=== PATIENT | male | born 1945 | race Caucasian/White ===

== ENCOUNTER → 2016-05-26 | Outpatient (CLI) | payer BC ==
[~2016-05-26] MED LIST: ASPI81TA28 PO; ASTN; ATOR-26 PO; CETI10TA84 PO; CHOL100010 PO; EMERGEN-C PO; LISI-461 PO; MULT-506 PO; TRIA3AER NAE
[2016-05-26 12:21] LABS: BASO % 0.4 %; BASO ABS # 0.02 K/uL (0-0.2); COMPLETE YES; EOS % 0.6 %; HEMATOCRIT 44.5 % (42-52); IG% 0.4 %; LYMPH % 44.3 %; LYMPH ABS # 2.33 K/uL (1.2-3.4); MEAN CELL VOLUME 81.5 fL (80-100); MEAN CORPUSCULAR HEMOGLOBIN 27.5 pg (25-34); MEAN CORPUSCULAR HGB CONC 33.7 g/dl (32-36); MEAN PLATELET VOLUME 8.8 fL (7.4-10.4); MONO % 4.4 %; NEUT % 49.9 %; PLATELET COUNT 195 K/uL (130-400); RED BLOOD COUNT 5.46 M/uL (4.7-6.1); WHITE BLOOD COUNT 5.26 K/uL (4.8-10.8)
[2016-05-26 12:50] LABS: CHOLESTEROL/HDL RATIO 3.3
== END | disposition home or self-care (01) ==
LOC: C.LABBFT 07:44
PROVIDERS: ATTEND Internal Medicine
DX: E78.00 Pure hypercholesterolemia, unspecified (principal); D72.819 Decreased white blood cell count, unspecified

== ENCOUNTER → 2016-06-09 | Outpatient (CLI) | payer BC ==
--- NOTE | 2016-06-09 13:29 | DIAGNOSTIC IMAGING REPORT ---
Limited inguinal ultrasound ABDOMEN FOR HERNIA CLINICAL HISTORY: Hernia hernia repair TECHNIQUE: Ultrasound COMPARISON STUDY: 02/16/2016 FINDINGS: Reducible fat-containing left inguinal hernia. Interval placement of what appears to be post operative mesh. No evidence of bowel containment. IMPRESSION: 1. Reducible fat-containing left inguinal hernia. 2. Mesh within the soft tissues from a prior repair attempt 3. No evidence for bowel containment Electronically signed by: Sergio Martin M.D. 06/09/2016 1:28 PM Dictated Date/Time: 06/09/2016 1:25 PM
== END | disposition home or self-care (01) ==
LOC: C.ULTRBC 12:39
PROVIDERS: ATTEND Internal Medicine
DX: K40.90 Unilateral inguinal hernia, without obstruction or gangrene, not specified as recurrent (principal)

== ENCOUNTER → 2016-12-20 | Outpatient (CLI) | payer BC ==
[2016-12-20 12:13] LABS: URINE APPEARANCE CLEAR (CLEAR); URINE BILIRUBIN NEG (NEG); URINE COLOR YELLOW; URINE EPITHELIAL CELL AUTO 0-5 /lpf (0-5); URINE NITRITE NEG (NEG); URINE SPECIFIC GRAVITY 1.014 (1.000-1.030); UROBILINOGEN NEG (NEG); ZZUR CULT IF INDIC CLEAN CATCH NO
[2016-12-20 12:14] LABS: MANUAL MICROSCOPIC REQUIRED? NO; REVIEW REQ? NO
[2016-12-20 12:26] LABS: BLOOD UREA NITROGEN 14 mg/dl (7-18); BUN/CREATININE RATIO 14.7 (10-20); CALCIUM 8.9 mg/dl (8.5-10.1); CARBON DIOXIDE 27 mmol/L (21-32); CHLORIDE 106 mmol/L (98-107); CREATININE 0.95 mg/dl (0.60-1.40); GLUCOSE 91 mg/dl (70-99); POTASSIUM 3.8 mmol/L (3.5-5.1); SODIUM 139 mmol/L (136-145)
--- NOTE | 2017-01-04 09:10 | CODING QUERY MEDICAL NECESSITY ---
CQSUPPORTING DIAGNOSIS NEEDED A supporting diagnosis is required for the test/procedure performed on this patient in order for us to be reimbursed by the patient's insurance. Please provide a supporting diagnosis for the following test/procedure listed below next to the test name along with your signature. *If there is no additional diagnosis for this patient that would support the following test/procedure please document that below next to the test/procedure. Test(s)/Procedure(s) that require a supporting diagnosis: DOS 12/20/16 PROSTATE SPECIFIC TEST Provider Signature: Date: Thank you Ronda Myers [employer] Once completed, please kindly fax back to [phone] For questions please call [phone]
== END | disposition home or self-care (01) ==
LOC: C.LABBFT 09:06
PROVIDERS: ATTEND Internal Medicine
DX: Z00.00 Encounter for general adult medical examination without abnormal findings (principal); I10 Essential (primary) hypertension; E78.00 Pure hypercholesterolemia, unspecified; N52.9 Male erectile dysfunction, unspecified

== ENCOUNTER → 2017-03-17 | Outpatient (CLI) | payer BC ==
[~2017-03-17] VITALS: Ht 170.2 cm; Wt 87.7 kg
[2017-03-17 13:05] VITALS: BP 149/81; PULSE 69; Ht 170.2 cm; Wt 87.7 kg
== END | disposition home or self-care (01) ==
LOC: C.NEUR 12:30
PROVIDERS: ATTEND Internal Medicine Pulmonary Disease
DX: G47.30 Sleep apnea, unspecified (principal); I10 Essential (primary) hypertension

== ENCOUNTER → 2017-06-20 | Outpatient (CLI) | payer BC ==
[2017-06-20 12:49] LABS: ALT/SGPT 30 U/L (12-78); AST/SGOT 16 U/L (15-37); BLOOD UREA NITROGEN 12 mg/dl (7-18); CHOLESTEROL 145 mg/dl (0-200); CREATININE 0.92 mg/dl (0.60-1.40)
[2017-06-20 13:02] LABS: LDL CHOLESTEROL CALCULATED 77 mg/dl
== END | disposition home or self-care (01) ==
LOC: C.LABBFT 08:29
PROVIDERS: ATTEND Physician Assistant Medical
DX: E78.00 Pure hypercholesterolemia, unspecified (principal); I10 Essential (primary) hypertension; R97.20 Elevated prostate specific antigen [PSA]

== ENCOUNTER → 2017-07-18 | Outpatient (CLI) | payer BC ==
[2017-07-19 18:16] LABS: GUINEA PIG ALLERGEN IGE <0.10 KU/L
== END | disposition home or self-care (01) ==
LOC: C.LAB1850 11:23
PROVIDERS: ATTEND Specialist
DX: J01.90 Acute sinusitis, unspecified (principal); J30.89 Other allergic rhinitis; H10.45 Other chronic allergic conjunctivitis

== ENCOUNTER 2017-11-02 19:55 | Emergency (ER) | payer BC ==
[~2017-11-02] VITALS: Ht 170.2 cm; Wt 86.8 kg
[2017-11-02 19:56] VITALS: TEMP 36.7; Ht 170.2 cm; Wt 86.8 kg
[2017-11-02] MEDS ORDERED: DIPHTHERIA/TETANUS/PERTUSSIS 0.5 ML SYR/VIAL IM. ONE ×2 (20:15→23:00)
--- NOTE | 2017-11-02 20:34 | DIAGNOSTIC IMAGING REPORT ---
SINGLE VIEW CHEST CLINICAL HISTORY: Atypical chest pain. FINDINGS: An AP, portable, upright chest radiograph is obtained. No prior studies are available for comparison at the time of dictation. The examination is degraded by portable technique and patient rotation. The heart is enlarged and there is atherosclerotic calcification of the thoracic aorta. The pulmonary vasculature is noncongested. Bibasilar atelectasis is noted. No airspace consolidation, large pleural effusion, or pneumothorax is seen. The skeletal structures are osteopenic. There are age indeterminant right lateral rib fractures. IMPRESSION: 1. Cardiomegaly with no acute cardiopulmonary abnormality. 2. There are age indeterminant right lateral rib fractures. Correlate for point tenderness. Electronically signed by: Israel Simmons M.D. 11/02/2017 8:33 PM Dictated Date/Time: 11/02/2017 8:31 PM
[2017-11-02 20:38] LABS: BASO % 0.2 %; BASO ABS # 0.01 K/uL (0-0.2); EOS % 0.6 %; EOS ABS # 0.03 K/uL (0-0.5); HEMATOCRIT 43.5 % (42-52); HEMOGLOBIN 14.7 g/dL (14.0-18.0); IG# 0.02 K/uL (0.00-0.02); LYMPH % 27.2 %; LYMPH ABS # 1.47 K/uL (1.2-3.4); MEAN CELL VOLUME 82.1 fL (80-100); MEAN CORPUSCULAR HEMOGLOBIN 27.7 pg (25-34); MEAN CORPUSCULAR HGB CONC 33.8 g/dl (32-36); MEAN PLATELET VOLUME 8.9 fL (7.4-10.4); MONO % 7.6 %; MONO ABS # 0.41 K/uL (0.11-0.59); NEUT ABS # 3.47 K/uL (1.4-6.5); PLATELET COUNT 162 K/uL (130-400); RED CELL DISTRIBUTION WIDTH CV 14.9 % (11.5-14.5); RED CELL DISTRIBUTION WIDTH SD 44.6 fL (36.4-46.3); WHITE BLOOD COUNT 5.41 K/uL (4.8-10.8)
--- NOTE | 2017-11-02 20:53 | EMERGENCY ROOM VISIT NOTE ---
History Report prepared by Kiel: Pari Jenkins Under the Supervision of: Dr. Vern Petersen M.D. First contact with patient: 20:01 Chief Complaint: SYNCOPE Stated Complaint: BLACKED OUT, HIT HEAD ON TOP, FACIAL INJURIES History of Present Illness The patient is a 72 year old male who presents to the Emergency Room with complaints of an episode of syncope that occurred just prior to arrival. The patient states that he was drinking a beer at a friend's house when he suddenly felt like "it did not want to go down the right pipe." The patient notes he had drunk 2 beers prior. The patient notes that he then passed out for a few seconds and fell and hit his face. The patient reports that he has had similar difficulty swallowing and subsequent dizziness for years, but he states that has never fallen from such an episode. The patient notes that he felt fine before he passed out and that after he regained consciousness, his lip was bleeding. He notes that his teeth did not feel offset and he did not have a headache. The patient also denies feeling sick lately, chest pain, dizziness, shortness of breath, neck pain, abdominal pain, numbness, and weakness. He also denies any seizure activity during his syncope and any major injuries. Per spouse, the patient has not been acting confused since the episode. The patient notes that he is probably due for a Tetanus shot soon. The patient reports a history of hypertension and hyperlipidemia, and he notes that he takes Aspirin. Source of History: patient, spouse/significant other Onset: just prior to arrival Position: head Quality: other (syncope) Timing: other (episode) Associated Symptoms: No headache, No neck pain, No chest pain, No SOB, No abdominal pain, No weakness, No numbness Note: additional symptoms: bleeding lip, difficulty swallowing denies: dizziness Review of Systems See HPI for pertinent positives & negatives. A total of 10 systems reviewed and were otherwise negative. Past Medical & Surgical Medical Problems: (1) Hyperlipidemia (2) Hypertension Old medical records were reviewed. Nurse's notes were reviewed and I agree with. Family History No pertinent family history Social History Smoking Status: Never Smoker Marital Status: Current/Historical Medications Scheduled Amoxicillin & Pot Clavulanate (Augmentin 875-125 mg), 875 MG PO BID Aspirin (Aspirin Ec), 81 MG PO DAILY Atorvastatin (Lipitor), 80 MG PO QAM Cetirizine (Zyrtec), 10 MG PO DAILY Fluticasone Propionate (Nasal) (Flonase Allergy Relief), 2 SPRAYS MICHAELA QAM Lisinopril (Zestril), 10 MG PO DAILY Multivitamin (Multivitamin), 1 TAB PO DAILY Scheduled PRN Azelastine Hcl (Astelin Nasal [place]), 2 SPRAYS NA DAILY PRN for SEASONAL ALLERGIES Allergies Coded Allergies: No Known Allergies (Unverified , 11/02/17) Physical Exam Vital Signs Date Time Temp Pulse Resp B/P (MAP) Pulse Ox O2 Delivery O2 Flow Rate FiO2 11/02/17 23:39 59 18 193/79 97 11/02/17 23:05 59 18 193/79 97 Room Air 11/02/17 22:23 51 18 198/81 96 Room Air 11/02/17 21:08 59 11/02/17 20:59 54 16 173/86 97 Room Air 11/02/17 19:56 36.7 64 18 201/90 96 Room Air Physical Exam General: Well developed well nourished non ill-appearing middle aged male in no acute distress, breathing comfortably on room air. Normal speech HEENT: Normal cephalic. Pupils are equal round and reactive to light. Extraocular movements are intact. Abrasion to the right face. Oropharynx is pink with moist mucous membranes. Laceration above the right lip that appears to go through. Several centimeter lower lip laceration. No dental abnormalities. No swelling of the mouth lips or tongue. Neck: Supple with a midline trachea. No meningeal signs or stiffness, no JVD or bruits. No Stridor. Chest: Clear to auscultation bilaterally. No wheezes or rhonchi. No increased work of breathing. Heart: regular rate and rhythm. Abdomen: Soft nontender, nondistended without rebound guarding or rigidity. Extremities: No cyanosis clubbing or edema. No calf tenderness or assymetry Spine/Back. Non tender to palpation. No CVA tenderness Skin: Good turgor without rashes. Small abrasion on the right hand. Neurologic exam: Cranial nerves two through 12 are intact. Motor and sensation are intact and symmetrical throughout. Medical Decision & Procedures ER Provider Diagnostic Interpretation: Radiology results as stated below per my review and radiologist interpretation: SINGLE VIEW CHEST CLINICAL HISTORY: Atypical chest pain. FINDINGS: An AP, portable, upright chest radiograph is obtained. No prior studies are available for comparison at the time of dictation. The examination is degraded by portable technique and patient rotation. The heart is enlarged and there is atherosclerotic calcification of the thoracic aorta. The pulmonary vasculature is noncongested. Bibasilar atelectasis is noted. No airspace consolidation, large pleural effusion, or pneumothorax is seen. The skeletal structures are osteopenic. There are age indeterminant right lateral rib fractures. IMPRESSION: 1. Cardiomegaly with no acute cardiopulmonary abnormality. 2. There are age indeterminant right lateral rib fractures. Correlate for point tenderness. Electronically signed by: Israel Simmons M.D. 11/02/2017 8:33 PM Dictated Date/Time: 11/02/2017 8:[address] SCAN OF THE FACIAL BONES WITHOUT IV CONTRAST CLINICAL HISTORY: Trauma. COMPARISON STUDY: CT of the brain performed concurrently on 11/02/2017. TECHNIQUE: High-resolution CT scan of the facial bones is performed. Images are reviewed in the axial, sagittal, and coronal planes. IV contrast was not administered for this examination. A dose lowering technique was utilized adhering to the principles of ALARA. FINDINGS: The skeletal structures are osteopenic. There is no evidence of facial bone fracture. The bony orbits are intact and the orbital contents are within normal limits. The zygomatic arches, nasal bones, and pterygoid plates are preserved. The maxilla and mandible are intact. There are no layering blood products within the paranasal sinuses. There is trace mucosal thickening within the right maxillary antrum. The sinuses and mastoids are otherwise clear. The visualized calvarium and upper cervical spine are maintained. Partially imaged brain parenchyma is within normal limits. IMPRESSION: There is no evidence of facial bone fracture. Electronically signed by: Israel Simmons M.D. 11/02/2017 8:55 PM Dictated Date/Time: 11/02/2017 8:[address] SCAN OF THE BRAIN WITHOUT IV CONTRAST CLINICAL HISTORY: Trauma. COMPARISON STUDY: No priors. TECHNIQUE: Unenhanced axial CT scan of the brain is performed from the vertex to the skull base. A dose lowering technique was utilized adhering to the principles of ALARA. CT DOSE: 1010.96 mGy.cm FINDINGS: Brain parenchyma: There are age-related involutional changes noting minimal subcortical and periventricular microangiopathic change. There is no hemorrhage, mass effect, or evidence of acute territorial ischemia by CT criteria. Wen-white matter is preserved. No extra-axial fluid collection is seen. Ventricles, sulci, cisterns: Prominent secondary to involutional change. Intracranial vasculature: There is atherosclerotic calcification of the cavernous carotid arteries. Calvarium: The skeletal structures are osteopenic. There is no depressed calvarial fracture. Sinuses and mastoids: The visualized paranasal sinuses are clear. The mastoid air cells are well pneumatized. Orbits: The bony orbits are grossly intact. IMPRESSION: There is no hemorrhage, mass effect, or evidence of acute territorial ischemia by CT criteria. Electronically signed by: Israel Simmons M.D. 11/02/2017 8:51 PM Dictated Date/Time: 11/02/2017 8:[address] SCAN OF THE CERVICAL SPINE CLINICAL HISTORY: Trauma. COMPARISON STUDY: No priors. TECHNIQUE: CT scan of the cervical spine is performed from the skull base to the upper thoracic spine. Images are reviewed in the axial, sagittal, and coronal planes. IV contrast was not administered for this examination. A dose lowering technique was utilized adhering to the principles of ALARA. FINDINGS: Skeletal structures: The skeletal structures are osteopenia. There is no evidence of fracture or subluxation involving the cervical spine. Vertebral body height and alignment are maintained. There is straightening of the cervical lordosis with reversal centered at C4-C5. Small anterior osteophytes are seen throughout. The odontoid process and lateral masses are intact. The atlantoaxial articulation is preserved noting mild productive degenerative change. The spinous processes appear intact. There is mild multilevel cervical spondylosis. Uncovertebral and facet arthropathy are seen at several levels. Intervertebral discs: Moderate disc space narrowing is seen at C3-C4, C5-C6, and C6-C7. Central canal: Posterior disc osteophyte complexes at C3-C4, C4-C5, C5-C6, and C6-C7 may contribute to mild multilevel acquired compromise of the central canal. Soft tissues: The prevertebral and paraspinous soft tissues are within normal limits. There is atherosclerotic calcification of the carotid bulbs. Calvarium: The visualized calvarium at the skull base appears intact. Brain parenchyma: Partially visualized brain parenchyma the skull base is within normal limits. Sinuses and mastoids: The visualized paranasal sinuses are clear. The mastoid air cells are well pneumatized. Lung apices: Clear as visualized. IMPRESSION: 1. There is no evidence of fracture or subluxation involving the cervical spine. 2. Osteopenia and mild spondylotic change as above. Electronically signed by: Israel Simmons M.D. 11/02/2017 8:58 PM Dictated Date/Time: 11/02/2017 8:55 PM Laboratory Results 11/02/17 20:25 Red Blood Count 5.30, Mean Corpuscular Volume 82.1, Mean Corpuscular Hemoglobin 27.7, Mean Corpuscular Hemoglobin Concent 33.8, Mean Platelet Volume 8.9, Neutrophils (%) (Auto) 64.0, Lymphocytes (%) (Auto) 27.2, Monocytes (%) (Auto) 7.6, Eosinophils (%) (Auto) 0.6, Basophils (%) (Auto) 0.2, Neutrophils # (Auto) 3.47, Lymphocytes # (Auto) 1.47, Monocytes # (Auto) 0.41, Eosinophils # (Auto) 0.03, Basophils # (Auto) 0.01 11/02/17 20:25 Test 11/02/17 20:25 11/02/17 20:37 White Blood Count 5.41 K/uL (4.8-10.8) Red Blood Count 5.30 M/uL (4.7-6.1) Hemoglobin 14.7 g/dL (14.0-18.0) Hematocrit 43.5 % (42-52) Mean Corpuscular Volume 82.1 fL (80-100) Mean Corpuscular Hemoglobin 27.7 pg (25-34) Mean Corpuscular Hemoglobin Concent 33.8 g/dl (32-36) Platelet Count 162 K/uL (130-400) Mean Platelet Volume 8.9 fL (7.4-10.4) Neutrophils (%) (Auto) 64.0 % Lymphocytes (%) (Auto) 27.2 % Monocytes (%) (Auto) 7.6 % Eosinophils (%) (Auto) 0.6 % Basophils (%) (Auto) 0.2 % Neutrophils # (Auto) 3.47 K/uL (1.4-6.5) Lymphocytes # (Auto) 1.47 K/uL (1.2-3.4) Monocytes # (Auto) 0.41 K/uL (0.11-0.59) Eosinophils # (Auto) 0.03 K/uL (0-0.5) Basophils # (Auto) 0.01 K/uL (0-0.2) RDW Standard Deviation 44.6 fL (36.4-46.3) RDW Coefficient of Variation 14.9 % (11.5-14.5) Immature Granulocyte % (Auto) 0.4 % Immature Granulocyte # (Auto) 0.02 K/uL (0.00-0.02) Anion Gap 8.0 mmol/L (3-11) Est Creatinine Clear Calc Drug Dose 75.0 ml/min Estimated GFR () 93.0 Estimated GFR (Non- 80.2 BUN/Creatinine Ratio 17.6 (10-20) Calcium Level 9.0 mg/dl (8.5-10.1) Total Bilirubin 0.5 mg/dl (0.2-1) Direct Bilirubin 0.1 mg/dl (0-0.2) Aspartate Amino Transf (AST/SGOT) 23 U/L (15-37) Alanine Aminotransferase (ALT/SGPT) 33 U/L (12-78) Alkaline Phosphatase 72 U/L (45-117) Total Protein 7.2 gm/dl (6.4-8.2) Albumin 4.1 gm/dl (3.4-5.0) Lipase 159 U/L (73-393) Ethyl Alcohol mg/dL 15.9 mg/dl (0-3) Bedside Troponin I 0.030 ng/ml (0-0.045) Laboratory studies as stated above per my review. Medications Administered Medications (Trade) Dose Ordered Sig/Emilio Route Start Time Stop Time Status Last Admin Dose Admin Diphtheria/ Pertussis/Tetanus Vacc (Adacel Inj) 0.5 ml ONCE ONCE IM. 11/02/17 23:00 11/02/17 23:01 DC 11/02/17 23:03 0.5 ML Amoxicillin/ Clavulanate Potassium (Augmentin 875MG Home Pack) 1 homepack UD ONCE PO 11/02/17 23:00 11/02/17 23:02 DC 11/02/17 23:30 1 HOMEPACK ECG Per My Interpretation Indication: syncope Rate (beats per minute): 57 Rhythm: sinus bradycardia Findings: nonspecific-ST abn, PVC (occasional), no acute ischemic change Comparison ECG Date: no prior available ED Course 2001: Past medical records reviewed. The patient was evaluated in room C1B, and a complete history and physical examination were performed. 2024: I checked on the patient and the patient is stable. The patient is getting his blood work done. I talked to the patient's daughter, who is a nurse , and she is in agreement with the treatment plan. 2108: I reevaluated the patient and talked to the patient's family. I updated his family on the patient's condition and treatment plan. 2133: DEBBIE Paz will be repairing the patient's facial laceration. 2299: Ordered Amoxicillin/Clavulanate Potassium 1 homepack PO, Adacel Inj 0.5 ml IM. Medical Decision Differentials include, but are not limited to; syncope, arrhythmia, facial injury, head injury, orthopedic injuries. This patient comes in as described above. He was placed in room C1. He had a syncopal episode and hit his face. He was drinking and he said that it felt like he had a hard time swallowing and he passed out he has had this multiple times before but never passed out. No chest pain or shortness of breath. He is alert or 3 with a Fredi Coma Score 15. I did a CAT scan of his head face and neck. They were unremarkable. EKG shows no definite acute ischemic changes or significant ectopy with exception of PVCs. He has no acute electrolyte or metabolic abnormalities. his troponin is within normal limits. He was updated with a test this booster with Adacel. His lacerations were repaired by Cade Pritchard. he was started on a Augmentin given that through and through of the upper lip laceration. His syncope I think most likely was vasovagal from not being able swallow. He feels good and would like to go home and does not want to be admitted. I think this is reasonable to send him home with close follow-up with his doctor tomorrow he should return if: worsening of symptoms, recurrence of some chest pain, shortness of breath, any new problems or concerns or any problems with the wounds. He was happy with the plan and discharged home. He should have his stitches out in 5 days. Medication Reconcilliation Current Medication List: was personally reviewed by me Blood Pressure Screening Patient's blood pressure: Elevated blood pressure Blood pressure disposition: Elevated BP felt to be situational Impression Primary Impression: Syncope Additional Impressions: Facial laceration Skin tear Abrasion of left hand Scribe Attestation The scribe's documentation has been prepared under my direction and personally reviewed by me in its entirety. I confirm that the note above accurately reflects all work, treatment, procedures, and medical decision making performed by me. Departure Information Dispostion Home / Self-Care Prescriptions Amoxicillin & Pot Clavulanate (Augmentin 875-125 mg) 1 Tab Tab 875 MG PO BID for 5 Days, #10 TAB Prov: Vern Petersen M.D. 11/02/17 Referrals Philippe Smith M.D. (PCP) Forms HOME CARE DOCUMENTATION FORM, IMPORTANT VISIT INFORMATION Patient Instructions My [facility] Additional Instructions Rest Drink plenty of fluids Augmentin 875 mg twice a day for 5 days REturn if: worsening of symptoms, chest pain, dizziness, any problems with wounds such as fever, pus, drainage, redness or warmth. Have your doctor recheck you tomorrow REturn in 5 days for suture removal You have recieved a tetanus booster today Problem Qualifiers
--- NOTE | 2017-11-02 20:56 | DIAGNOSTIC IMAGING REPORT ---
CT SCAN OF THE FACIAL BONES WITHOUT IV CONTRAST CLINICAL HISTORY: Trauma. COMPARISON STUDY: CT of the brain performed concurrently on 11/02/2017. TECHNIQUE: High-resolution CT scan of the facial bones is performed. Images are reviewed in the axial, sagittal, and coronal planes. IV contrast was not administered for this examination. A dose lowering technique was utilized adhering to the principles of ALARA. FINDINGS: The skeletal structures are osteopenic. There is no evidence of facial bone fracture. The bony orbits are intact and the orbital contents are within normal limits. The zygomatic arches, nasal bones, and pterygoid plates are preserved. The maxilla and mandible are intact. There are no layering blood products within the paranasal sinuses. There is trace mucosal thickening within the right maxillary antrum. The sinuses and mastoids are otherwise clear. The visualized calvarium and upper cervical spine are maintained. Partially imaged brain parenchyma is within normal limits. IMPRESSION: There is no evidence of facial bone fracture. Electronically signed by: Israel Simmons M.D. 11/02/2017 8:55 PM Dictated Date/Time: 11/02/2017 8:52 PM
[2017-11-02 20:58] LABS: ALBUMIN 4.1 gm/dl (3.4-5.0); CREATININE 0.95 mg/dl (0.60-1.40); POTASSIUM 3.5 mmol/L (3.5-5.1); TOTAL PROTEIN 7.2 gm/dl (6.4-8.2)
--- NOTE | 2017-11-02 20:59 | DIAGNOSTIC IMAGING REPORT ---
CT SCAN OF THE CERVICAL SPINE CLINICAL HISTORY: Trauma. COMPARISON STUDY: No priors. TECHNIQUE: CT scan of the cervical spine is performed from the skull base to the upper thoracic spine. Images are reviewed in the axial, sagittal, and coronal planes. IV contrast was not administered for this examination. A dose lowering technique was utilized adhering to the principles of ALARA. FINDINGS: Skeletal structures: The skeletal structures are osteopenia. There is no evidence of fracture or subluxation involving the cervical spine. Vertebral body height and alignment are maintained. There is straightening of the cervical lordosis with reversal centered at C4-C5. Small anterior osteophytes are seen throughout. The odontoid process and lateral masses are intact. The atlantoaxial articulation is preserved noting mild productive degenerative change. The spinous processes appear intact. There is mild multilevel cervical spondylosis. Uncovertebral and facet arthropathy are seen at several levels. Intervertebral discs: Moderate disc space narrowing is seen at C3-C4, C5-C6, and C6-C7. Central canal: Posterior disc osteophyte complexes at C3-C4, C4-C5, C5-C6, and C6-C7 may contribute to mild multilevel acquired compromise of the central canal. Soft tissues: The prevertebral and paraspinous soft tissues are within normal limits. There is atherosclerotic calcification of the carotid bulbs. Calvarium: The visualized calvarium at the skull base appears intact. Brain parenchyma: Partially visualized brain parenchyma the skull base is within normal limits. Sinuses and mastoids: The visualized paranasal sinuses are clear. The mastoid air cells are well pneumatized. Lung apices: Clear as visualized. IMPRESSION: 1. There is no evidence of fracture or subluxation involving the cervical spine. 2. Osteopenia and mild spondylotic change as above. Electronically signed by: Israel Simmons M.D. 11/02/2017 8:58 PM Dictated Date/Time: 11/02/2017 8:55 PM
[2017-11-02] MEDS ORDERED: LIDOCAINE 1% BUFFERED INJ 20 ML VIAL INFIL ONE (21:15)
--- NOTE | 2017-11-02 22:19 | EMERGENCY ROOM VISIT NOTE ---
ED Visit Note Patient was seen and evaluated at the request of my attending physician, Dr. Petersen, for multiple facial lacerations. Please see Dr. Petersen's dictation for full history of present illness emergency department course outside of these repairs. On examination the patient has a V-shaped 1.5 cm laceration above the right upper lip. There is an additional 1.5 cm V-shaped laceration angle of the mandible. The lower lip has a fairly linear 2.8 cm laceration that does cross the vermilion border. There is some communication of the laceration of the right upper lip into the inside of the oropharynx, causing an 8 mm laceration inside the mouth. Complex Laceration repair. Patient elects to have their lacerations repaired. Verbal consent was obtained to perform the procedures. There is an abundance of materials available for the procedure. Patient is not allergic to latex. Using sterile technique the wounds were cleaned with Betadine. The area was sterilely draped. 6 ml of 1% buffered lidocaine was used to anesthetize the multiple lacerations. Once the patient was anesthetized, the wounds were copiously irrigated under pressure with sterile saline. The wounds were explored and there were no deep structures injured such as tendons, bone, or significant blood vessels. The upper lip V shaped laceration was repaired using 2 simple interrupted 5-0 nylon sutures with the wound edges being well approximated. The right lower jawline laceration was repaired using 2 simple interrupted 5-0 nylon sutures with the wound edges being well approximated. The linear lower lip laceration was repaired using 7 simple interrupted 6-0 vicryl sutures with the wound edges being well approximated. The upper lip inner mouth laceration was repaired using 1 simple interrupted 6- 0 vicryl sutures with the wound edges being well approximated. Hemostasis was achieved. The areas were cleaned with sterile saline and dressed with bacitracin ointment and bandage. Patient tolerated the procedure well without complications. Blood loss was negligible. Problem List Medical Problems: (1) Hyperlipidemia Status: Chronic (2) Hypertension Status: Chronic Current/Historical Medications Scheduled Aspirin (Aspirin Ec), 81 MG PO DAILY Atorvastatin (Lipitor), 80 MG PO QAM Cetirizine (Zyrtec), 10 MG PO DAILY Lisinopril (Zestril), 10 MG PO DAILY Multivitamin (Multivitamin), 1 TAB PO DAILY Scheduled PRN Azelastine Hcl (Astelin Nasal [place]), 1-2 SPRAYS NA BID PRN for SEASONAL ALLERGIES Cholecalciferol (Vitamin D), 2,000 INTER.UNIT PO DAILY PRN Triamcinolone Acet (Nasacort-Aq Nasal Inh), 2 SPRAYS MICHAELA DAILY PRN for SEASONAL ALLERGIES [Emergen-C], 1 PACK PO DAILY PRN for PRN Allergies Coded Allergies: No Known Allergies (Unverified , 06/05/13) Vital Signs Date Time Temp Pulse Resp B/P (MAP) Pulse Ox O2 Delivery O2 Flow Rate FiO2 11/02/17 21:08 59 11/02/17 20:59 54 16 173/86 97 Room Air 11/02/17 19:56 36.7 64 18 201/90 96 Room Air Laboratory Results 11/02/17 20:25 Red Blood Count 5.30, Mean Corpuscular Volume 82.1, Mean Corpuscular Hemoglobin 27.7, Mean Corpuscular Hemoglobin Concent 33.8, Mean Platelet Volume 8.9, Neutrophils (%) (Auto) 64.0, Lymphocytes (%) (Auto) 27.2, Monocytes (%) (Auto) 7.6, Eosinophils (%) (Auto) 0.6, Basophils (%) (Auto) 0.2, Neutrophils # (Auto) 3.47, Lymphocytes # (Auto) 1.47, Monocytes # (Auto) 0.41, Eosinophils # (Auto) 0.03, Basophils # (Auto) 0.01 11/02/17 20:25 Test 11/02/17 20:25 11/02/17 20:37 White Blood Count 5.41 K/uL (4.8-10.8) Red Blood Count 5.30 M/uL (4.7-6.1) Hemoglobin 14.7 g/dL (14.0-18.0) Hematocrit 43.5 % (42-52) Mean Corpuscular Volume 82.1 fL (80-100) Mean Corpuscular Hemoglobin 27.7 pg (25-34) Mean Corpuscular Hemoglobin Concent 33.8 g/dl (32-36) Platelet Count 162 K/uL (130-400) Mean Platelet Volume 8.9 fL (7.4-10.4) Neutrophils (%) (Auto) 64.0 % Lymphocytes (%) (Auto) 27.2 % Monocytes (%) (Auto) 7.6 % Eosinophils (%) (Auto) 0.6 % Basophils (%) (Auto) 0.2 % Neutrophils # (Auto) 3.47 K/uL (1.4-6.5) Lymphocytes # (Auto) 1.47 K/uL (1.2-3.4) Monocytes # (Auto) 0.41 K/uL (0.11-0.59) Eosinophils # (Auto) 0.03 K/uL (0-0.5) Basophils # (Auto) 0.01 K/uL (0-0.2) RDW Standard Deviation 44.6 fL (36.4-46.3) RDW Coefficient of Variation 14.9 % (11.5-14.5) Immature Granulocyte % (Auto) 0.4 % Immature Granulocyte # (Auto) 0.02 K/uL (0.00-0.02) Anion Gap 8.0 mmol/L (3-11) Est Creatinine Clear Calc Drug Dose 75.0 ml/min Estimated GFR () 93.0 Estimated GFR (Non- 80.2 BUN/Creatinine Ratio 17.6 (10-20) Calcium Level 9.0 mg/dl (8.5-10.1) Total Bilirubin 0.5 mg/dl (0.2-1) Direct Bilirubin 0.1 mg/dl (0-0.2) Aspartate Amino Transf (AST/SGOT) 23 U/L (15-37) Alanine Aminotransferase (ALT/SGPT) 33 U/L (12-78) Alkaline Phosphatase 72 U/L (45-117) Total Protein 7.2 gm/dl (6.4-8.2) Albumin 4.1 gm/dl (3.4-5.0) Lipase 159 U/L (73-393) Ethyl Alcohol mg/dL 15.9 mg/dl (0-3) Bedside Troponin I 0.030 ng/ml (0-0.045) Departure Information Referrals Philippe Smith M.D. (PCP) Patient Instructions My [facility]
[2017-11-02] MEDS ORDERED: FLUT0.15 NAE (22:42)
[2017-11-02] MEDS ORDERED: AMOX875T PO (23:00)
[2017-11-02] MEDS ORDERED: AMOXICIL/CLAVU 875MG HOME PACK PO ONE (23:00)
[2017-11-02 23:39] VITALS: BP 193/79; PULSE 59; O2SAT 97
== END 2017-11-02 23:32 | disposition home or self-care (01) ==
LOC: C.EDB 19:55 → C.EDC 23:32
DX: R55 Syncope and collapse (principal); S01.511A Laceration without foreign body of lip, initial encounter; S00.81XA Abrasion of other part of head, initial encounter; S60.512A Abrasion of left hand, initial encounter; R00.1 Bradycardia, unspecified; Z23 Encounter for immunization; I10 Essential (primary) hypertension; E78.5 Hyperlipidemia, unspecified; Z79.82 Long term (current) use of aspirin; Z79.899 Other long term (current) drug therapy; W19.XXXA Unspecified fall, initial encounter

== ENCOUNTER 2017-11-07 09:57 | Emergency (ER) | payer BC ==
[~2017-11-07] VITALS: Ht 167.6 cm; Wt 86.1 kg
[~2017-11-07 09:57] MED LIST changes: +AMOX875T PO; -CHOL100010 PO; -EMERGEN-C PO; +FLUT0.15 NAE; -TRIA3AER NAE
[2017-11-07 09:58] VITALS: BP 164/82; PULSE 55; TEMP 36.4; O2SAT 97; Ht 167.6 cm; Wt 86.1 kg
--- NOTE | 2017-11-07 10:18 | EMERGENCY ROOM VISIT NOTE ---
ED Visit Note First contact with patient: 10:05 CHIEF COMPLAINT: Suture removal facial laceration HPI: This 32-year-old male patient returns to the ED today for removal of sutures that were placed 5 days ago into the face.. There has been no swelling , redness, or drainage from the wound. The patient feels like the laceration is healing well. REVIEW OF SYSTEMS: 3 system review was performed and was negative unless stated otherwise in history of present illness. PMH: The patient is healthy; hypertension, hyperlipidemia SOCIAL HISTORY: Patient lives at home. PHYSICAL EXAM: Vital Signs: Were reviewed reviewed Nurse's notes. GENERAL: 72- year-old white male appears in no acute distress. MENTAL Status: Alert and oriented 3. FACE: There are 2 sutured wounds on the right side of the face with no signs of infection. There is no erythema, swelling, or tenderness. EMERGENCY DEPARTMENT COURSE: The sutures were removed without any difficulty and there was no separation of the wound edges. DIAGNOSIS: 2 healing facial laceration and suture removal DISCHARGE INSTRUCTIONS AND TREATMENT: Wash any remaining crusts off of the wound today and resume your normal activities. Problem List Medical Problems: (1) Hyperlipidemia Status: Chronic (2) Hypertension Status: Chronic Current/Historical Medications Scheduled Amoxicillin & Pot Clavulanate (Augmentin 875-125 mg), 875 MG PO BID Aspirin (Aspirin Ec), 81 MG PO DAILY Atorvastatin (Lipitor), 80 MG PO QAM Cetirizine (Zyrtec), 10 MG PO DAILY Fluticasone Propionate (Nasal) (Flonase Allergy Relief), 2 SPRAYS MICHAELA QAM Lisinopril (Zestril), 10 MG PO DAILY Multivitamin (Multivitamin), 1 TAB PO DAILY Scheduled PRN Azelastine Hcl (Astelin Nasal [place]), 2 SPRAYS NA DAILY PRN for SEASONAL ALLERGIES Allergies Coded Allergies: No Known Allergies (Unverified , 11/02/17) Vital Signs Date Time Temp Pulse Resp B/P (MAP) Pulse Ox O2 Delivery O2 Flow Rate FiO2 11/07/17 09:58 36.4 55 18 164/82 97 Room Air Departure Information Referrals Philippe Smith M.D. (PCP) Patient Instructions [facility]
== END 2017-11-07 10:35 | disposition home or self-care (01) ==
LOC: C.EDB 09:57 → C.EDC 10:35
DX: S01.81XD Laceration without foreign body of other part of head, subsequent encounter (principal); X58.XXXD Exposure to other specified factors, subsequent encounter

== ENCOUNTER 2018-05-28 08:24 | Observation (INO) ==
--- NOTE | 2018-05-21 16:05 | Anesthesiology Consultation ---
Date of Service May 21, 2018 Assessment & Plan (1) Encounter for pre-operative examination: Chart Review Chart Review: Acceptable Risk for Surgery and Patient NOT seen in Pre Admission Testing History Surgery Operation Date: 05/28/18 11:00 Proposed Procedures p Laparoscopic Ventral Hernia Repair - Daniel Blum MD, FACS Height/Weight Height: 5 ft 6 in Weight: 83.915 kg Allergies Allergy/AdvReac Type Severity Reaction Status Date / Time No Known Allergies Allergy Unverified 05/18/18 12:45 Medications Home Medications Medication Instructions Recorded Confirmed Last Taken Azelastine Hc Nasal Solution 2 spray DAILY 05/18/18 05/18/18 Unknown aspirin [Aspir-81] 81 mg PO DAILY 05/18/18 05/18/18 Unknown atorvastatin 80 mg PO QAM 05/18/18 05/18/18 05/18/18 cetirizine [Zyrtec] 1 tab PO HS 05/18/18 05/18/18 Unknown fluticasone [Flonase Allergy 2 spray INTRANASAL BID 05/18/18 05/18/18 Unknown Relief] lisinopril 20 mg PO QAM 05/18/18 05/18/18 05/18/18 Past Medical History Medical History Cardiac murmur Mild MR seen on echo done for murmur 07/17/17 History of fainting NOV 2017 "BLACK OUT FOR SPLIT SECOND" - had OP eval by neurology, ruled vasovagal, no additional w/u needed. History of skin cancer Hyperlipidemia Hypertension Seasonal allergies Sleep apnea CPAP Past Family History Family History Father Family history of leukemia Past Surgical History Surgical History History of arthroscopy of right knee History of colonoscopy History of hernia repair X2 Social History Smoking Status: Current some day smoker tobacco type: cigars Do You Dip or Chew Tobacco: No (HX OF) Hx Alcohol Use: Yes Alcohol type: beer alcohol intake frequency: 0-2 drinks per day Hx Substance Use: No substance use type: does not use Testing Electrocardiogram Date: 11/02/17 Findings: + SB @ (57) Occasional PVCs. Left axis deviation. Minimal voltage criteria for LVH, maybe normal variant. Nonspecific T wave abnormality. Chest X-Ray Date: 11/02/17 Cardiomegaly with no acute cardiopulmonary abnormality. There are age indeterminant right lateral rib fractures. Correlate for point tenderness. Echocardiogram Date: 07/17/17 EF: 55-60% Left ventricular size, wall motion and systolic function are normal. There is moderate concentric LVH. Grade 2 diastolic dysfunction. Mild AR and MR. Laboratory Results Laboratory Tests 05/17/18 05/17/18 12:18 12:18 WBC 5.27 Hgb 14.3 Hct 43.1 Plt Count 186 Sodium 137 Potassium 3.6 Chloride 109 H Carbon Dioxide 21 BUN 16 Creatinine 1.07 Glucose 102 H
[~2018-05-28 08:24] MED LIST changes: -AMOX875T PO; -ASPI81TA28 PO; -ASTN; -ATOR-26 PO; +CEFAZOLIN 2000MG 2,000 MG/15 ML SYR IV SCH; -CETI10TA84 PO; -FLUT0.15 NAE; -LISI-461 PO; +LR 15ML/HR IV SCH; -MULT-506 PO
[2018-05-28] MEDS ORDERED: ROCURONIUM BROMIDE 10 MG/ML 5 ML VIAL ONE (09:11)
[2018-05-28] MEDS ORDERED: fentaNYL citrate 100 MCG/2 ML VIAL ONE ×2 (09:11→10:31)
[2018-05-28] MEDS ORDERED: LIDOCAINE HCL 2% 2 ML VIAL/AMP(20MG/ML) INFIL ONE (09:11)
[2018-05-28] MEDS ORDERED: MIDAZOLAM HCL 1 MG/ML 2ML VIAL ONE (09:11)
[2018-05-28] MEDS ORDERED: PROPOFOL IV EMULSION 10 MG/ML 20 ML VIAL IV ONE (09:11)
[2018-05-28] MEDS ORDERED: LABETALOL HCL IV 5 MG/ML 20ML IV PRN (09:25)
[2018-05-28] MEDS ORDERED: KETOROLAC TROMETHAMINE 15 MG/ML VIAL IV PRN (09:25)
[2018-05-28] MEDS ORDERED: ONDANSETRON INJ 2 MG/ML 2 ML VIAL IV PRN ×2 (09:25→11:06)
[2018-05-28] MEDS ORDERED: ATROPINE SULFATE 0.1 MG/ML 10ML SYR IV PRN (09:25)
[2018-05-28] MEDS ORDERED: HYDROmorphone INJ 1 MG/ML SYRINGE IV PRN (09:25)
--- NOTE | 2018-05-28 09:50 | History & Physical Bridge Note ---
Date of Service May 28, 2018 History & Physical Bridge Note I have examined the patient, reviewed the History & Physical and in the interval since the performance of the History & Physical I have noted the following changes of clinical significance: no changes noted
[2018-05-28] MEDS ORDERED: BUPIVACAINE 0.5 % 5 MG/1 ML MPF 30ML VIAL ONE (09:52)
[2018-05-28] MEDS ORDERED: CEFAZOLIN 250 MG/ML 1 GM VIAL ONE (09:52)
[2018-05-28] MEDS ORDERED: ONDANSETRON INJ 2 MG/ML 2 ML VIAL ONE (10:31)
[2018-05-28] MEDS ORDERED: GLYCOPYRROLATE 0.2 MG/ML VIAL ONE ×2 (10:31→11:03)
[2018-05-28] MEDS ORDERED: DEXAMETHASONE SOD INJ 4 MG/ML VIAL ONE (10:31)
[2018-05-28] MEDS ORDERED: NEOSTIGMINE METHYLSULFATE 5 MG/5 ML SYR ONE (10:31)
[2018-05-28] MEDS ORDERED: ACETAMINOPHEN 1,000 MG/100 ML VIAL IV ONE (11:02)
--- NOTE | 2018-05-28 11:02 | Operative Report ---
Post Operative Report Pre & Post Diagnosis Operation Date: 05/28/18 10:00 Pre-Op Diagnosis: Ventral Hernia Post-Op Diagnosis: Ventral Hernia same Procedure Operation Date: 05/28/18 10:00 Actual Procedures p Laparoscopic Ventral Hernia Repair with Mesh(Not Applicable) - Daniel Blum MD, FACS same Surgeon Daniel Blum MD, FACS Senior Data Warehouse Developer Laya edouard Estimated Blood Loss 5 Findings Consistent with Post-Op Diagnosis Specimens none Description of Procedure see dictated note I attest to the content of the Intraoperative Record and any orders documented therein. Any exceptions are noted below.
[2018-05-28] MEDS ORDERED: ATROPINE SO4 1 MG/ML 1ML VIAL ONE (11:03)
[2018-05-28] MEDS ORDERED: PROMETHAZINE HCL 12.5 MG in SODIUM CHLORIDE 0.9% 50 ML IV PRN (11:06)
[2018-05-28] MEDS ORDERED: HYDROmorphone INJ 0.5 MG/0.5 ML SYR IV PRN (11:06)
[2018-05-28] MEDS ORDERED: HYDROCODONE/ACETAMOPHEN 5/325MG TAB PO PRN ×2 (11:06)
[2018-05-28] MEDS ORDERED: ACETAMINOPHEN 1000 MG/100 ML IV IV ONE (11:24)
[2018-05-28] MEDS ORDERED: MEPERIDINE HCL 25 MG/ML CARP ONE (11:40)
[2018-05-28] MEDS ORDERED: MEPERIDINE HCL 25 MG/ML CARP IV PRN (11:44)
--- NOTE | 2018-05-28 12:48 | Operative Report ---
DATE OF OPERATION: 05/28/2018 NAME OF OPERATION: Laparoscopic ventral hernia repair with mesh. PREOPERATIVE DIAGNOSIS: Ventral hernia. POSTOPERATIVE DIAGNOSIS: Ventral hernia. STAFF SURGEON: Daniel Blum MD FIELD ARTILLERY TARGETING TECHNICIAN: Zahira Jackson PA-C ANESTHESIA: General. DESCRIPTION OF PROCEDURE: The patient was brought in the operating room and placed on the operating table in supine position. His abdomen was prepped and draped in usual fashion. Pneumatic stockings, orogastric tube were placed. Using 0.5% plain Marcaine, all incisions were anesthetized. An incision was made just in the left upper quadrant carrying dissection down to the fascia, placing a Veress needle producing pneumoperitoneum. An 11 mm port was placed at this level. Then under visualization, four 5 mm ports were placed, 2 in the left, 2 in the right. The patient did have a ventral hernia near the umbilicus with a very small defect above totalling approximately 4 cm. It did appear that it was containing small bowel which had spontaneously reduced. He has some fatty tissue around the area which was mobilized using both blunt and sharp dissection to expose the fascia. A 12.5 cm round Surgimesh was obtained, placed into the abdomen. The Surgimesh was brought up to the abdominal wall through a stab incision with the suture with the polypropylene mesh toward the fascia and the silicone toward the bowel. It was then tacked in 2 rows, outer and inner using the absorbable tacker. All ports were then removed. The pneumoperitoneum reduced. The left upper quadrant fascia closed using interrupted 0 Vicryl suture and all incisions closed using interrupted 5-0 Prolene. The one left 5 mm port site closed using 4-0 nylon. Dressings applied and the patient transferred to recovery in stable condition. My accounting manager assistant controller helped with prepping, draping, repair of the hernias and closure of the wound. I attest to the content of the Intraoperative Record and any orders documented therein. Any exception s are noted below.
[2018-05-28] MEDS ORDERED: SODIUM CHLORIDE 0.9% 1000ML 1,000 ML IV SCH (13:00)
--- NOTE | 2018-05-28 13:11 | Anesthesiology Progress Note ---
Date of Service May 28, 2018 Anesthesia Post Procedure Vital Signs Vital Signs: Temp Pulse Pulse Resp BP BP Pulse Ox 05/28/18 12:53 64 16 158/79 H 93 05/28/18 12:00 36.5 C 54 L 16 152/49 H 96 05/28/18 11:50 59 L 17 159/60 H 97 05/28/18 11:40 61 18 172/65 H 98 05/28/18 11:30 59 L 18 162/75 H 98 05/28/18 11:20 76 18 205/93 H 98 05/28/18 11:14 36.7 C 87 18 194/100 H 100 05/28/18 08:55 36.8 C 53 L 20 182/77 H 97 Pain Intensity Abdomen: Pain Intensity: 2 Notes Mental Status: alert / awake / arousable Patient Amnestic to Procedure: Yes Nausea / Vomiting: adequately controlled Pain: adequately controlled Airway Patency, RR, SpO2: stable & adequate BP & HR: stable & adequate Hydration State: stable & adequate Anesthetic Complications: no major complications apparent
--- NOTE | 2018-05-28 13:32 | Consultation ---
Date of Consultation May 28, 2018 Assessment & Plan (1) S/P hernia repair: Procedure well tolerated. Patient is doing well -Pain/nausea control, bowel regimen and activity instruction per primary team (2) Hypertension: Blood pressure mildly elevated at present, 152/83. Has ranged 152-205/49- 100 this hospital stay. -Pain control per primary team -Continue Lisinopril 20mg po daily -Hydralazine 5mg IV q 4 hours PRN SBP > 180mmHg -Continue to monitor (3) Hyperlipidemia: Chronic. -Continue Lipitor 80mg po daily -Home ASA to be continued at discretion of primary surgical team (4) Sleep apnea: CPAP qHS. Patient has his own which he may use (5) Seasonal allergies: -Continue Flonase, Zyrtec and Azelastine spray Thank you for this consult. Please do not hesitate to call if you have additional questions or concerns. History of Present Illness Reason for Consultation: Medical management Attending Physician: Daniel Blum MD, [facility] History of Present Illness Mr. Sierra is a pleasant 72yo C male with history of HTN, HLP, KASEY on CPAP qHS. He had laparoscopic ventral hernia repair with mesh performed by Dr. Blum today. Procedure was well tolerated. No complications identified. Patient states that pain is well controlled at present. He denies nausea. He tolerated lunch without difficulty. No gas or BM yet. Patient is eager to get out of bed an walk. Allergies Allergy/AdvReac Type Severity Reaction Status Date / Time No Known Allergies Allergy Verified 05/28/18 09:09 Home Medications Home Medications Medication Instructions Recorded Confirmed Type Azelastine Hc Nasal Solution 2 spray DAILY 05/18/18 05/28/18 History aspirin [Aspir-81] 81 mg PO DAILY 05/18/18 05/28/18 History atorvastatin 80 mg PO QAM 05/18/18 05/28/18 History cetirizine [Zyrtec] 1 tab PO HS 05/18/18 05/28/18 History fluticasone [Flonase Allergy 2 spray INTRANASAL BID 05/18/18 05/28/18 History Relief] lisinopril 20 mg PO QAM 05/18/18 05/28/18 History Patient History Medical History Hyperlipidemia Hypertension Cardiac murmur Mild MR seen on echo done for murmur 07/17/17 Sleep apnea CPAP Seasonal allergies History of skin cancer History of fainting NOV 2017 "BLACK OUT FOR SPLIT SECOND" - had OP eval by neurology, ruled vasovagal, no additional w/u needed. Surgical History History of hernia repair X2 History of arthroscopy of right knee History of colonoscopy Family History Father Family history of leukemia Social History Current Living Situation: Spouse Other Information That Helps Us Care for You: No Feels Safe at Home: Yes Smoking Status: Current some day smoker Tobacco Type: cigars Do You Dip or Chew Tobacco: No (HX OF) Hx Alcohol Use: Yes Alcohol type: beer Alcohol Intake Frequency: 0-2 drinks per day Hx Substance Use: No Beliefs That Will Affect Care: None Preferred Language: Trinidadian Communication Ability: Effective Grade School Teacher Required: No Review of Systems General: patient denies fevers/chills/sweats/malaise/weight loss or weight gain Skin: patient denies rashes/lesions HEENT: patient denies headache/visual changes/hearing changes/sore throat/ dysphagia/odynophagia/neck pain Heart: patient denies chest pain/palpitations/syncope/orthopnea Lungs: patient denies cough/wheezing/shortness of breath Abd: patient denies abdominal pain/nausea/vomiting/diarrhea/constipation/melena /hematochezia : patient denies hematuria/dysuria/frequency/urgency Heme: patient denies easy bleeding/bruising Endo: patient denies polyuria/polydipsia Physical Exam 2 Vital Signs (Past 24 Hours): Last Vital Signs Temp 36.5 C 05/28/18 12:00 Pulse 64 05/28/18 13:19 Resp 18 05/28/18 13:19 BP 152/83 H 05/28/18 13:19 Pulse Ox 93 05/28/18 13:19 Physical Exam: General: patient resting comfortably, NAD, non-toxic in appearance, AA&O x 4, eating lunch Skin: warm, dry, no rashes or lesions, abdominal dressings c/d/i HEENT: NC/AT, PERRL, EOMI, anicteric sclera, conjunctiva without injection, external ear normal to inspection and nontender, nares patent, moist mucus membranes, dentition intact, no oropharyngeal lesions, neck supple, trachea midline, no LAD, no thyromegaly, no JVD Heart: +S1/S2, regular, no m/r/g Lungs: equal air entry bilaterally, no rales/rhonchi/wheezes Abd: +BS, soft, NT/ND, no masses/organomegaly/ascites Ext: warm, 2+ pulses in UE/LE bilaterally, no clubbing/cyanosis or edema, SCDs in place Neuro: nonfocal, patient AA&O x 4, speech intact, no facial droop, moving all extremities on command with equal strength 08/05 _ (1) Hypertension Hypertension type: essential hypertension Qualified Code(s): I10 - Essential (primary) hypertension (2) Hyperlipidemia Hyperlipidemia type: unspecified Qualified Code(s): E78.5 - Hyperlipidemia, unspecified (3) Sleep apnea Sleep apnea type: obstructive Qualified Code(s): G47.33 - Obstructive sleep apnea (adult) (pediatric)
[2018-05-28] MEDS ORDERED: HydrALAZINE HCL 20 MG/ML VIAL IV PRN (13:41)
[2018-05-28] MEDS: CEFAZOLIN 1000MG 1,000 MG/7.5 ML SYR IV SCH (18:05)
[2018-05-28] MEDS: DOCUSATE SODIUM/SENNA 50/8.6MG TAB PO SCH (20:54)
[2018-05-28] MEDS: MAGNESIUM HYDROXIDE SUSP 30 ML UDC PO SCH (20:55)
[2018-05-28] MEDS: FLUTICASONE PROPIONATE NA SPR 16 GM BTL SCH (20:59)
[2018-05-29] MEDS: CEFAZOLIN 1000MG 1,000 MG/7.5 ML SYR IV SCH ×2 (01:25→10:36)
[2018-05-29] MEDS ORDERED: ACETAMINOPHEN 325 MG TAB PO PRN (06:09)
[2018-05-29 06:21] LABS: Albumin Level 3.3 gm/dl (3.4-5.0); BUN Creatinine Ratio 17.3 (10-20); Calcium 8.3 mg/dl (8.5-10.1); Creatinine Clr Calc Pharmacy 73.5 ml/min; Est GFR (African American) 91.8; Est GFR (Non-African American) 79.2; Magnesium 2.5 mg/dl (1.8-2.4)
[2018-05-29 06:24] LABS: Bilirubin,Total 0.9 mg/dl (0.2-1); Globulin 3.2 gm/dl (2.5-4.0); Phosphorus 3.8 mg/dl (2.5-4.9); Total Protein 6.5 gm/dl (6.4-8.2)
--- NOTE | 2018-05-29 07:57 | Anesthesiology Progress Note ---
Date of Service May 29, 2018 Anesthesia Post Procedure Vital Signs Vital Signs: Temp Pulse Pulse Pulse Resp BP BP 05/29/18 07:40 36.4 C L 68 16 184/93 H 05/29/18 03:27 36.7 C 77 16 131/72 05/28/18 23:39 36.7 C 78 16 156/89 H 05/28/18 15:57 36.6 C 72 18 168/91 H 05/28/18 14:17 36.6 C 18 163/90 H 05/28/18 13:19 64 18 152/83 H 05/28/18 12:53 64 16 158/79 H 05/28/18 12:00 36.5 C 54 L 16 152/49 H 05/28/18 11:50 59 L 17 159/60 H 05/28/18 11:40 61 18 172/65 H 05/28/18 11:30 59 L 18 162/75 H 05/28/18 11:20 76 18 205/93 H 05/28/18 11:14 36.7 C 87 18 194/100 H 05/28/18 08:55 36.8 C 53 L 20 182/77 H Pulse Ox 05/29/18 07:40 95 05/29/18 03:27 92 05/28/18 23:39 93 05/28/18 15:57 93 05/28/18 14:17 91 05/28/18 13:19 93 05/28/18 12:53 93 05/28/18 12:00 96 05/28/18 11:50 97 05/28/18 11:40 98 05/28/18 11:30 98 05/28/18 11:20 98 05/28/18 11:14 100 05/28/18 08:55 97 Pain Intensity Abdomen: Pain Intensity: 4 (with movement otherwise 0) Notes Mental Status: alert / awake / arousable Patient Amnestic to Procedure: Yes Nausea / Vomiting: adequately controlled Pain: adequately controlled Airway Patency, RR, SpO2: stable & adequate BP & HR: stable & adequate Hydration State: stable & adequate Anesthetic Complications: no major complications apparent
[2018-05-29] MEDS ORDERED: LISINOPRIL 20 MG TAB PO SCH (09:00)
[2018-05-29] MEDS ORDERED: CETIRIZINE HCL 10 MG TABLET PO SCH ×2 (09:00→21:00)
[2018-05-29] MEDS ORDERED: ATORVASTATIN 40 MG TAB PO SCH (09:00)
[2018-05-29] MEDS: FLUTICASONE PROPIONATE NA SPR 16 GM BTL SCH (09:09)
[2018-05-29] MEDS: DOCUSATE SODIUM/SENNA 50/8.6MG TAB PO SCH (09:11)
[2018-05-29] MEDS ORDERED: Nursing to Pharmacy Communication ONE (09:19)
[2018-05-29] MEDS: MAGNESIUM HYDROXIDE SUSP 30 ML UDC PO SCH (09:43)
--- NOTE | 2018-05-29 10:12 | Hospitalist Progress Note ---
Date of Service May 29, 2018 Assessment & Plan (1) S/P hernia repair: Procedure well tolerated. Patient is doing well -Pain/nausea control, bowel regimen and activity instruction per primary team -Feels bloated and has mild distension as above, encouraged ambulation and bowel regimen for BM. (2) Hypertension: Blood pressure mildly elevated at present, 152/83. Has ranged 152-205/49-100 this hospital stay. -- pt reports feeling anxious due to being in the hospital. No med changes at this time. -Pain control per primary team -Continue Lisinopril 20mg po daily -Hydralazine 5mg IV q 4 hours PRN SBP > 180mmHg -Continue to monitor (3) Hyperlipidemia: - Chronic. - Continue Lipitor 80mg po daily - Home ASA to be continued at discretion of primary surgical team (4) Sleep apnea: - CPAP qHS. Patient has his own which he may use (5) Seasonal allergies: - Continue Flonase, Zyrtec and Azelastine spray It was a pleasure to see Mr. Sierra. Please do not hesitate to call if you have additional questions or concerns. Supervising Physician Co-Signing Physician Notes During my face to face encounter with the patient, I examined him, interrogated him. All of his questions were answered. I reviewed the content of the above note and agree with it. Subjective The patient was seen and examined this morning. Pt states he is doing well. He is still having some abdominal bloating and distension. + flatus but no BM yet. He has been tolerating a diet without difficulty. Pt has mild pain with abdominal palpation. He has been up and ambulating without difficulty. ROS Constitutional: No fever, sweats or chills Eyes: No diplopia, no worsening or blurred vision ENT: normal hearing, no trouble swallowing Respiratory: No cough, sputum, dyspnea at rest or on exertion Cardiovascular: No chest pain, tightness or palpitations Abdomen: No pain, nausea, vomiting, diarrhea or constipation Musculoskeletal: No joint pain, calf pain, swelling Neurologic: No weakness, numbness/tingling, or balance problems Psychiatric: No anxiety or depression Skin: No rash or itch Physical Exam Vital Signs (Past 24 Hours): Last Vital Signs Temp 36.4 C L 05/29/18 07:40 Pulse 68 05/29/18 07:40 Resp 16 05/29/18 07:40 BP 184/93 H 05/29/18 07:40 Pulse Ox 95 05/29/18 07:40 Physical Exam: General: awake, alert, no apparent distress Head: Normocephalic, atraumatic ENT: PERRL, EOMI, no pharyngeal exudate, mucous membranes moist Chest: Clear to auscultation, on room air, no adventitious breath sounds Cardiac: Regular rate and rhythm, no murmur, no JVD, normal peripheral pulses, good capillary refill Abdominal: NABS x 4 quadrants, +mild distension, +bloating, +mild tenderness to palpation. no rebound, guarding or tenderness Extremities: Normal inspection, no peripheral edema or erythema, calfs nontender to palpation Psych: Normal mood and affect Neuro: AAO x 3, strength intact bilaterally and related 5/5, no motor deficits, speech is clear, no peripheral sensory deficits (1) Sleep apnea Sleep apnea type: obstructive Qualified Code(s): G47.33 - Obstructive sleep apnea (adult) (pediatric) (2) Hyperlipidemia Hyperlipidemia type: unspecified Qualified Code(s): E78.5 - Hyperlipidemia, unspecified (3) Hypertension Hypertension type: essential hypertension Qualified Code(s): I10 - Essential (primary) hypertension
--- NOTE | 2018-05-29 11:09 | Urology Consultation ---
Date of Consultation May 29, 2018 Assessment & Plan (1) Incomplete bladder emptying: Very pleasant 72yo M POD #1 s/p Laparoscopic ventral hernia repair with mesh with associated post operative retention Appears to be progressing well from surgical standpoint. Encouraged to continue to ambulate and stay well hydrated. Most recent PVR ~220cc, patient states it much better. Pt does not require indwelling catheter or CIC teaching at this time. Will add tamsulosin to post operative course, side effects reviewed. Plan for close post operative follow-up with PVR, to be arranged by our outpatient office. Okay to d/c home from perspective. Thank you for the consultation and allowing us to participate in the care of Mr. Sierra. Please see additional comments per my attending physician as indicated. History of Present Illness Reason for Consultation: post op UR Requesting Physician: Dr. Blum Attending Physician: Daniel Blum MD, [facility] History of Present Illness 72yo M with PMHx HTN, HLD, KASEY; POD #1 s/p laparoscopic ventral hernia repair with mesh performed by Dr. Blum. We were asked to see patient for post operative urinary retention. Overnight, he required straight cath at least two times for large volume UR ( > 500cc). Pt reports he experienced post op UR with same symptoms ~[address] [facility], with his first hernia repair surgery. He required straight cath x few days then spontaneously resolved. Has never required formal Urology evaluation. Denies use of BPH medications in the past. PCP checks ABIDA/PSA annually, stable per patient report. Reports a slow urinary stream at baseline, some post void dribbling. Nocturia 1-2 Daytime frequency 3-4h Minimal baseline urgency. Pt is alert and comfortable upon exam, also at bedside. Allergies Allergy/AdvReac Type Severity Reaction Status Date / Time No Known Allergies Allergy Verified 05/28/18 09:09 Home Medications Home Medications Medication Instructions Recorded Confirmed Type Azelastine Hc Nasal Solution 2 spray DAILY 05/18/18 05/28/18 History aspirin [Aspir-81] 81 mg PO DAILY 05/18/18 05/28/18 History atorvastatin 80 mg PO QAM 05/18/18 05/28/18 History cetirizine [Zyrtec] 1 tab PO HS 05/18/18 05/28/18 History fluticasone [Flonase Allergy 2 spray INTRANASAL BID 05/18/18 05/28/18 History Relief] lisinopril 20 mg PO QAM 05/18/18 05/28/18 History cephalexin [Keflex] 500 mg PO TID #15 cap 05/28/18 Rx hydrocodone-acetaminophen [Clyo] 1 - 2 tab PO Q6H #30 tab 05/28/18 Rx tamsulosin 0.4 mg PO HS #30 cap 05/29/18 Rx Patient History Medical History Hyperlipidemia Hypertension Cardiac murmur Mild MR seen on echo done for murmur 07/17/17 Sleep apnea CPAP Seasonal allergies History of skin cancer History of fainting NOV 2017 "BLACK OUT FOR SPLIT SECOND" - had OP eval by neurology, ruled vasovagal, no additional w/u needed. 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 Review of Systems Constitutional: no fever and no chills Eyes: no problem reported Ear, Nose, Mouth, Throat: no ear pain Respiratory: no cough Cardiovascular: no chest pain Gastrointestinal: no nausea and no vomiting incisional pain, mild bloating Genitourinary (Male): + urinary hesitancy and + post-void dribbling; no dysuria , no decreased urination, no hematuria and no flank pain Musculoskeletal: no back pain Integumentary: no acne and no rash abdominal incision dressing dry, intact Neurologic: no problem reported Psychiatric: no behavioral changes Endocrine: no fatigue and no polydipsia Hematologic / Lymphatic: no easy bleeding Allergy / Immunological: no problem reported Physical Exam 2 Vital Signs (Past 24 Hours): Last Vital Signs Temp 36.4 C L 05/29/18 07:40 Pulse 68 05/29/18 07:40 Resp 16 05/29/18 07:40 BP 184/93 H 05/29/18 07:40 Pulse Ox 95 05/29/18 07:40 Constitutional: no acute distress Eyes: no nystagmus ENMT: Ears: no hearing impairment Neck: trachea midline Respiratory: no respiratory distress, does not use accessory muscles and no cough Cardiovascular: Vessels: no JVD Extremities: no calf tenderness and no edema Gastrointestinal (Abdomen): Inspection/Auscultation: abdomen not distended and no abdominal edema Percussion/Palpation: + abdomen tender (mildly around incisions as expected) and abdomen soft; no guarding Musculoskeletal: Head/Neck/Chest: normocephalic Skin: no rashes, warm and dry Neurologic: awake; not confused and not obtunded Psychiatric: Orientation: alert and oriented x 3 Apperance: appropriately dressed and appropriately groomed Eye Contact: good eye contact Genitourinary: bladder nondistended, nontender on palpation Results & Data Laboratory Results Laboratory Results - last 48 hr 05/29/18 05:27 Sodium 138 Potassium 4.0 Chloride 105 Carbon Dioxide 26 Anion Gap 7.0 BUN 17 Creatinine 0.96 Est Cr Clr Drug Dosing 73.5 Est GFR ( Amer) 91.8 Est GFR (Non-Af Amer) 79.2 BUN/Creatinine Ratio 17.3 Glucose 120 H Calcium 8.3 L Phosphorus 3.8 Magnesium 2.5 H Total Bilirubin 0.9 AST 15 ALT 26 Alkaline Phosphatase 56 Total Protein 6.5 Albumin 3.3 L Globulin 3.2 Albumin/Globulin Ratio 1.0
--- NOTE | 2018-05-30 10:55 | Discharge Summary ---
Date of Service June 02, 2018 Discharge Data Consultations 05/22/18 14:42 Consult Hospitalist Routine 05/29/18 06:07 Consult Urology Routine Procedures Performed Operation Date: 05/28/18 10:00 Actual Procedures p Laparoscopic Ventral Hernia Repair with Mesh(Not Applicable) - Daniel Blum MD, [facility] Hospital Course (1) S/P hernia repair: see dictation
--- NOTE | 2018-05-31 12:27 | Discharge Summary ---
PRINCIPAL DIAGNOSES: Ventral hernia, urinary retention. PROCEDURES: The patient underwent laparoscopic ventral hernia repair. HISTORY OF PRESENT ILLNESS: The patient is a 72-year-old male with enlarging ventral hernia for definitive repair. HOSPITAL COURSE: The patient was brought into the hospital on 05/28/2018 where he was taken to the operating room and underwent laparoscopic ventral hernia repair which he tolerated well. He did have problems postoperatively with urinary retention, requiring straight catheterization, but this did somewhat improve over 24 hours and he was also seen by the urology team who decided to follow him as an outpatient. He was discharged home on 05/29/2018 to be followed in the surgical office and urology office within 1-2 weeks.
== END 2018-05-29 16:28 | disposition home or self-care (01) ==
LOC: 3N 08:24 → ASU 08:24

== ENCOUNTER 2020-11-10 07:54 | Observation (INO) ==
--- NOTE | 2020-10-06 16:02 | PAT Medication Instructions ---
Medication Instructions Date of Service October 06, 2020 Home Medications Medication Instructions Recorded atorvastatin 80 mg tablet 80 mg PO QAM #90 tab 10/22/19 lisinopril 40 mg tablet 40 mg PO QAM #90 tab 12/12/19 sildenafil 100 mg tablet 100 mg PO DAILY PRN #36 tab 04/21/20 Zyrtec 1 tab PO HS PRN atorvastatin 80 mg tablet 80 mg PO QAM lisinopril 40 mg tablet 40 mg PO QAM hydrochlorothiazide 25 mg PO QAM aspirin 81 mg PO QAM montelukast 10 mg PO QAM sildenafil 100 mg tablet 100 mg PO DAILY PRN famotidine 20 mg tablet 20 mg PO Q2D azelastine 2 spray INTNAS BID PRN fluticasone propionate [Flonase Allergy Relief] 2 spray INTRANASAL BID PRN ibuprofen 800 mg PO BID PRN Continue as directed famotidine 20 mg tablet 20 mg PO Q2D ASK your surgeon for instructions ibuprofen 800 mg PO BID PRN STOP taking 24 hours before surgery sildenafil 100 mg tablet 100 mg PO DAILY PRN DO NOT take the morning of surgery lisinopril 40 mg tablet 40 mg PO QAM hydrochlorothiazide 25 mg PO QAM montelukast 10 mg PO QAM Take morning of surgery With a small sip of water, OTHERWISE NOTHING TO EAT OR DRINK AFTER MIDNIGHT: atorvastatin 80 mg tablet 80 mg PO QAM aspirin 81 mg PO QAM (unless surgeon directs otherwise) azelastine 2 spray INTNAS BID PRN (if needed) fluticasone propionate [Flonase Allergy Relief] 2 spray INTRANASAL BID PRN (if needed) Take evening before surgery Zyrtec 1 tab PO HS PRN (if needed) azelastine 2 spray INTNAS BID PRN (if needed) fluticasone propionate [Flonase Allergy Relief] 2 spray INTRANASAL BID PRN (if needed) Other Notes If you have any questions please call us at [phone] or [phone] or [phone] or [phone]
--- NOTE | 2020-10-07 08:41 | Anesthesiology Consultation ---
Date of Service October 07, 2020 Assessment & Plan (1) Encounter for pre-operative examination: Chart Review Chart Review: Acceptable Risk for Surgery (pending PCP clearance and preop Covid testing results ) and Patient seen in Pre Admission Testing Awaiting surgeon ordered PCP clearance; surgeon's office determining if cardio clearance wanted by Dr. Yee Per PAT appt on 10/07/20, patient denies any recent travel. No longer wears PPE. Pt vaccinated for Covid. No known Covid positive contacts or Covid related symptoms. No known Covid infection in the past 90 days. Preop Covid testing scheduled 11/06/20= will await results. Educated on importance of self quarantining, social distancing and wearing mask in public both for the patient after Covid testing done Teaching & Discussion Pre-Anesthesia Teaching/Discussion Notes: Instructed NPO after midnight before surgery,except medications with 15 cc of water. Medication instructions provided according to the PAT guidelines. History Surgery Operation Date: 11/10/20 10:15 Proposed Procedures p Right Total Knee Arthroplasty - Sarabjit Yee DO Height/Weight Height: 5 ft 6 in Weight: 89.2 kg Allergies Allergy/AdvReac Type Severity Reaction Status Date / Time No Known Drug Allergies Allergy Verified 10/06/20 12:23 Medications Home Medications Medication Instructions Recorded Confirmed Last Taken Zyrtec 1 tab PO HS PRN 05/18/18 10/06/20 04/19/20 atorvastatin 80 mg tablet 80 mg PO QAM #90 tab 10/22/19 10/06/20 04/20/20 lisinopril 40 mg tablet 40 mg PO QAM #90 tab 12/12/19 10/06/20 04/20/20 hydrochlorothiazide 25 mg PO QAM 01/17/20 10/06/20 04/20/20 aspirin 81 mg PO QAM 04/09/20 10/06/20 04/19/20 montelukast 10 mg PO QAM 04/09/20 10/06/20 04/19/20 sildenafil 100 mg tablet 100 mg PO DAILY PRN #36 tab 04/21/20 10/06/20 Unknown famotidine 20 mg tablet 20 mg PO Q2D tab 05/13/20 10/06/20 Unknown azelastine 2 spray INTNAS BID PRN 10/06/20 10/06/20 Unknown fluticasone propionate [Flonase 2 spray INTRANASAL BID PRN 10/06/20 10/06/20 Unknown Allergy Relief] ibuprofen 800 mg PO BID PRN 10/06/20 10/06/20 Unknown Past Medical History Medical History Cardiac murmur Mild to moderate AR on 05/20/20 ECHO Follows only with cardio PRN GERD (gastroesophageal reflux disease) Well controlled and stable Hearing loss No hearing aids History of anesthesia reaction Lap hernia repair 05/2018 had urinary retention- olson catheter placed- no issues with other surgeries History of fainting NOV 2017- near syncope - had OP eval by neurology and cardiology, ruled vasovagal, no additional w/u needed-NO RECENT ISSUES History of skin cancer S/p removal Hyperlipidemia Hypertension Restless leg syndrome Mild/occasionally Sleep apnea cpap Exercise / Class Metabolic Activity II 4-5 Yardwork/Stairs/Walk up hill (one flight of stairs - no chest pain or SOB ) Past Family History Family History Father Leukemia Grandfather (Maternal) Myocardial infarction Mother Hearing loss Other No family history of adverse response to anesthesia No family history of bleeding disorder Denies family history of Ovarian cancer Prostate cancer Breast cancer Colorectal cancer Past Surgical History Surgical History History of arthroscopy of right knee History of cataract surgery bilateral History of colonoscopy with polypectomy History of hernia repair X2 S/P laparoscopic hernia repair ventral hernia repair with mesh Past Anesthesia History No Hx of Anesthesia Complications (with exception to one episode of urinary retention with hernia surgery in 2018- no issues with other surgeries ) and No Family Hx of Anesthesia Complications History of PONV No Hx of PONV and No Hx of Motion Sickness Social History Smoking Status: Light tobacco smoker tobacco type: cigars Smoking cigarettes per day: 1 CIGAR A WEEK Do You Dip or Chew Tobacco: No Hx Alcohol Use: Yes Alcohol type: beer, wine and hard liquor alcohol intake frequency: a few times a week Hx Substance Use: No substance use type: does not use Review of Systems Patient denies chest pain, shortness of breath, dyspnea on exertion, cough, wheezing, palpitations. No hx of seizures, stroke, IN. No hx of blood clots or blood transfusions Physical Exam Vital Signs VITALS BP 165/71 (usually better controlled per patient) P 53 TEMP 98.1 SP02 98% RESP 16 Constitutional no acute distress ENMT Mouth: no TMJ clicking Thyromental Distance: > or= 3.5 Finger Breadths (3.5) Mallampati Class: III Capped teeth- including front bottom and top Missing molar Neck + thick neck (mild); neck extension not limited Respiratory normal respiratory effort; no respiratory distress Auscultation: lungs clear to auscultation bilaterally; no wheezes Cardiovascular Rate/Rhythm: regular rate and regular rhythm Heart Sounds: + murmur (I/ murmur ) Vessels: no carotid bruit Musculoskeletal Spine: no pain with cervical ROM Extremities: extremities normal to inspection Skin Right eye bruising (had injury to face from sunglasses) Psychiatric Orientation: alert Lab Results Anesthesia Preop Results Results Anesthesia Widget: WBC 5.46 K/uL (4.8-10.8) 10/07/20 Hgb 14.1 g/dL (14.0-18.0) 10/07/20 Hct 42.4 % (42-52) 10/07/20 Plt 186 K/uL (130-400) 10/07/20 Na 138 mmol/L (136-145) 10/07/20 K 4.0 mmol/L (3.5-5.1) 10/07/20 Cl 104 mmol/L (98-107) 10/07/20 CO2 28 mmol/L (21-32) 10/07/20 BUN 18 mg/dl (7-18) 10/07/20 Creat 0.92 mg/dl (0.6-1.4) 10/07/20 Glucose Level 84 mg/dl (70-99) 10/07/20 PT 10.4 Seconds (9.0-12.0) 10/07/20 PTT 28.2 Seconds (21.0-31.0) 10/07/20 INR 1.0 (0.9-1.1) 10/07/20 HA1c 5.7 % (4.5-5.6) H 10/07/20 Urine Color Yellow 10/07/20 Urine Appearance Clear (Clear) 10/07/20 Urine pH 6.5 (4.5-7.5) 10/07/20 Urine Specific [place] 1.009 (1.000-1.030) 10/07/20 Urine Protein Negative (Negative) 10/07/20 Urine Glucose (UA) Negative (Negative) 10/07/20 Urine Ketones Negative (Negative) 10/07/20 Urine Blood Negative (Negative) 10/07/20 Urine Nitrite Negative (Negative) 10/07/20 Urine Bilirubin Negative (Negative) 10/07/20 Urine Urobilinogen Negative (Negative) 10/07/20 Urine Leukocyte Esterase Negative (Negative) 10/07/20 Blood Type O Positive 10/07/20 Antibody Screen NEGATIVE 10/07/20 Testing Electrocardiogram Date: 10/07/20 Findings: + SB @ (46bpm) Left axis deviation. Chest X-Ray Date: 10/07/20 Findings: + NAD Minimal atelectasis at the left base. No large infiltrates or consolidative lesions. Echocardiogram Date: 05/20/20 EF: 55-60% LV Function: normal RWMA: + none Other Findings: + LVH (mild/concentric) and + diastolic dysfunction (Grade II) Valvular Disease: + AI (mild to moderate ) Other Testing Carotid doppler 05/20/20= No hemodynamically significant stenosis seen within the carotid arteries. Antegrade flow is seen in the bilateral vertebral arteries.
--- NOTE | 2020-10-28 18:30 | History & Physical Report ---
Date of Service October 28, 2020 date of surgery: 11/10/20 Procedure: Right Total Knee Arthroplasty Assessment & Plan (1) Arthritis of right knee: Plan: he has failed conservative measures including prior knee scope, visco injection and cortisone injection. he would like to proceed with right total knee arthroplasty at [facility]. will place in ASA 81mg po bid x 1 month, will discuss w/ his daughter poss OPJ, will plan on HHPT. The risks and benefits have been discussed including, but not limited to, risk of infection, nerve injury, stiffness, loss of motion, failure to improve, etc. Reasonable outcomes and options of treatment were discussed. An explanation of appropriate alternatives to the procedure that may be advantageous were discussed and their risks and benefits, as well as the risks and benefits of not proceeding with treatment. I offered to answer any additional inquiries concerning the treatment involved. All the patient's questions were answered. The patient is agreeable, understanding of the treatment plan and alternatives, and wishes to proceed with the treatment plan. History of Present Illness Chief Complaint: Right knee pain Primary Care Provider: Philippe Smith MD Gene is a 75 year old male who complains of right knee pain, presents for pre-op evaluation prior to a right total knee replacement by Dr Yee at [facility]. he complains of pain, decreased range of motion, instability and stiffness in his right knee. Currently the patient states that the symptoms are moderate- severe and rated as 8/10. The pain is described as aching, sharp and throbbing. The symptoms are aggravated by ascending stairs, daily activities, first steps while awake walking. Prior NSAIDs include IBU, Aleve and mobic. He has been treated with previous cortisone and visco injections in the past without much relief. he previously underwent Right knee arthroscopy with partial medial meniscectomy Arthroscopic chondroplasty medial femoral condyle patellofemoral joint on 01/15/2020 Allergies Allergy/AdvReac Type Severity Reaction Status Date / Time No Known Drug Allergies Allergy Verified 10/27/20 09:01 Home Medications Medication Instructions Recorded Confirmed Type cetirizine 10 mg capsule (Zyrtec) 1 tab PO HS PRN 05/18/18 10/27/20 History lisinopril 40 mg tablet 40 mg PO QAM #90 tab 12/12/19 10/27/20 Rx aspirin 81 mg tablet,delayed 81 mg PO QAM 04/09/20 10/27/20 History release montelukast 10 mg tablet 10 mg PO QAM 04/09/20 10/27/20 History sildenafil 100 mg tablet 100 mg PO DAILY PRN #36 tab 04/21/20 10/27/20 Rx famotidine 20 mg tablet 20 mg PO Q2D tab 05/13/20 10/27/20 History azelastine 205.5 mcg (0.15 %) 2 spray INTNAS BID PRN 10/06/20 10/27/20 History nasal spray fluticasone propionate 50 2 spray INTRANASAL BID PRN 10/06/20 10/27/20 History mcg/actuation nasal spray,suspension (Flonase Allergy Relief) ibuprofen 800 mg tablet 800 mg PO BID PRN 10/06/20 10/27/20 History atorvastatin 80 mg tablet 80 mg PO QAM #90 tab 10/12/20 10/27/20 Rx hydrochlorothiazide 25 mg tablet 25 mg PO QAM #90 tab 10/22/20 10/27/20 Rx Past Med/Surg History Medical History Cardiac murmur Mild to moderate AR on 05/20/20 ECHO Follows only with cardio PRN GERD (gastroesophageal reflux disease) Well controlled and stable Hearing loss No hearing aids History of anesthesia reaction Lap hernia repair 05/2018 had urinary retention- olson catheter placed- no issues with other surgeries History of fainting NOV 2017- near syncope - had OP eval by neurology and cardiology, ruled vasovagal, no additional w/u needed-NO RECENT ISSUES History of skin cancer S/p removal Hyperlipidemia Hypertension Restless leg syndrome Mild/occasionally Sleep apnea cpap Surgical History History of arthroscopy of right knee History of cataract surgery bilateral History of colonoscopy with polypectomy History of hernia repair X2 S/P laparoscopic hernia repair ventral hernia repair with mesh Family History Father Leukemia Grandfather (Maternal) Myocardial infarction Mother Hearing loss Other No family history of adverse response to anesthesia No family history of bleeding disorder Denies family history of Ovarian cancer Prostate cancer Breast cancer Colorectal cancer Social History Smoking Status: Light tobacco smoker Cigarettes Per Day: 1 CIGAR A WEEK; Second Hand Exposure: Yes (Parents SMOKED); Hx Alcohol Use: Yes Alcohol type: beer, wine and hard liquor Hx Substance Use: No Preferred Language: Angolan Communication Ability: Effective Visual Impairment: No Limitations Hearing Ability: Normal 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 Beliefs That Will Affect Care: None marital status: Current Living Situation: Spouse current occupational status: retired Feels Safe at Home: Yes Physical Activity Frequency: 1-2 Times per Week Seatbelt Use: always Assistive Devices: Glasses Review of Systems Review of Systems: All systems reviewed & are unremarkable except as noted in HPI & below Constitutional: no fever, no chills and no sweats Respiratory: no cough and no dyspnea Cardiovascular: no chest pain, no dyspnea and no orthopnea Gastrointestinal: no abdominal pain, no nausea and no vomiting Musculoskeletal: as per Subjective / HPI Physical Exam Physical Exam: HT: 5ft 6in wt: 89.2kg Constitutional: WD/WN, vitals as above no acute distress Respiratory: normal respiratory effort, lungs clear to auscultation no respiratory distress, no labored breathing and does not use accessory muscles Cardiovascular: RRR, no murmur, no edema Gastrointestinal (Abdomen): normal bowel sounds, soft, nontender, no hepatosplenomegaly Musculoskeletal: Knee: + knee abnormal to inspection (Right Knee- ), + effusion (+1 effusion), + surgical incision (well healed portals), + limited ROM of knee (ROM 0/3/110), + knee ROM with crepitation, + joint line tenderness (medial joint line) and + David's sign positive; no deformity, no skin erythema, no ecchymosis, no valgus laxity, no varus laxity, anterior drawer test negative, Madelaine's sign negative and pivot shift test negative Results & Data Results & Data ([facility]) Diagnostic Findings Right Knee X-ray: Right knee series showing advanced degenerative changes to the right knee, narrowing of the medial compartment and patello-femoral joint with patellar spurring noted, findings showing joint space narrowing of the medial compartment and patello-femoral joint, osteophyte formation and subchondral sclerosis noted. overall varus alignment. no acute bony pathology noted.
[~2020-11-10 07:54] MED LIST changes: +ACETAMINOPHEN 500 MG TAB PO SCH; +BUPIVACAINE 0.5 % 5 MG/1 ML PF 10ML VIAL ONE; -CEFAZOLIN 2000MG 2,000 MG/15 ML SYR IV SCH; +CeleBREX 200 MG CAP PO SCH; +EPINEPHrine INJ 1 MG/ML AMP ONE; +FAMOTIDINE 20 MG TAB PO SCH; +GABAPENTIN 300 MG CAP PO SCH; -LR 15ML/HR IV SCH; +LR 500ML BOLUS, THEN 15ML/HR IV SCH; +METOCLOPRAMIDE HCL 10 MG TABLET PO SCH; +ROPIVACAINE 0.5% 5 MG/ML 30 ML VIAL ONE; +ROPIVACAINE 0.5% HCL/PF 150 MG, BUPIVACAINE 0.75% MPF 20 ML, EPINEPHrine 30MG/30ML (OR ... INSTIL SCH; +Scopolamine 1 MG TDSY TD SCH; +TRANEXAMIC ACID 1,000 MG **IV Intra-op IV SCH; +TRANEXAMIC ACID 1,000 MG **IV Pre-op IV SCH; +ceFAZolin 2000MG 2,000 MG/15 ML SYR IV SCH; +dexAMETHasone 4 MG TAB PO SCH
[2020-11-10] MEDS ORDERED: PROPOFOL IV EMULSION 10 MG/ML 20 ML VIAL IV ONE (08:11)
[2020-11-10] MEDS ORDERED: MIDAZOLAM HCL 1 MG/ML 2ML VIAL ONE (08:11)
[2020-11-10] MEDS ORDERED: fentaNYL citrate 100 MCG/2 ML VIAL ONE (08:11)
--- NOTE | 2020-11-10 09:15 | History & Physical Bridge Note ---
Date of Service November 10, 2020 History & Physical Bridge Note I have examined the patient, reviewed the History & Physical and in the interval since the performance of the History & Physical I have noted the following changes of clinical significance: no changes noted
[2020-11-10] MEDS ORDERED: ORTHO JOINT ANESTHETIC ONE (09:23)
[2020-11-10] MEDS ORDERED: ONDANSETRON INJ 2 MG/ML 2 ML VIAL IV PRN ×2 (10:04→13:45)
[2020-11-10] MEDS ORDERED: HYDROmorphone INJ 1 MG/ML SYRINGE IV PRN (10:04)
[2020-11-10] MEDS ORDERED: ePHEDrine sulfate 50 MG/ML AMP IV PRN (10:04)
[2020-11-10] MEDS ORDERED: fentaNYL citrate 100 MCG/2 ML VIAL IV PRN (10:04)
[2020-11-10] MEDS ORDERED: ATROPINE SULFATE 0.1 MG/ML 10ML SYR IV PRN (10:04)
--- NOTE | 2020-11-10 11:29 | Operative Report ---
Post Operative Report Pre & Post Diagnosis Operation Date: 11/10/20 10:10 Pre-Op Diagnosis: Right Knee Osteoarthritis Post-Op Diagnosis: Right Knee Osteoarthritis I identified the patient and participated in the time-out.: Yes Procedure Operation Date: 11/10/20 10:10 Actual Procedures p Right Total Knee Arthroplasty utilizing [employer] persona patient matched femur size 8 standard tibia E poly 13 medial constrained patella 31 keith- Sarabjit Yee DO Surgeon Sarabjit Yee DO Bead Filler Otoniel LEWIS Estimated Blood Loss 5 Findings Consistent with Post-Op Diagnosis Patient presents with varus alignment subchondral sclerosis marginal osteophytes varus alignment moderate to large effusion eburnated [id number] medial compartment Specimens Bone and cartilage Drains Medium bore Hemovac Anesthesia Type MAC Spinal Regional Complications none Disposition Accompanied Patient To Recovery: No Disposition: Recovery Room Indications Patient presents with severe end-stage DJD no response to conservative management occluding previous arthroscopy corticosteroid injection Visco supplementation relative rest activity modification the above intraoperative findings were noted Description of Procedure After proper prepping and draping of the Right lower extremity anterior midline incision was made over the region of the extensor extensor mechanism after meticulous hemostasis was obtained and maintained in subcutaneous tissues a medial parapatellar incision was made The patella was subluxed lateralward the medial lateral gutter were cleaned from any hypertrophic synovitis and scar tissue of the distal femoral block was placed and the distal femoral osteotomy cut was made subsequently the chamfers anterior and posterior osteotomy cuts were made utilizing the 4-in-1 block the tibia was subsequently subluxed anteriorward medial and ateral meniscal remnants were excised in their entirety remnants of the anterior and posterior cruciate ligaments were excised in their entirety excellent exposure of the proximal tibia was obtained the tibial osteotomy guide was placed on the proximal tibial osteotomy cut was made once again the knee was irrigated with copious amounts of sterile saline solution the patella was subsequently everted lateralward thickened scar tissue around the patella was removed the patella was subsequently cut utilizing a freehand technique and was drilled prepared for final preparation and placement of patella socially flexion-extension gaps were checked and the equal and symmetric trials were placed to the appropriate femoral and tibial trials with poly-spacer being placed for equal flexion and extension gaps and full range of motion inc luding extension to 0 and flexion to 140 the trial components after having been taken to recovery range of motion was subsequently removed meticulous hemostasis was obtained and maintained subsequently a knee block injection of joint cocktail including ropivacaine 0.5% 150 mg. Bupivacaine 0.5% epinephrine 1- 200,030 mL's toradol 30 mg dexamethasone 4 mg ketamine 10 mg clonidine 100 micrograms normal saline solution 30 mg was infiltrated into the soft tissues of the posterior knee medial lateral gutters and periosteal synovium special attention was paid to protect neurovascular structures at all times subsequently trial components having been removed the knee was irrigated with sterile saline solution. debris was removed the proximal tibia was subsequently prepared and was made ready for the placement of the tibial component tibial component was also cemented and tamped into position the femoral component was subsequently placed and cemented in the position the patellar component was subsequently cemented in position because hemostasis once again obtained and maintained wound having been thoroughly irrigated with debridement and debridement lavage was performed as well as a medial parapatellar incision closed with #1 Vicryl in interrupted fashion subcutaneous was closed with #2 Vicryl skin was closed with skin clips. PA-C was necessary for prepping and drapping as well as wound closure of deep fascia Sub cutaneous tissue and skin and was necessary for the case. A sterile compressive dressing was placed patient was taken to recovery in stable condition of report dictated by Joselito I attest to the content of the Intraoperative Record and any orders documented therein. Any exceptions are noted below. I attest to the content of the Intraoperative Record and any orders documented therein. Any exceptions are noted below.
--- NOTE | 2020-11-10 12:25 | XRay Report ---
RIGHT KNEE 2 VIEWS History: Right total knee arthroplasty. Degenerative arthritis. Postop. FINDINGS: The patient is status post a right total knee arthroplasty. The hardware is intact. No frac ture or dislocation. Surgical drains are in place. IMPRESSION: Right total knee arthroplasty. No evidence for hardware complication. ACT 112: Negative or not required by law.. Electronically signed by: Adama Abad M.D. 11/10/2020 12:24 PM
--- NOTE | 2020-11-10 13:21 | Anesthesiology Progress Note ---
Date of Service November 10, 2020 Anesthesia Post Procedure Vital Signs Vital Signs: Temp Pulse Pulse Resp BP BP Pulse Ox 11/10/20 13:15 46 L 18 114/58 L 96 11/10/20 13:05 44 L 18 107/55 L 96 11/10/20 12:55 36.2 C L 47 L 18 108/54 L 97 11/10/20 12:45 47 L 18 110/50 L 97 11/10/20 12:35 47 L 22 111/52 L 96 11/10/20 12:25 45 L 14 105/50 L 95 11/10/20 12:15 55 L 15 103/52 L 94 11/10/20 12:09 36.4 C L 71 15 111/62 96 11/10/20 09:32 36.4 C L 51 L 18 155/65 H 98 11/10/20 08:27 36.6 C 57 L 18 177/72 H 98 Transfer of Care Handoff Completed per policy Notes Mental Status: alert / awake / arousable and participated in evaluation Patient Amnestic to Procedure: Yes Nausea / Vomiting: adequately controlled Pain: adequately controlled Airway Patency, RR, SpO2: stable & adequate BP & HR: stable & adequate Hydration State: stable & adequate Neuraxial Anesthesia: was administered and sensory block is resolving Anesthetic Complications: no major complications apparent and Pt Satisfied with anesthetic care
[2020-11-10] MEDS ORDERED: MAGNESIUM HYDROXIDE SUSP 30 ML UDC PO PRN (13:45)
[2020-11-10] MEDS ORDERED: FLUTICASONE PROPIONATE NA SPR 16 GM BTL PRN (13:45)
[2020-11-10] MEDS ORDERED: NALOXONE HCL 0.4 MG/1 ML VIAL/CARP IV PRN (13:45)
[2020-11-10] MEDS ORDERED: bisacodyL 10 MG SUPP PR PRN (13:45)
[2020-11-10] MEDS ORDERED: HYDROmorphone INJ 0.5 MG/0.5 ML SYR IV PRN (13:45)
[2020-11-10] MEDS ORDERED: CETIRIZINE HCL 10 MG TABLET PO PRN (13:48)
[2020-11-10] MEDS: ACETAMINOPHEN 500 MG TAB PO SCH ×2 (14:15→21:21)
[2020-11-10] MEDS: SODIUM CHLORIDE 0.9% 1000ML 1,000 ML IV SCH (14:15)
[2020-11-10] MEDS ORDERED: Scopolamine CHECK PATCH PLACEMENT SCH (16:00)
[2020-11-10] MEDS: FERROUS GLUCONATE 324 MG TAB PO SCH (17:14)
[2020-11-10] MEDS: ceFAZolin 2000MG 2,000 MG/15 ML SYR IV SCH (17:17)
[2020-11-10] MEDS ORDERED: SENNA 8.6 MG TAB PO SCH (21:00)
[2020-11-10] MEDS: ASPIRIN 81 MG ECTAB PO SCH (21:21)
[2020-11-10] MEDS: DOCUSATE SODIUM 100 MG CAP PO SCH (21:22)
[2020-11-10] MEDS: oxyCODONE HCL IR 5 MG TAB (IMMEDIATE RELEASE) PO PRN (23:30)
[2020-11-11] MEDS: SODIUM CHLORIDE 0.9% 1000ML 1,000 ML IV SCH (01:13)
[2020-11-11] MEDS: ceFAZolin 2000MG 2,000 MG/15 ML SYR IV SCH (02:22)
[2020-11-11 05:55] LABS: Hematocrit (blood only) 36.1 % (42-52); Hemoglobin 12.1 g/dL (14.0-18.0); Mean Corpuscular Hemoglobin 27.6 pg (25-34); Mean Corpuscular Hgb Conc 33.5 g/dL (32-36); Mean Corpuscular Volume 82.4 fL (80-100); Platelet Count 157 K/uL (130-400); RDW Coefficient of Variation 13.9 % (11.5-14.5); RDW Standard Deviation 42.2 fL (36.4-46.3); Red Blood Count 4.38 M/uL (4.7-6.1); White Blood Count 12.82 K/uL (4.8-10.8)
[2020-11-11] MEDS: ACETAMINOPHEN 500 MG TAB PO SCH ×2 (05:58→12:55)
[2020-11-11 06:26] LABS: BUN Creatinine Ratio 17.3 (10-20); Calcium 8.2 mg/dl (8.5-10.1); Creatinine Clr Calc Pharmacy 69.2 ml/min; Est GFR (African American) 87.7 ml/min; Est GFR (Non-African American) 75.6 ml/min; Potassium 3.8 mmol/L (3.5-5.1)
--- NOTE | 2020-11-11 07:30 | Orthopedic Progress Note ---
Date of Service November 11, 2020 Assessment & Plan (1) History of total right knee replacement: Plan: POD #1 s/p Right TKA pt/ot dvt proph with HELEN/SCD/ASA plan for d/c home with home health PT Admission and Anticipated Discharge Date Admission Date: November 10, 2020 Subjective POD #1 s/p Right TKA Review of Systems Constitutional: no fever, no chills and no sweats Respiratory: no cough and no dyspnea Cardiovascular: no chest pain and no dyspnea Gastrointestinal: no abdominal pain, no nausea and no vomiting Physical Exam Physical Exam: Vital Signs Temp Pulse Pulse Pulse Resp BP BP 11/11/20 07:24 36.6 C 43 L 17 113/62 11/11/20 02:52 36.5 C 45 L 16 136/79 11/10/20 22:58 36.7 C 67 16 125/67 11/10/20 20:35 36.6 C 50 L 18 132/71 11/10/20 16:30 36.4 C L 49 L 17 122/60 11/10/20 15:55 36.8 C 48 L 17 116/66 11/10/20 15:06 36.8 C 50 L 17 127/73 11/10/20 14:09 36.4 C L 46 L 17 132/62 11/10/20 13:30 36.4 C L 42 L 16 120/59 L 11/10/20 13:15 46 L 18 114/58 L 11/10/20 13:05 44 L 18 107/55 L 11/10/20 12:55 36.2 C L 47 L 18 108/54 L 11/10/20 12:45 47 L 18 110/50 L 11/10/20 12:35 47 L 22 111/52 L 11/10/20 12:25 45 L 14 105/50 L 11/10/20 12:15 55 L 15 103/52 L 11/10/20 12:09 36.4 C L 71 15 111/62 11/10/20 09:32 36.4 C L 51 L 18 155/65 H 11/10/20 08:27 36.6 C 57 L 18 177/72 H Pulse Ox 11/11/20 07:24 97 11/11/20 02:52 96 11/10/20 22:58 92 11/10/20 20:35 97 11/10/20 16:30 95 11/10/20 15:55 96 11/10/20 15:06 95 11/10/20 14:09 100 11/10/20 13:30 98 11/10/20 13:15 96 11/10/20 13:05 96 11/10/20 12:55 97 11/10/20 12:45 97 11/10/20 12:35 96 11/10/20 12:25 95 11/10/20 12:15 94 11/10/20 12:09 96 11/10/20 09:32 98 11/10/20 08:27 98 Intake and Output 11/10/20 11/11/20 11/11/20 22:59 06:59 14:59 Intake Total 650 / 2550 1000 / 2550 Output Total 700 / 1570 800 / 1570 Balance -50 / 980 200 / 980 Intake: IV 100 / 1200 1000 / 1200 Sodium Chlorid e 0.9% 1000ML 1, 1000 / 1000 000 ml @ 100 m ls/hr IV .Q10H RUTH Rx#:[id number] Tranexamic Aci d / 0.7% NaCl 1, 100 / 100 000 mg In 100 ml @ 600 mls/hr IV TODAY@0600 RUTH Rx#:[id number] Oral 550 / 850 Output: Urine 475 / 1125 650 / 1125 Drain Output 225 / 395 150 / 395 Right Knee Hem ovac 225 / 395 150 / 395 Other: # Unmeasured Voi ds 1 1 1 Constitutional: WD/WN, vitals as above Musculoskeletal: Right Leg: NVDI, calf SNT, negative jacqueline sign. DP palpable, able to wiggle toes/ankle movement without difficulty. dressing clean dry and intact. Results & Data ([facility]) Vital Signs (Past 12 Hours) Vital Signs Temp Pulse Resp BP Pulse Ox 11/11/20 07:24 36.6 C 43 L 17 113/62 97 11/11/20 02:52 36.5 C 45 L 16 136/79 96 11/10/20 22:58 36.7 C 67 16 125/67 92 11/10/20 20:35 36.6 C 50 L 18 132/71 97 Laboratory Results Laboratory Results WBC 12.82 K/uL (4.8-10.8) H 11/11/20 05:41 RBC 4.38 M/uL (4.7-6.1) L 11/11/20 05:41 Hgb 12.1 g/dL (14.0-18.0) L 11/11/20 05:41 Hct 36.1 % (42-52) L 11/11/20 05:41 MCV 82.4 fL (80-100) 11/11/20 05:41 MCH 27.6 pg (25-34) 11/11/20 05:41 MCHC 33.5 g/dL (32-36) 11/11/20 05:41 RDW Std Deviation 42.2 fL (36.4-46.3) 11/11/20 05:41 RDW Coeff of Severo 13.9 % (11.5-14.5) 11/11/20 05:41 Plt Count 157 K/uL (130-400) 11/11/20 05:41 MPV 9.0 fL (7.4-10.4) 11/11/20 05:41 Sodium 137 mmol/L (136-145) 11/11/20 05:41 Potassium 3.8 mmol/L (3.5-5.1) 11/11/20 05:41 Chloride 110 mmol/L (98-107) H 11/11/20 05:41 Carbon Dioxide 22 mmol/L (21-32) 11/11/20 05:41 Anion Gap 5.0 (3-11) 11/11/20 05:41 BUN 17 mg/dl (7-18) 11/11/20 05:41 Creatinine 0.98 mg/dl (0.6-1.4) 11/11/20 05:41 Est Cr Clr Drug Dosing 69.2 ml/min 11/11/20 05:41 Est GFR ( Amer) 87.7 ml/min 11/11/20 05:41 Est GFR (Non-Af Amer) 75.6 ml/min 11/11/20 05:41 BUN/Creatinine Ratio 17.3 (10-20) 11/11/20 05:41 Glucose 121 mg/dl (70-99) H 11/11/20 05:41 Calcium 8.2 mg/dl (8.5-10.1) L 11/11/20 05:41 COVID-19 [facility] 11/10/20 08:15 SARS-CoV-2, RNA, NAAT NEGATIVE (NEGATIVE) 11/10/20 08:15 Impressions Knee X-Ray 11/10/20 12:17 RIGHT KNEE 2 VIEWS History: Right total knee arthroplasty. Degenerative arthritis. Postop. FINDINGS: The patient is status post a right total knee arthroplasty. The hardware is intact. No fracture or dislocation. Surgical drains are in place. IMPRESSION: Right total knee arthroplasty. No evidence for hardware complication. ACT 112: Negative or not required by law.. Electronically signed by: Adama Abad M.D. 11/10/2020 12:24 PM
[2020-11-11] MEDS: DOCUSATE SODIUM 100 MG CAP PO SCH (08:27)
[2020-11-11] MEDS: FERROUS GLUCONATE 324 MG TAB PO SCH (08:27)
[2020-11-11] MEDS: ASPIRIN 81 MG ECTAB PO SCH (08:28)
[2020-11-11] MEDS: oxyCODONE HCL IR 5 MG TAB (IMMEDIATE RELEASE) PO PRN ×2 (08:33→12:55)
[2020-11-11] MEDS ORDERED: PANTOprazole 40 MG TAB PO SCH (09:00)
[2020-11-11] MEDS ORDERED: MULTIVITAMIN TAB PO SCH (09:00)
[2020-11-11] MEDS ORDERED: lisinopril 40 MG TAB PO SCH (09:00)
[2020-11-11] MEDS ORDERED: MONTELUKAST SODIUM 10 MG TABLET PO SCH (09:00)
[2020-11-11] MEDS ORDERED: ATORVASTATIN 40 MG TAB PO SCH (09:00)
--- NOTE | 2020-11-13 08:11 | Discharge Summary ---
Date of Service November 13, 2020 Admission HPI Per Admitting Provider Gene is a 75 year old male who complains of right knee pain, presents for pre-op evaluation prior to a right total knee replacement by Dr Yee at [facility]. he complains of pain, decreased range of motion, instability and stiffness in his right knee. Currently the patient states that the symptoms are moderate- severe and rated as 8/10. The pain is described as aching, sharp and throbbing. The symptoms are aggravated by ascending stairs, daily activities, first steps while awake walking. Prior NSAIDs include IBU, Aleve and mobic. He has been treated with previous cortisone and visco injections in the past without much relief. he previously underwent Right knee arthroscopy with partial medial meniscectomy Arthroscopic chondroplasty medial femoral condyle patellofemoral joint on 01/15/2020 Admission Exam Per Admitting Provider Physical Exam: HT: 5ft 6in wt: 89.2kg Constitutional: WD/WN, vitals as above no acute distress Respiratory: normal respiratory effort, lungs clear to auscultation no respiratory distress, no labored breathing and does not use accessory muscles Cardiovascular: RRR, no murmur, no edema Gastrointestinal (Abdomen): normal bowel sounds, soft, nontender, no hepatosplenomegaly Musculoskeletal: Knee: + knee abnormal to inspection (Right Knee- ), + effusion (+1 effusion), + surgical incision (well healed portals), + limited ROM of knee (ROM 0/3/110), + knee ROM with crepitation, + joint line tenderness (medial joint line) and + David's sign positive; no deformity, no skin erythema, no ecchymosis, no valgus laxity, no varus laxity, anterior drawer test negative, Madelaine's sign negative and pivot shift test negative Principal Diagnosis Right Knee Osteoarthritis Discharge Data Allergies Allergy/AdvReac Type Severity Reaction Status Date / Time No Known Drug Allergies Allergy Verified 10/27/20 09:01 Procedures Performed Operation Date: 11/10/20 10:10 Actual Procedures p Right Total Knee Arthroplasty(Right) - Sarabjit Yee DO Ordered Studies 11/10/20 05:00 US - OR guided needle placemen Routine Hospital Course (1) Arthritis of right knee: Addendum (Blank) Addendum November 11, 2020 11:44 Rechecked patient this morning. Doing well, pain controlled. Did well with PT. Has been bradycardic, 46bmp per my evaluation. States he normally is bradycardic, preop EKG with pulse rate of 46 as well. Plan on discharge home with home health today. Addendum Signed By:<Electronically signed by William Walsh >11/11/20 1147Addendum Cosigned By:<Electronically signed by Sergio Arce PA-C>11/11/20 1323<Electronically signed by Bk Roman MD>11/12/20 0710Created: 11/11/2002/21/1146 Date of Service November 11, 2020 Assessment & Plan (1) History of total right knee replacement: Plan: POD #1 s/p Right TKA pt/ot dvt proph with HELEN/SCD/ASA plan for d/c home with home health PT Admission and Anticipated Discharge Date Admission Date: November 10, 2020 Subjective POD #1 s/p Right TKA Review of Systems Constitutional: no fever, no chills and no sweats Respiratory: no cough and no dyspnea Cardiovascular: no chest pain and no dyspnea Gastrointestinal: no abdominal pain, no nausea and no vomiting Physical Exam Physical Exam: Vital Signs Temp Pulse Pulse Pulse Resp BP BP 11/11/20 07:24 36.6 C 43 L 17 113/62 11/11/20 02:52 36.5 C 45 L 16 136/79 11/10/20 22:58 36.7 C 67 16 125/67 11/10/20 20:35 36.6 C 50 L 18 132/71 11/10/20 16:30 36.4 C L 49 L 17 122/60 11/10/20 15:55 36.8 C 48 L 17 116/66 11/10/20 15:06 36.8 C 50 L 17 127/73 11/10/20 14:09 36.4 C L 46 L 17 132/62 11/10/20 13:30 36.4 C L 42 L 16 120/59 L 11/10/20 13:15 46 L 18 114/58 L 11/10/20 13:05 44 L 18 107/55 L 11/10/20 12:55 36.2 C L 47 L 18 108/54 L 11/10/20 12:45 47 L 18 110/50 L 11/10/20 12:35 47 L 22 111/52 L 11/10/20 12:25 45 L 14 105/50 L 11/10/20 12:15 55 L 15 103/52 L 11/10/20 12:09 36.4 C L 71 15 111/62 11/10/20 09:32 36.4 C L 51 L 18 155/65 H 11/10/20 08:27 36.6 C 57 L 18 177/72 H Pulse Ox 11/11/20 07:24 97 11/11/20 02:52 96 11/10/20 22:58 92 11/10/20 20:35 97 11/10/20 16:30 95 11/10/20 15:55 96 11/10/20 15:06 95 11/10/20 14:09 100 11/10/20 13:30 98 11/10/20 13:15 96 11/10/20 13:05 96 11/10/20 12:55 97 11/10/20 12:45 97 11/10/20 12:35 96 11/10/20 12:25 95 11/10/20 12:15 94 11/10/20 12:09 96 11/10/20 09:32 98 11/10/20 08:27 98 Intake and Output 11/10/20 11/11/20 11/11/20 22:59 06:59 14:59 Intake Total 650 / 2550 1000 / 2550 Output Total 700 / 1570 800 / 1570 Balance -50 / 980 200 / 980 Intake: IV 100 / 1200 1000 / 1200 Sodium Chlorid e 0.9% 1000ML 1, 1000 / 1000 000 ml @ 100 m ls/hr IV .Q10H [facility] Rx#:[id number] Tranexamic Aci d / 0.7% NaCl 1, 100 / 100 000 mg In 100 ml @ 600 mls/hr IV TODAY@0600 RUTH Rx#:[id number] Oral 550 / 850 Output: Urine 475 / 1125 650 / 1125 Drain Output 225 / 395 150 / 395 Right Knee Hem ovac 225 / 395 150 / 395 Other: # Unmeasured Voi ds 1 1 1 Constitutional: WD/WN, vitals as above Musculoskeletal: Right Leg: NVDI, calf SNT, negative jacqueline sign. DP palpable, able to wiggle toes/ankle movement without difficulty. dressing clean dry and intact. Results & Data ([facility]) Vital Signs (Past 12 Hours) Vital Signs Temp Pulse Resp BP Pulse Ox 11/11/20 07:24 36.6 C 43 L 17 113/62 97 11/11/20 02:52 36.5 C 45 L 16 136/79 96 11/10/20 22:58 36.7 C 67 16 125/67 92 11/10/20 20:35 36.6 C 50 L 18 132/71 97 Laboratory Results Laboratory Results WBC 12.82 K/uL (4.8-10.8) H 11/11/20 05:41 RBC 4.38 M/uL (4.7-6.1) L 11/11/20 05:41 Hgb 12.1 g/dL (14.0-18.0) L 11/11/20 05:41 Hct 36.1 % (42-52) L 11/11/20 05:41 MCV 82.4 fL (80-100) 11/11/20 05:41 MCH 27.6 pg (25-34) 11/11/20 05:41 MCHC 33.5 g/dL (32-36) 11/11/20 05:41 RDW Std Deviation 42.2 fL (36.4-46.3) 11/11/20 05:41 RDW Coeff of Severo 13.9 % (11.5-14.5) 11/11/20 05:41 Plt Count 157 K/uL (130-400) 11/11/20 05:41 MPV 9.0 fL (7.4-10.4) 11/11/20 05:41 Sodium 137 mmol/L (136-145) 11/11/20 05:41 Potassium 3.8 mmol/L (3.5-5.1) 11/11/20 05:41 Chloride 110 mmol/L (98-107) H 11/11/20 05:41 Carbon Dioxide 22 mmol/L (21-32) 11/11/20 05:41 Anion Gap 5.0 (3-11) 11/11/20 05:41 BUN 17 mg/dl (7-18) 11/11/20 05:41 Creatinine 0.98 mg/dl (0.6-1.4) 11/11/20 05:41 Est Cr Clr Drug Dosing 69.2 ml/min 11/11/20 05:41 Est GFR ( Amer) 87.7 ml/min 11/11/20 05:41 Est GFR (Non-Af Amer) 75.6 ml/min 11/11/20 05:41 BUN/Creatinine Ratio 17.3 (10-20) 11/11/20 05:41 Glucose 121 mg/dl (70-99) H 11/11/20 05:41 Calcium 8.2 mg/dl (8.5-10.1) L 11/11/20 05:41 COVID-19 Eval Order Covid19 IDNow [facility] 11/10/20 08:15 SARS-CoV-2, RNA, NAAT NEGATIVE (NEGATIVE) 11/10/20 08:15 Impressions Knee X-Ray 11/10/20 12:17 RIGHT KNEE 2 VIEWS History: Right total knee arthroplasty. Degenerative arthritis. Postop. FINDINGS: The patient is status post a right total knee arthroplasty. The hardware is intact. No fracture or dislocation. Surgical drains are in place. IMPRESSION: Right total knee arthroplasty. No evidence for hardware complication. ACT 112: Negative or not required by law.. Electronically signed by: Adama Abad M.D. 11/10/2020 12:24 PM Total Time Total Time Spent Total Time Spent (In Minutes): 5 Discharge Plan Discharge Items Patient Disposition: Home - Home Health Services Reason For Visit: Right Knee Osteoarthritis Discharge Diagnosis: Right Knee Osteoarthritis Condition on Discharge: Good Activity: Per Instructions section Lifting: Wait until after follow-up appointment Weightbearing Comment: as tolerated with walker Non-emergency contact: Surgeon Call non-emergency contact if: your pain is not controlled, your temperature is above 101.5, your wound has increased redness and your wound has increased drainage Follow-up/Referrals: Juan Smith MD [Primary Care Provider] - Diet: Regular Addtl Attending Provider Instructions: ACTIVITY RECOMMENDATIONS: SELF CARE INSTRUCTIONS AFTER TOTAL KNEE REPLACEMENT A. You may need to continue a physical therapy program after discharge from the hospital. There are several options available to you. Your doctor will assist you in selecting the best one for you. 1. An out-patient facility 2 to 3 times a week for therapy or home therapy. 2. Continue working on all exercises taught to you in the hospital. Your goals should be to increase bending of your knee to 90 degrees and beyond and to fully straighten your knee. B. You may progress at your own pace from walking with a walker or crutches to a cane; then to no assistive devices. C. Make walking a part of your daily routine. Be up as much as comfortable with rest periods throughout the day. Rest with leg elevation is very important. Use the ice wrap frequently for the first 3-4 weeks. D. There are no restrictions on activities. You may ride in a car, shop, participate in grades 1 thru 6 visiting teacher and all social activities. E. Wear the long elastic stockings (HELEN hose) 20 hours a day for 2 weeks after surgery. They can be removed several times a day for laundering and for a bath. F. You may shower, no tub baths until cleared by your doctor. SPECIAL CARE INSTRUCTIONS: VERY IMPORTANT TO READ AND REVIEW A. There are a few signs you need to watch for after you are home. Call [facility] if you notice any of the followin. Increased severe knee pain. Some pain is expected especially when you exercise. 2. Increased swelling in your leg or knee; pain or swelling of the calf muscle in either lower leg. 3. Any fluid drainage from the incision. 4. Shortness of breath or chest pain. B. Please call [facility] at if you have any concerns or questions about your operation or recovery. The doctor or his nurse will return your call promptly. C. You must take antibiotics before dental work, bladder, bowel or other surgery. Your doctor will provide you with a permanent care to carry describing this precaution. IMPORTANT: * REMEMBER TO TAKE ASPIRIN, 81 MG, TWICE DAILY FOR 4 WEEKS UNLESS OTHERWISE DIRECTED. THIS IS YOUR BLOOD THINNER. * HIGH RISK PATIENTS MAY BE PRESCRIBED A STRONGER BLOOD THINNER. THIS WILL BE PROVIDED AT DISCHARGE. * CALL IF INCREASED PAIN, REDNESS, DRAINAGE OR FEVER GREATER THAT 101. * WEAR HELEN HOSE 20 HOURS PER DAY FOR 2 WEEKS. * DERMABOND Prineo- This is a mesh tape dressing that is covered with glue. It should remain in place until the incision is properly healed, usually 10-14 days. This dressing is designed to naturally slough off. You may trim the excess mesh tape as it peels off. Incision may be briefly wet in a shower. Dry immediately by blotting with a clean, dry towel. Do not bath or swim until instructed by your doctor. Do not scratch, rub, or pick at the dressing. Do not apply any topical ointments or lotions until dressing is completely removed and/or instructed by your doctor. There may be a small piece of suture material at one end of your incision. Do not pull or trim this. If it is bothersome or catching on clothing, you may cover it with a band-aid. Call the office with questions. . FOLLOW UP VISIT: If appointment is not already scheduled: Please call [facility] to make a follow-up appointment for 2 weeks after your surgery at . Pending Studies at Discharge: No Stand-Alone Forms: [facility], Opioid Pain Management, Smoking Cessation Medications and DC Order Prescriptions: New aspirin 81 mg Tablet,Delayed Release (Dr/Ec) 81 mg PO BID 30 Days Qty: 60 RF: 0 acetaminophen [Tylenol Extra Strength] 500 mg Tablet 1,000 mg PO Q8 21 Days Qty: 126 RF: 0 oxycodone 5 mg Tablet 5 - 10 mg PO Q6H PRN (Reason: pain) Qty: 30 RF: 0 docusate sodium 100 mg Capsule 100 mg PO BID 10 Days Qty: 20 RF: 0 celecoxib [Celebrex] 200 mg capsule 200 mg PO BID 30 Days Qty: 60 RF: 0 cefadroxil 500 mg capsule 500 mg PO BID 14 Days Qty: 28 RF: 0 Continued lisinopril 40 mg tablet 40 mg PO QAM Qty: 90 RF: 3 sildenafil 100 mg tablet 100 mg PO DAILY PRN (Reason: sexual activity) Qty: 36 RF: 0 atorvastatin 80 mg tablet 80 mg PO QAM Qty: 90 RF: 3 hydrochlorothiazide 25 mg tablet 25 mg PO QAM Qty: 90 RF: 3 famotidine 20 mg tablet 20 mg PO Q2D RF: 0 Zyrtec 10 mg Capsule 1 tab PO HS PRN (Reason: Allergy Symptoms) RF: 0 fluticasone propionate [Flonase Allergy Relief] 50 mcg/actuation spray,suspension 2 spray INTRANASAL BID PRN (Reason: sinus congestion ) RF: 0 azelastine 0.15 % (205.5 mcg) spray,non-aerosol 2 spray INTNAS BID PRN (Reason: sinus congestion) RF: 0 Discontinued aspirin 81 mg Tablet,Delayed Release (Dr/Ec) 81 mg PO QAM RF: 0 ibuprofen 800 mg Tablet 800 mg PO BID PRN (Reason: Pain) RF: 0 No Action montelukast 10 mg tablet 10 mg PO QAM Qty: 90 RF: 3 Discharge Orders: Discharge Order (Routine); Ordered 11/11/20 Ordered By: William Lacey/Other Patient Handouts: DVT Post Op Prevention Admission Data Admit Date/Time: 11/10/20 12:17 Attending Provider: Sarabjit Yee Admit Provider: Sarabjit Yee Primary Care Provider: Juan Smith Other Providers: [facility],Home Healthcare Other Interventions: Discharge Summary Assessment (RN) Last Done: 11/11/20 12:13
== END 2020-11-11 14:22 | disposition home health service (06) ==
LOC: ASU 07:54 → 3E 07:54

== ENCOUNTER 2022-05-20 20:15 | Inpatient (IN) ==
[2022-05-20] MEDS ORDERED: OPTIRAY 320 500ml IV ONE (20:29)
--- NOTE | 2022-05-20 20:39 | CT Scan Report ---
UNENHANCED CT OF THE BRAIN; CT ANGIOGRAM OF THE BRAIN; CT ANGIOGRAM OF THE NECK CLINICAL HISTORY: Neurological deficit. Stroke like symptoms. COMPARISON STUDY: CT of the brain dated 11/02/2017. TECHNIQUE: Unenhanced axial CT scan of the brain is performed. Subsequently, following the IV adminis tration of 120 of [address] 320, CT angiogram of the head and neck was performed from the aortic arch t o the vertex. Images are reviewed in the axial, sagittal, and coronal planes. 3-D MIPS images are cre ated and assessed. IV contrast was administered without complication. All measurements were calculate d based on NASCET criteria. A dose lowering technique was utilized adhering to the principles of ALA RA. CT DOSE: 1404.04 mGy.cm FINDINGS: Brain parenchyma: There is age related involutional change noting mild microangiopathic disease. Ther e is no hemorrhage, mass effect, or evidence of acute territorial ischemia by CT criteria. There is n o evidence of enhancing mass lesion on the angiogram phase images. The ventricles, sulci, and cistern s are prominent secondary to involutional change. Wen-white matter differentiation is preserved. No extra-axial fluid collection is seen. Thoracic aorta: Visualized portions of the thoracic aorta are normal in caliber. The aortic arch demo nstrates standard 3-vessel anatomy. Right carotid arterial system: The right common carotid artery is widely patent, as are the right int ernal and external carotid arteries. Left carotid arterial system: The left common carotid artery is widely patent, as are the left staff internist office based only al and external carotid arteries. Calcified plaque is noted in the carotid bulb. Vertebral arteries: The vertebral arteries are widely patent bilaterally and codominant in the neck. Subclavian arteries: Widely patent bilaterally. Intracranial vasculature: There is atherosclerotic calcification of the cavernous carotid and vertebr al arteries. The internal carotid arteries are patent at the skull base, as are the anterior and midd le cerebral arteries bilaterally. The vertebrobasilar system and posterior cerebral arteries are wide ly patent. There is origin of left posterior cerebral artery. The left vertebral artery is slig htly dominant. There is no aneurysm, high-grade stenosis, or focal vessel cut off seen throughout the intracranial circulation. Jugular veins: Patent bilaterally. Dural sinuses: Patent. Lung apices: Partially visualized upper lobe lung parenchyma appears clear. Soft tissues: The visualized pharyngeal soft tissues are normal in appearance noting angiographic pha se technique. The oropharyngeal airway appears widely patent. The salivary and thyroid glands are nor mal in appearance. No cervical lymphadenopathy is seen. Skeletal structures: The skeletal structures are osteopenic. The calvarium appears intact. The cervic al spine is maintained noted multilevel spondylosis. No lytic or blastic lesion is seen. Orbits: The bony orbits are intact. Orbital contents are normal as visualized noting bilateral ocular lens implants. Sinuses and mastoids: The paranasal sinuses are clear. The mastoid air cells are well pneumatized. IMPRESSION: 1. There is no hemorrhage, mass effect, or evidence of acute territorial ischemia by CT criteria. 2. Unremarkable CT angiogram of the brain. 3. Unremarkable CT angiogram of the neck. ACT 112: Negative or not required by law. Electronically signed by: Israel Simmons M.D. 05/20/2022 8:37 PM
[2022-05-20 20:47] LABS: Basophils # (auto) 0.01 K/uL (0-0.2); Basophils % (auto) 0.2 %; Eosinophils # (auto) 0.11 K/uL (0-0.50); Eosinophils % (auto) 2.1 %; Hematocrit (blood only) 38.1 % (42.0-52.0); Hemoglobin 12.6 g/dl (14.0-18.0); Immature Granulocytes # (auto) 0.02 K/uL (0.01-0.20); Immature Granulocytes % (auto) 0.4 %; Lymphocytes % (auto) 43.2 %; Mean Corpuscular Hemoglobin 27.2 pg (25.0-34.0); Mean Corpuscular Hgb Conc 33.1 g/dL (32.0-36.0); Mean Corpuscular Volume 82.1 fL (80.0-100.0); Mean Platelet Volume 8.9 fL (9.4-12.4); Monocytes # (auto) 0.41 K/uL (0.11-0.59); Monocytes % (auto) 7.7 %; Neutrophils # (auto) 2.48 K/uL (1.40-6.50); Neutrophils % (auto) 46.4 %; Platelet Count 188 K/uL (130-400); RDW Coefficient of Variation 14.1 % (11.5-14.5); RDW Standard Deviation 41.3 fL (36.4-46.3); Red Blood Count 4.64 M/uL (4.70-6.10); White Blood Count 5.33 K/ul (4.8-10.8)
[2022-05-20] MEDS ORDERED: LABETALOL HCL IV 5 MG/ML 20ML IV STA ×3 (20:47→21:12)
[2022-05-20] MEDS ORDERED: STAT IV STA (21:10)
[2022-05-20] MEDS ORDERED: SODIUM CHLORIDE 0.9% 10ML FLUSH IV STA (21:10)
[2022-05-20 21:13] LABS: Albumin Globulin Ratio 1.7 (0.9-2); BUN Creatinine Ratio 12.9 (10-20); Bilirubin,Total 0.7 mg/dl (0.2-1.0); Calcium 9.1 mg/dl (8.5-10.1); Creatinine Clr Calc Pharmacy 78.6 ml/min; Est GFR (African American) 98.8 ml/min; Est GFR (Non-African American) 85.2 ml/min; Globulin 2.3 gm/dl (2.5-4.0); Potassium 3.1 mmol/L (3.5-5.1); Total Protein 6.3 gm/dl (6.0-8.3)
[2022-05-20] MEDS ORDERED: No Aspirin within 24hrs of THROMBOLYTIC-Stroke PO SCH (21:15)
[2022-05-20 21:18] LABS: Troponin I High Sensitivity 8.6 pg/ml (0-20)
[2022-05-20] MEDS ORDERED: TENECTEPLASE 22 MG in SYRINGE 0 ML IV ONE (21:21)
--- NOTE | 2022-05-20 21:29 | Emergency Department Note ---
Impression & Plan Cerebrovascular accident, HTN (hypertension), Acute right-sided muscle weakness, Aphasia ED Provider Note Provider: Phuc Malloy MD DATE OF SERVICE: 05/20/2022 CHIEF COMPLAINT: Weakness HISTORY OF PRESENT ILLNESS: Patient is a 76-year-old gentleman history of hernia repair, prediabetes, and allergies presenting here today with sudden onset around 7:15 PM this evening of right-sided weakness and speech issues. Was walking across the room according to and family and had the sudden onset of speech issues right facial droop and discoordination. He was helped down but had significant and was total paralysis of the right arm and leg. EMS activated. Immediately brought here for evaluation. Made a stroke alert prior to arrival. Patient taken immediately to CT scanner. No history of similar reported. No history of stroke reported. No recent trauma. Did have abdominal hernia surgery about a month ago at [facility]. Is on aspirin but not on other blood thinners. PAST MEDICAL HISTORY: As noted above MEDICATIONS: Reviewed home medication list things SOCIAL HISTORY: and lives at home PHYSICAL EXAM: GENERAL: alert in no acute distress on stretcher Head: normocephalic and atraumatic EYES: No injection, discharge or icterus. NECK: Trachea midline ENT: Mucous membranes pink and moist. LUNGS: Airway patent. No retractions. Breath sounds clear with good air entry bilaterally. HEART: Regular rate and rhythm. No chest wall tenderness ABDOMEN: Soft and non-tender, without guarding or rebound. Healing mid abdominal wound with abdominal binder in place. SKIN: Acyanotic, warm, dry, without rashes EXTREMITIES: Without swelling, tenderness or deformity NEUROLOGICAL: Right facial droop. Slight flicker of response to painful stimuli in the right leg with no movement of the right arm. Aphasic occasionally grunts. Gaze does not cross midline to the right but mainly focus midline into the left. No seizure activity appreciated. Follows some commands and freely moving left arm and leg. EK bpm normal sinus rhythm with sinus arrhythmia. No PVC or PAC. No acute ST segment elevation or depression with QTc of 453. CONTINUOUS CARDIAC MONITORING: was ordered and showed a heart rate of 60s-80s bpm in normal sinus rhythm Patient's laboratory studies and imaging reviewed. Differential includes Infection, dehydration, metabolic abnormality, hypo/ hyperglycemia, electrolyte disturbance, anemia, hypoxia, cardiac sources, intracerebral event, toxicologic, neurologic, as well as other pathologies. IMPRESSION/MEDICAL DECISION MAKING: Patient made a stroke alert prior to arrival. Immediately taken to CT. Within the window for thrombolytics. Discussed with teleneurologist at [facility]. CT scans per radiology without evidence of acute LVO, aneurysm, or bleed. Significantly hypertensive greater than 185 systolic. Some delay in administration of thrombolytics after discussion with family due to his hypertension. Received several doses of labetalol for control of blood pressure which improved. In discussion of the risks and benefits both myself and the neurologist with family decided to proceed with thrombolytics given his severe neurological deficits that seem consistent with stroke at this time. Not on blood thinners. Platelets with normal limits. Not hypoglycemic. No significant cardiac arrhythmia noted. Thrombolytics administered. Hospitalist and ICU team made aware and discussed the case. Some improvement of right-sided weakness post administration. Family updated. DIAGNOSIS: Right-sided weakness, aphasia, CVA, hypertension DISPOSITION: Hospitalist will evaluate Critical Care I have personally spent 65 minutes of critical care time in the direct management of this patient. This includes bedside care, interpretation of diagnostic studies, and testing, discussion with consultants, patient, and family members, and other required patient management activities. These 65 minutes is in excess of all separately billable procedures. Past Med/Surg History Medical History Cardiac murmur Mild to moderate AR on 05/20/20 ECHO Follows only with cardio PRN GERD (gastroesophageal reflux disease) Well controlled and stable Hearing loss No hearing aids History of anesthesia reaction Lap hernia repair 05/2018 had urinary retention- olson catheter placed- no issues with other surgeries History of fainting NOV 2017- near syncope - had OP eval by neurology and cardiology, ruled vasovagal, no additional w/u needed-NO RECENT ISSUES History of skin cancer S/p removal Hyperlipidemia Hypertension Restless leg syndrome Mild/occasionally Sleep apnea cpap Surgical History History of arthroscopy of right knee History of cataract surgery bilateral History of colonoscopy with polypectomy History of hernia repair X2 S/P laparoscopic hernia repair ventral hernia repair with mesh Family History Father Leukemia Grandfather (Maternal) Myocardial infarction Mother Hearing loss Other No family history of adverse response to anesthesia No family history of bleeding disorder Denies family history of Ovarian cancer Prostate cancer Breast cancer Colorectal cancer Social History Smoking Status: Unknown if ever smoked Tobacco Type: Cigars Cigarettes Per Day: 1 CIGAR A WEEK; Second Hand Exposure: Yes (Parents SMOKED); Hx Alcohol Use: Yes Alcohol type: beer Alcohol Intake Frequency: 4 or More x per/Week Alcohol Intake Frequency Comment: 1 or 2 drinks a day Hx Substance Use: No Preferred Language: Slovak Communication Ability: Impaired Communication Ability Comment: aphasia Visual Impairment: No Limitations Hearing Ability: Normal Fertilizer Applicator Required: No Beliefs That Will Affect Care: None marital status: Current Living Situation: Spouse current occupational status: retired Other Information That Helps Us Care for You: No Feels Safe at Home: Yes Safety Concerns: Feels Safe At This Time Childhood Exposure to Second-Hand Smoke: Yes Dental Care, Regularly: Yes Physical Activity Frequency: 1-2 Times per Week Physical Activity Frequency Comment: therapy; 60 mins Seatbelt Use: always Sunscreen Use: Yes Assistive Devices: CPAP Allergies Allergies Allergy/AdvReac Type Severity Reaction Status Date / Time No Known Drug Allergies Allergy Verified 03/22/22 11:34 Home Meds Home Medications Medication Instructions Recorded Confirmed famotidine 20 mg tablet 20 mg PO Q2D 05/13/20 03/22/22 ropinirole 0.5 mg tablet 1 mg PO DAILY 03/22/22 tamsulosin 0.4 mg capsule cap PO 03/22/22 03/22/22 Previous Rx's Medication Instructions Recorded azelastine 205.5 mcg (0.15 %) 2 spray intranasal BID PRN sinus 01/01/21 nasal spray congestion #30 mL fluticasone propionate 50 2 spray intranasal BID PRN sinus 01/01/21 mcg/actuation nasal congestion #16 grams spray,suspension (Flonase Allergy Relief) sildenafil 100 mg tablet 100 mg PO DAILY PRN sexual 01/01/21 activity #36 tabs atorvastatin 80 mg tablet 80 mg PO QAM #90 tabs 10/15/21 hydrochlorothiazide 25 mg tablet 25 mg PO QAM #90 tabs 10/15/21 montelukast 10 mg tablet 10 mg PO QAM #90 tabs 11/04/21 amoxicillin 875 mg-potassium 1 tab PO BID 10 days #20 tabs 03/22/22 clavulanate 125 mg tablet olmesartan 40 mg tablet 40 mg PO DAILY #90 tabs 05/16/22 Results & Data (ED) Vital Signs Vital Signs - 24 hr 05/20/22 20:36 05/20/22 21:14 05/20/22 21:29 Temperature 37.0 C Temperature Source Oral Pulse Rate 82 Pulse Rate [Apical] 64 66 Pulse Rate from SpO2 Sensor Respiratory Rate 18 18 18 Respiratory Effort / Characteristics Non-Labored Spontaneous Non-Labored Spontaneous Non-Labored Respiratory Depth Normal Normal Normal Blood Pressure 186/91 H Blood Pressure [Right Arm] 174/83 H 182/98 H Blood Pressure Mean 122 Blood Pressure Mean [Right Arm] 113 126 Pulse Oximetry 99 99 99 Oxygen Delivery Method Room Air Room Air Room Air Sepsis New/Unexplained Change in Mental Status No Sepsis Action Taken by Nursing No Action Required 05/20/22 21:44 05/20/22 20:34 05/20/22 20:37 Temperature Temperature Source Pulse Rate 82 83 Pulse Rate [Apical] 64 Pulse Rate from SpO2 Sensor 76 Respiratory Rate 18 24 21 Respiratory Effort / Characteristics Non-Labored Spontaneous Respiratory Depth Normal Blood Pressure 186/91 H Blood Pressure [Right Arm] 190/73 H Blood Pressure Mean 122 Blood Pressure Mean [Right Arm] 112 Pulse Oximetry 95 79 L Oxygen Delivery Method Room Air Sepsis New/Unexplained Change in Mental Status Sepsis Action Taken by Nursing 05/20/22 20:46 05/20/22 20:50 05/20/22 20:56 Temperature Temperature Source Pulse Rate 81 81 75 Pulse Rate [Apical] Pulse Rate from SpO2 Sensor 81 82 75 Respiratory Rate 21 27 H 26 H Respiratory Effort / Characteristics Respiratory Depth Blood Pressure 210/83 H 224/90 H 187/74 H Blood Pressure [Right Arm] Blood Pressure Mean 125 134 111 Blood Pressure Mean [Right Arm] Pulse Oximetry 97 97 73 L Oxygen Delivery Method Sepsis New/Unexplained Change in Mental Status Sepsis Action Taken by Nursing 05/20/22 21:00 05/20/22 21:04 05/20/22 21:11 Temperature Temperature Source Pulse Rate 66 68 64 Pulse Rate [Apical] Pulse Rate from SpO2 Sensor 66 63 61 Respiratory Rate 23 19 19 Respiratory Effort / Characteristics Respiratory Depth Blood Pressure 187/79 H 182/85 H 175/108 H Blood Pressure [Right Arm] Blood Pressure Mean 115 117 130 Blood Pressure Mean [Right Arm] Pulse Oximetry 97 94 94 Oxygen Delivery Method Sepsis New/Unexplained Change in Mental Status Sepsis Action Taken by Nursing 05/20/22 21:18 05/20/22 21:20 05/20/22 21:25 Temperature Temperature Source Pulse Rate 63 65 64 Pulse Rate [Apical] Pulse Rate from SpO2 Sensor 62 64 64 Respiratory Rate 14 28 H 24 Respiratory Effort / Characteristics Respiratory Depth Blood Pressure 180/73 H 174/83 H 170/76 H Blood Pressure [Right Arm] Blood Pressure Mean 108 113 107 Blood Pressure Mean [Right Arm] Pulse Oximetry 97 99 99 Oxygen Delivery Method Sepsis New/Unexplained Change in Mental Status Sepsis Action Taken by Nursing 05/20/22 21:30 05/20/22 20:34 05/20/22 21:59 Temperature Temperature Source Pulse Rate 66 81 Pulse Rate [Apical] 63 Pulse Rate from SpO2 Sensor 66 Respiratory Rate 24 18 Respiratory Effort / Characteristics Non-Labored Spontaneous Respiratory Depth Normal Blood Pressure 182/98 H Blood Pressure [Right Arm] Blood Pressure Mean 126 Blood Pressure Mean [Right Arm] Pulse Oximetry 98 93 Oxygen Delivery Method Room Air Sepsis New/Unexplained Change in Mental Status Sepsis Action Taken by Nursing 05/20/22 21:42 05/20/22 21:46 05/20/22 21:54 Temperature Temperature Source Pulse Rate 62 63 62 Pulse Rate [Apical] Pulse Rate from SpO2 Sensor 63 62 62 Respiratory Rate 17 22 23 Respiratory Effort / Characteristics Respiratory Depth Blood Pressure 155/81 H 190/73 H 194/77 H Blood Pressure [Right Arm] Blood Pressure Mean 105 112 116 Blood Pressure Mean [Right Arm] Pulse Oximetry 98 96 98 Oxygen Delivery Method Sepsis New/Unexplained Change in Mental Status Sepsis Action Taken by Nursing 05/20/22 22:00 Temperature Temperature Source Pulse Rate 62 Pulse Rate [Apical] Pulse Rate from SpO2 Sensor 61 Respiratory Rate 21 Respiratory Effort / Characteristics Respiratory Depth Blood Pressure 181/70 H Blood Pressure [Right Arm] Blood Pressure Mean 107 Blood Pressure Mean [Right Arm] Pulse Oximetry 97 Oxygen Delivery Method Sepsis New/Unexplained Change in Mental Status Sepsis Action Taken by Nursing Laboratory Data 05/20/22 20:38 05/20/22 20:38 Lab Results 05/20/22 05/20/22 05/20/22 Range/Units 20:38 20:38 20:38 WBC 5.33 (4.8-10.8) K/ul RBC 4.64 L (4.70-6.10) M/uL Hgb 12.6 L (14.0-18.0) g/dl Hct 38.1 L (42.0-52.0) % MCV 82.1 (80.0-100.0) fL MCH 27.2 (25.0-34.0) pg MCHC 33.1 (32.0-36.0) g/dL RDW Std Deviation 41.3 (36.4-46.3) fL RDW Coeff of Severo 14.1 (11.5-14.5) % Plt Count 188 (130-400) K/uL MPV 8.9 L (9.4-12.4) fL Immature Gran % (Auto) 0.4 % Neut % (Auto) 46.4 % Lymph % (Auto) 43.2 % [place] % (Auto) 7.7 % Eos % (Auto) 2.1 % Baso % (Auto) 0.2 % Neut # (Auto) 2.48 (1.40-6.50) K/uL Lymph # (Auto) 2.30 (1.2-3.4) K/uL [place] # (Auto) 0.41 (0.11-0.59) K/uL Eos # (Auto) 0.11 (0-0.50) K/uL Baso # (Auto) 0.01 (0-0.2) K/uL Immature Gran # (Auto) 0.02 (0.01-0.20) K/uL PT 11.4 (9.0-12.0) Seconds INR 1.1 (0.9-1.1) APTT 25.8 (21.0-31.0) Seconds PTT Ratio 0.9 Sodium (136-145) mmol/L Potassium (3.5-5.1) mmol/L Chloride (98-107) mmol/L Carbon Dioxide (21-32) mmol/L Anion Gap (3-11) BUN (6-23) mg/dl Creatinine (0.6-1.4) mg/dl Est Cr Clr Drug Dosing ml/min Est GFR ( Amer) ml/min Est GFR (Non-Af Amer) ml/min BUN/Creatinine Ratio (10-20) Glucose (70-99(Fasting)) mg/dl Calcium (8.5-10.1) mg/dl Magnesium (1.7-2.4) mg/dl Total Bilirubin (0.2-1.0) mg/dl AST (13-39) U/L ALT (7-52) U/L Alkaline Phosphatase (34-104) U/L Troponin I High Sens (0-20) pg/ml Total Protein (6.0-8.3) gm/dl Albumin (3.4-5.0) gm/dl Globulin (2.5-4.0) gm/dl Albumin/Globulin Ratio (0.9-2) Urine Color Urine Appearance (Clear) Urine pH (4.5-7.5) Ur Specific [place] (1.000-1.030) Urine Protein (Negative) Urine Glucose (UA) (Negative) Urine Ketones (Negative) Urine Blood (Negative) Urine Nitrite (Negative) Urine Bilirubin (Negative) Urine Urobilinogen (Negative) Ur Leukocyte Esterase (Negative) Urine WBC (Auto) (0-5) /hpf Urine RBC (Auto) (0-4) /hpf U Hyaline Cast (Auto) (0-5) /lpf U Epithel Cells (Auto) (0-5) /lpf Urine Bacteria (Auto) (Negative) Calcium Oxalate Crystal (None Prsent) SARS-CoV-2, RNA, NAAT (NEGATIVE) Blood Type O Positive Antibody Screen NEGATIVE 05/20/22 05/20/22 05/20/22 Range/Units 20:38 21:17 21:35 WBC (4.8-10.8) K/ul RBC (4.70-6.10) M/uL Hgb (14.0-18.0) g/dl Hct (42.0-52.0) % MCV (80.0-100.0) fL MCH (25.0-34.0) pg MCHC (32.0-36.0) g/dL RDW Std Deviation (36.4-46.3) fL RDW Coeff of Severo (11.5-14.5) % Plt Count (130-400) K/uL MPV (9.4-12.4) fL Immature Gran % (Auto) % Neut % (Auto) % Lymph % (Auto) % [place] % (Auto) % Eos % (Auto) % Baso % (Auto) % Neut # (Auto) (1.40-6.50) K/uL Lymph # (Auto) (1.2-3.4) K/uL [place] # (Auto) (0.11-0.59) K/uL Eos # (Auto) (0-0.50) K/uL Baso # (Auto) (0-0.2) K/uL Immature Gran # (Auto) (0.01-0.20) K/uL PT (9.0-12.0) Seconds INR (0.9-1.1) APTT (21.0-31.0) Seconds PTT Ratio Sodium 137 (136-145) mmol/L Potassium 3.1 L (3.5-5.1) mmol/L Chloride 104 (98-107) mmol/L Carbon Dioxide 23 (21-32) mmol/L Anion Gap 10 (3-11) BUN 11 (6-23) mg/dl Creatinine 0.85 (0.6-1.4) mg/dl Est Cr Clr Drug Dosing 78.6 ml/min Est GFR ( Amer) 98.8 ml/min Est GFR (Non-Af Amer) 85.2 ml/min BUN/Creatinine Ratio 12.9 (10-20) Glucose 95 (70-99(Fasting)) mg/dl Calcium 9.1 (8.5-10.1) mg/dl Magnesium 2.0 (1.7-2.4) mg/dl Total Bilirubin 0.7 (0.2-1.0) mg/dl AST 24 (13-39) U/L ALT 26 (7-52) U/L Alkaline Phosphatase 71 (34-104) U/L Troponin I High Sens 8.6 (0-20) pg/ml Total Protein 6.3 (6.0-8.3) gm/dl Albumin 4.0 (3.4-5.0) gm/dl Globulin 2.3 L (2.5-4.0) gm/dl Albumin/Globulin Ratio 1.7 (0.9-2) Urine Color Yellow Urine Appearance Clear (Clear) Urine pH 7.5 (4.5-7.5) Ur Specific [place] 1.024 (1.000-1.030) Urine Protein Negative (Negative) Urine Glucose (UA) Negative (Negative) Urine Ketones Negative (Negative) Urine Blood 2+ H (Negative) Urine Nitrite Negative (Negative) Urine Bilirubin Negative (Negative) Urine Urobilinogen Negative (Negative) Ur Leukocyte Esterase Negative (Negative) Urine WBC (Auto) 5-10 H (0-5) /hpf Urine RBC (Auto) 5-10 H (0-4) /hpf U Hyaline Cast (Auto) 0 (0-5) /lpf U Epithel Cells (Auto) 0-5 (0-5) /lpf Urine Bacteria (Auto) Negative (Negative) Calcium Oxalate Crystal Present A (None Prsent) SARS-CoV-2, RNA, NAAT NEGATIVE (NEGATIVE) Blood Type Antibody Screen Administered Medications Potassium Chloride/Sodium Chloride (Normal Saline W/20 Meq Kcl) 20 meq in 1,000 mls @ 100 mls/hr IV .Q10H RUTH Stop: 06/19/22 23:30 Last Admin: 05/21/22 00:30 Dose: 100 mls/hr Documented By: SHEILA Discontinued Medications Hydralazine HCl (Hydralazine Hcl 20 Mg/Ml Vial) 10 mg IV Q4H STA Stop: 05/20/22 23:32 Last Admin: 05/21/22 00:30 Dose: Not Given Documented By: SHEILA Tenecteplase 22 mg/ Syringe 4.4 mls @ 52.8 mls/min IV NOW ONE; Protocol Stop: 05/20/22 21:22 Last Admin: 05/20/22 21:14 Dose: 52.8 mls/min Documented By: ISAIAH Co-signed By: TYRONE Ioversol (Optiray 320 500ml) 120 ml IV ONCE ONE Stop: 05/20/22 20:30 Last Admin: 05/20/22 20:29 Dose: 120 ml Documented By: SERA Labetalol HCl (Labetalol Hcl Iv 5 Mg/Ml 20ml) 10 mg IV NOW STA Stop: 05/20/22 20:48 Last Admin: 05/20/22 20:51 Dose: 10 mg Documented By: ISAIAH Co-signed By: TYRONE Labetalol HCl (Labetalol Hcl Iv 5 Mg/Ml 20ml) 10 mg IV NOW STA Stop: 05/20/22 21:04 Last Admin: 05/20/22 21:52 Dose: Not Given Documented By: ISAIAH Labetalol HCl (Labetalol Hcl Iv 5 Mg/Ml 20ml) 10 mg IV NOW STA Stop: 05/20/22 21:13 Last Admin: 05/20/22 21:52 Dose: Not Given Documented By: ISAIAH Miscellaneous (Stat Iv) 1 each N/A NOW STA Stop: 05/20/22 21:11 Last Admin: 05/21/22 00:50 Dose: Not Given Documented By: VK Sodium Chloride (Sodium Chloride 0.9% 10ml Flush) 20 ml IV NOW STA Stop: 05/20/22 21:11 Last Admin: 05/20/22 21:14 Dose: 20 ml Documented By: ISAIAH Imaging Data Radiologist's Impression: Head CT 05/20/22 20:[address] OF THE BRAIN; CT ANGIOGRAM OF THE BRAIN; CT ANGIOGRAM OF THE NECK CLINICAL HISTORY: Neurological deficit. Stroke like symptoms. COMPARISON STUDY: CT of the brain dated 11/02/2017. TECHNIQUE: Unenhanced axial CT scan of the brain is performed. Subsequently, fo llowing the IV administration of 120 of Optiray 320, CT angiogram of the head and neck was performed from the aortic arch to the vertex. Images are reviewed in the axial, sagittal, and coronal planes. 3-D MIPS images are created and assessed. IV contrast was administered without complication. All measurements were calculated based on NASCET criteria. A dose lowering technique was utilized adhering to the principles of ALARA. CT DOSE: 1404.04 mGy.cm FINDINGS: Brain parenchyma: There is age related involutional change noting mild microangiopathic disease. There is no hemorrhage, mass effect, or evidence of acute territorial ischemia by CT criteria. There is no evidence of enhancing mass lesion on the angiogram phase images. The ventricles, sulci, and cisterns are prominent secondary to involutional change. Wen-white matter differentiation is preserved. No extra-axial fluid collection is seen. Thoracic aorta: Visualized portions of the thoracic aorta are normal in caliber. The aortic arch demonstrates standard 3-vessel anatomy. Right carotid arterial system: The right common carotid artery is widely patent, as are the right internal and external carotid arteries. Left carotid arterial system: The left common carotid artery is widely patent, as are the left internal and external carotid arteries. Calcified plaque is noted in the carotid bulb. Vertebral arteries: The vertebral arteries are widely patent bilaterally and codominant in the neck. Subclavian arteries: Widely patent bilaterally. Intracranial vasculature: There is atherosclerotic calcification of the cavernous carotid and vertebral arteries. The internal carotid arteries are patent at the skull base, as are the anterior and middle cerebral arteries bilaterally. The vertebrobasilar system and posterior cerebral arteries are widely patent. There is origin of left posterior cerebral artery. The left vertebral artery is slightly dominant. There is no aneurysm, high-grade st enosis, or focal vessel cut off seen throughout the intracranial circulation. Jugular veins: Patent bilaterally. Dural sinuses: Patent. Lung apices: Partially visualized upper lobe lung parenchyma appears clear. Soft tissues: The visualized pharyngeal soft tissues are normal in appearance noting angiographic phase technique. The oropharyngeal airway appears widely patent. The salivary and thyroid glands are normal in appearance. No cervical lymphadenopathy is seen. Skeletal structures: The skeletal structures are osteopenic. The calvarium appears intact. The cervical spine is maintained noted multilevel spondylosis. No lytic or blastic lesion is seen. Orbits: The bony orbits are intact. Orbital contents are normal as visualized noting bilateral ocular lens implants. Sinuses and mastoids: The paranasal sinuses are clear. The mastoid air cells are well pneumatized. IMPRESSION: 1. There is no hemorrhage, mass effect, or evidence of acute territorial ischemia by CT criteria. 2. Unremarkable CT angiogram of the brain. 3. Unremarkable CT angiogram of the neck. ACT 112: Negative or not required by law. Electronically signed by: Israel Simmons M.D. 05/20/2022 8:37 PM Head CTA 05/20/22 20:[address] OF THE BRAIN; CT ANGIOGRAM OF THE BRAIN; CT ANGIOGRAM OF THE NECK CLINICAL HISTORY: Neurological deficit. Stroke like symptoms. COMPARISON STUDY: CT of the brain dated 11/02/2017. TECHNIQUE: Unenhanced axial CT scan of the brain is performed. Subsequently, following the IV administration of 120 of Optiray 320, CT angiogram of the head and neck was performed from the aortic arch to the vertex. Images are reviewed in the axial, sagittal, and coronal planes. 3-D MIPS images are created and assessed. IV contrast was administered without complication. All measurements were calculated based on NASCET criteria. A dose lowering technique was utilized adhering to the principles of ALARA. CT DOSE: 1404.04 mGy.cm FINDINGS: Brain parenchyma: There is age related involutional change noting mild microangiopathic disease. There is no hemorrhage, mass effect, or evidence of acute territorial ischemia by CT criteria. There is no evidence of enhancing mass lesion on the angiogram phase images. The ventricles, sulci, and cisterns are prominent secondary to involutional change. Wen-white matter differentiation is preserved. No extra-axial fluid collection is seen. Thoracic aorta: Visualized portions of the thoracic aorta are normal in caliber. The aortic arch demonstrates standard 3-vessel anatomy. Right carotid arterial system: The right common carotid artery is widely patent, as are the right internal and external carotid arteries. Left carotid arterial system: The left common carotid artery is widely patent, as are the left internal and external carotid arteries. Calcified plaque is noted in the carotid bulb. Vertebral arteries: The vertebral arteries are widely patent bilaterally and codominant in the neck. Subclavian arteries: Widely patent bilaterally. Intracranial vasculature: There is atherosclerotic calcification of the cavernous carotid and vertebral arteries. The internal carotid arteries are patent at the skull base, as are the anterior and middle cerebral arteries bilaterally. The vertebrobasilar system and posterior cerebral arteries are widely patent. There is origin of left posterior cerebral artery. The left vertebral artery is slightly dominant. There is no aneurysm, high-grade stenosis, or focal vessel cut off seen throughout the intracranial circulation. Jugular veins: Patent bilaterally. Dural sinuses: Patent. Lung apices: Partially visualized upper lobe lung parenchyma appears clear. Soft tissues: The visualized pharyngeal soft tissues are normal in appearance noting angiographic phase technique. The oropharyngeal airway appears widely patent. The salivary and thyroid glands are normal in appearance. No cervical lymphadenopathy is seen. Skeletal structures: The skeletal structures are osteopenic. The calvarium a ppears intact. The cervical spine is maintained noted multilevel spondylosis. No lytic or blastic lesion is seen. Orbits: The bony orbits are intact. Orbital contents are normal as visualized noting bilateral ocular lens implants. Sinuses and mastoids: The paranasal sinuses are clear. The mastoid air cells are well pneumatized. IMPRESSION: 1. There is no hemorrhage, mass effect, or evidence of acute territorial ischemia by CT criteria. 2. Unremarkable CT angiogram of the brain. 3. Unremarkable CT angiogram of the neck. ACT 112: Negative or not required by law. Electronically signed by: Israel Simmons M.D. 05/20/2022 8:37 PM Neck CTA 05/20/22 20:[address] OF THE BRAIN; CT ANGIOGRAM OF THE BRAIN; CT ANGIOGRAM OF THE NECK CLINICAL HISTORY: Neurological deficit. Stroke like symptoms. COMPARISON STUDY: CT of the brain dated 11/02/2017. TECHNIQUE: Unenhanced axial CT scan of the brain is performed. Subsequently, following the IV administration of 120 of Optiray 320, CT angiogram of the head and neck was performed from the aortic arch to the vertex. Images are reviewed in the axial, sagittal, and coronal planes. 3-D MIPS images are created and assessed. IV contrast was administered without complication. All measurements were calculated based on NASCET criteria. A dose lowering technique was utilized adhering to the principles of ALARA. CT DOSE: 1404.04 mGy.cm FINDINGS: Brain parenchyma: There is age related involutional change noting mild microangiopathic disease. There is no hemorrhage, mass effect, or evidence of acute territorial ischemia by CT criteria. There is no evidence of enhancing mass lesion on the angiogram phase images. The ventricles, sulci, and cisterns are prominent secondary to involutional change. Wen-white matter differentiation is preserved. No extra-axial fluid collection is seen. Thoracic aorta: Visualized portions of the thoracic aorta are normal in caliber. The aortic arch demonstrates standard 3-vessel anatomy. Right carotid arterial system: The right common carotid artery is widely patent, as are the right internal and external carotid arteries. Left carotid arterial system: The left common carotid artery is widely patent, as are the left internal and external carotid arteries. Calcified plaque is noted in the carotid bulb. Vertebral arteries: The vertebral arteries are widely patent bilaterally and codominant in the neck. Subclavian arteries: Widely patent bilaterally. Intracranial vasculature: There is atherosclerotic calcification of the cavernous carotid and vertebral arteries. The internal carotid arteries are patent at the skull base, as are the anterior and middle cerebral arteries bilaterally. The vertebrobasilar system and posterior cerebral arteries are widely patent. There is origin of left posterior cerebral artery. The left vertebral artery is slightly dominant. There is no aneurysm, high-grade stenosis, or focal vessel cut off seen throughout the intracranial circulation. Jugular veins: Patent bilaterally. Dural sinuses: Patent. Lung apices: Partially visualized upper lobe lung parenchyma appears clear. Soft tissues: The visualized pharyngeal soft tissues are normal in appearance noting angiographic phase technique. The oropharyngeal airway appears widely patent. The salivary and thyroid glands are normal in appearance. No cervical lymphadenopathy is seen. Skeletal structures: The skeletal structures are osteopenic. The calvarium appears intact. The cervical spine is maintained noted multilevel spondylosis. No lytic or blastic lesion is seen. Orbits: The bony orbits are intact. Orbital contents are normal as visualized noting bilateral ocular lens implants. Sinuses and mastoids: The paranasal sinuses are clear. The mastoid air cells are well pneumatized. IMPRESSION: 1. There is no hemorrhage, mass effect, or evidence of acute territorial ischemia by CT criteria. 2. Unremarkable CT angiogram of the brain. 3. Unremarkable CT angiogram of the neck. ACT 112: Negative or not required by law. Electronically signed by: Israel Simmons M.D. 05/20/2022 8:37 PM Discharge Plan Visit Data Chief Complaint: Stroke/CVA Symptoms Stated Complaint: stroke alert ED Provider: Phuc Malloy Discharge Problem: Cerebrovascular accident, HTN (hypertension), Acute right-sided muscle weakness, Aphasia Patient Disposition: Admitted As Inpatient Discharge Instructions Interventions: ED Discharge Assessment Last Done: 05/20/22 22:46
[2022-05-20 21:54] LABS: Appearance Urine Clear (Clear); Bilirubin Urine Negative (Negative); Blood Urine 2+ (Negative); Color Urine Yellow; Glucose Urine UA Negative (Negative); Ketones Urine Negative (Negative); Leukocyte Esterase Urine Negative (Negative); Nitrite Urine Negative (Negative); Protein Urine Negative (Negative); Specific Gravity Urine 1.024 (1.000-1.030); Urobilinogen Urine Negative (Negative); pH Urine 7.5 (4.5-7.5)
[2022-05-20 21:59] LABS: INR 1.1 (0.9-1.1); Partial Thromboplastin Ratio 0.9; Partial Thromboplastin Time 25.8 Seconds (21.0-31.0); Prothrombin Time 11.4 Seconds (9.0-12.0)
[2022-05-20] MEDS ORDERED: PHARMACIST DISCHARGE MED REC CONSULT PRN (22:06)
--- NOTE | 2022-05-20 22:06 | Critical Care Consultation ---
Date of Consultation May 20, 2022 Assessment & Plan (1) Acute stroke due to ischemia: (2) Hypertension: (3) Allergic rhinitis: (4) Left ventricular diastolic dysfunction: (5) Mild AI (aortic insufficiency): (6) Nocturnal hypoxemia: (7) Arthritis of right knee: Plan Reason Critically Ill: 76 YOM presents with onset of stroke like symptoms at 19:15. Presented with severe symptoms and NIHSS on presentation ~22. Imagining was obtained and patient was stroke alerted. He was deemed a TNKase candidate and this was administered at 21:14 this evening. Reportedly improvement in symptoms and NIHSS on assessment is 19 although difficult assessment with aphasia and inability to follow commands. For BP control will likely need infusion- follow. Neuro - Acute ischemic stroke, - Negative imaging on CT of head and CTA of head and neck - Await MRI - follow neuroglial examinations for improvement/worsening- currently with debilitating symptoms - repeat non con head CT with any change or decompensation - TNKase administration at 21:15- hold asa until CT head completed 24 hours post - Continue high dose statin - BP control post TNKase- SBP <180/105- if needing continual pushes will start on cardene infusion goal 140-180 - ECHO with bubble study in morning - Patient is compliant with his CPAP at home- normally wears CPAP 6CM H20 - Telemetry while in house- eval for dysrhythmia- consider extended monitoring at discharge to identify any afib/flutter - No significant stenosis or ICAD noted on imaging - PT/OT consultation appreciated - Neurological consultation appreciated - 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 Cardiac - HTN, HLD, HFpEF - as above- await 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 evaluation prior to resuming oral medications - goal BP as above Respiratory - KASEY/Nocturnal hypoxia - cigar smoker occassionally - is compliant with CPAP as above - hold CPAP at this time with his facial droop and inability to communicate GI - GERD/Dyspepsia - Continue IV famotidine RENAL/LYTES - No acute renal needs/ Hypokalemia - replete electrolytes per ICU protocol - LUTS - Olson in place - hold tamsulozosin ENDO - DM II not on therapy - HGB A1C in morning - BG goal <180mg/dl - insulin sliding scale HEME - No acute needs ID - no infectious etiology noted at this time LINES/IV ACCESS - PIV, Olson Catheter Continue use of these lines DVT PROPHYLAXIS - SCDS, chemical prophylaxis at this time contraindicated 24 hours post TNKAase DISPO: ICU 24 hours post TNKase administration I have personally spent 50 minutes of critical care time in the direct management of this patient. This is a life/limb threatening event. This includes time spent evaluating patient, direct bedside care, chart review, placing orders, interpretation of diagnostic studies, discussion with consultants, patient, and family members, as well as other required patient management activities. This time is exclusive of all separately billable procedures, and teaching time and separate from and in addition to any other critical care service time. Thank you for allowing us to participate in the care of this patient. Please refer to my attending physician's documentation for any further recommendations. Supervising Physician Co-Signing Physician Notes Patient seen and examined. MAR reviewed. Discussed with critical care OSMANY. Agree with assessment plan as noted. Please refer to my progress note from 05/21/2022 for additional details History of Present Illness Reason for Consultation: Stroke like symptoms s/p TNKase administration at 21:14 Requesting Physician: Isai Duncan MD Attending Physician: Isai Duncan MD History of Present Illness 76 YOM with medical history of: KASEY compliant with CPAP 6cmH20, HTN, HLD, allergic rhinitis, HFpEF Grade II diastolic dysfunction, mild- moderate aortic regurge (ECHO 2020), hernia repair, and urinary retention. Patient was brought to the EMD today via EMS for onset of stroke like symptoms starting at 19:15. The patient is accompanied by his daughters and son in law. Reportedly they were over having dinner at the daughter's house and he went up to go into the kitchen and appeared to be having trouble getting words out as well noticed right sided facial droop. EMS was called and by the time they got to the patient family endorses that the patient had progression of symptoms to right arm and leg weakness, worsening of right facial droop, remained aphasic, as well as neglecting vision on the right side. In the EMD the patient arrived as stroke alert and had CT head and CTA of the head and neck performed, that was negative for any LVO/bleed/mass , no significant stenosis or ICAD. He also arrived hypertensive up to the 200s. He has received 2 doses of Labetalol 10mg and one dose of Hydralazine 5mg IV. Patient was deemed a TNKase candidate by telestroke and that was administered at 21:14. Following administration reportedly the patient had improvement in ability to move his right arm and right leg, left side remains unaffected, he remains likely globally aphasic as his ability to follow commands for the exam is limited. He appears to still have right sided vision loss as well. Facial droop also remains. Patient will be admitted to the ICU for following of neurological examinations, stabilization of hemodynamics, await MRI. CT scan 24 hours post TNKase or with any change. COVID test on admission is: NEGATIVE Allergies Allergy/AdvReac Type Severity Reaction Status Date / Time No Known Drug Allergies Allergy Verified 03/22/22 11:34 Home Medications Medication Instructions Recorded Confirmed Type famotidine 20 mg tablet 20 mg PO Q2D 05/13/20 03/22/22 History azelastine 205.5 mcg (0.15 %) 2 spray intranasal BID PRN sinus 01/01/21 03/22/22 Rx nasal spray congestion #30 mL fluticasone propionate 50 2 spray intranasal BID PRN sinus 01/01/21 03/22/22 Rx mcg/actuation nasal congestion #16 grams spray,suspension (Flonase Allergy Relief) sildenafil 100 mg tablet 100 mg PO DAILY PRN sexual 01/01/21 03/22/22 Rx activity #36 tabs atorvastatin 80 mg tablet 80 mg PO QAM #90 tabs 10/15/21 03/22/22 Rx hydrochlorothiazide 25 mg tablet 25 mg PO QAM #90 tabs 10/15/21 03/22/22 Rx montelukast 10 mg tablet 10 mg PO QAM #90 tabs 11/04/21 03/22/22 Rx amoxicillin 875 mg-potassium 1 tab PO BID 10 days #20 tabs 03/22/22 03/22/22 Rx clavulanate 125 mg tablet ropinirole 0.5 mg tablet 1 mg PO DAILY 03/22/22 History tamsulosin 0.4 mg capsule cap PO 03/22/22 03/22/22 History olmesartan 40 mg tablet 40 mg PO DAILY #90 tabs 05/16/22 Rx Patient History Medical History (Updated 05/21/22 @ 05:45 by Isai Duncan MD) Cardiac murmur Mild to moderate AR on 05/20/20 ECHO Follows only with cardio PRN GERD (gastroesophageal reflux disease) Well controlled and stable Hearing loss No hearing aids History of anesthesia reaction Lap hernia repair 05/2018 had urinary retention- olson catheter placed- no issues with other surgeries History of fainting NOV 2017- near syncope - had OP eval by neurology and cardiology, ruled vasovagal, no additional w/u needed-NO RECENT ISSUES History of skin cancer S/p removal Hyperlipidemia Hypertension Restless leg syndrome Mild/occasionally Sleep apnea cpap Surgical History History of arthroscopy of right knee History of cataract surgery bilateral History of colonoscopy with polypectomy History of hernia repair X2 S/P laparoscopic hernia repair ventral hernia repair with mesh Family History Father Leukemia Grandfather (Maternal) Myocardial infarction Mother Hearing loss Other No family history of adverse response to anesthesia No family history of bleeding disorder Denies family history of Ovarian cancer Prostate cancer Breast cancer Colorectal cancer Social History Smoking Status: Unknown if ever smoked Tobacco Type: Cigars Cigarettes Per Day: 1 CIGAR A WEEK; Second Hand Exposure: Yes (Parents SMOKED); Hx Alcohol Use: Yes Alcohol type: beer Alcohol Intake Frequency: 4 or More x per/Week Alcohol Intake Frequency Comment: 1 or 2 drinks a day Hx Substance Use: No Preferred Language: Slovak Communication Ability: Impaired Communication Ability Comment: aphasia Visual Impairment: No Limitations Hearing Ability: Normal Sheet Manufacturing Supervisor Required: No Beliefs That Will Affect Care: None marital status: Current Living Situation: Spouse current occupational status: retired Other Information That Helps Us Care for You: No Feels Safe at Home: Yes Safety Concerns: Feels Safe At This Time Childhood Exposure to Second-Hand Smoke: Yes Dental Care, Regularly: Yes Physical Activity Frequency: 1-2 Times per Week Physical Activity Frequency Comment: therapy; 60 mins Seatbelt Use: always Sunscreen Use: Yes Assistive Devices: CPAP Review of Systems Review of Systems: REVIEW OF SYSTEMS: Obtained from family and chart review Constitutional: No fever, sweats or chills Eyes:(+) right sided visual neglect ENT: (+) right sided facial droop, normal hearing, no trouble swallowing at baseline Respiratory: No cough, sputum, dyspnea at rest or on exertion Cardiovascular: No chest pain, tightness or palpitations Abdomen: (+) recent hernia repair, Bloating/GERD, No pain, nausea, vomiting, diarrhea or constipation Musculoskeletal: (+) joint pain history of TKA, No swelling Neurologic: (+) weakness, numbness/tingling, balance problems Skin: No rash or itch Physical Exam Physical Exam: PHYSICAL EXAM: General: awake, alert, Head: Normocephalic, atraumatic Neuro: AAO x 1, speech aphasic, strength intact left side bilaterally 5/5, right upper extremity 3/5 with drift, right lower leg 5/5 without drift, ataxia to right upper arm, visual neglect likely on right as does not react to threat, right sided facial droop, does withdraw to pain on left and right lower extremities- NIHSS 19 following TNKase Chest: equal rise and fall of the chest, no accessory muscle use, no heaves or thrills, Clear to auscultation, on room air, Cardiac: Regular rate and rhythm, telemetry reviewed- NSR, skin warm dry, cap refill <3 seconds, peripheral pulses +2 no JVD, grade II systolic murmur best heart RSB, no edema GI: NABS x 4 quadrants, soft, nontender to palpation, no rebound, guarding or tenderness : olson to gravity draining light jorge urine Skin: no rash or erythema Results & Data Results & Data ([facility]) Vital Signs (Past 12 Hours) Vital Signs Temp Pulse Pulse Resp BP BP Pulse Ox 05/20/22 21:30 66 24 182/98 H 98 05/20/22 21:25 64 24 170/76 H 99 05/20/22 21:20 65 28 H 174/83 H 99 05/20/22 21:18 63 14 180/73 H 97 05/20/22 21:11 64 19 175/108 H 94 05/20/22 21:04 68 19 182/85 H 94 05/20/22 21:00 66 23 187/79 H 97 05/20/22 20:56 75 26 H 187/74 H 73 L 05/20/22 20:50 81 27 H 224/90 H 97 05/20/22 20:46 81 21 210/83 H 97 05/20/22 20:37 83 21 186/91 H 79 L 05/20/22 20:34 82 24 05/20/22 21:44 64 18 190/73 H 95 05/20/22 21:29 66 18 182/98 H 99 05/20/22 21:14 64 18 174/83 H 99 05/20/22 20:36 37.0 C 82 18 186/91 H 99 O2 Del Method 05/20/22 21:30 05/20/22 21:25 05/20/22 21:20 05/20/22 21:18 05/20/22 21:11 05/20/22 21:04 05/20/22 21:00 05/20/22 20:56 05/20/22 20:50 05/20/22 20:46 05/20/22 20:37 05/20/22 20:34 05/20/22 21:44 Room Air 05/20/22 21:29 Room Air 05/20/22 21:14 Room Air 05/20/22 20:36 Room Air Laboratory Results Abnormal lab results 05/20/22 05/20/22 05/20/22 Range/Units 20:38 20:38 21:35 RBC 4.64 L (4.70-6.10) M/uL Hgb 12.6 L (14.0-18.0) g/dl Hct 38.1 L (42.0-52.0) % MPV 8.9 L (9.4-12.4) fL Potassium 3.1 L (3.5-5.1) mmol/L Globulin 2.3 L (2.5-4.0) gm/dl Urine Blood 2+ H (Negative) Urine WBC (Auto) 5-10 H (0-5) /hpf Urine RBC (Auto) 5-10 H (0-4) /hpf Calcium Oxalate Crystal Present A (None Prsent) Diagnostic Findings Head CT 05/20/22 20:[address] OF THE BRAIN; CT ANGIOGRAM OF THE BRAIN; CT ANGIOGRAM OF THE NECK CLINICAL HISTORY: Neurological deficit. Stroke like symptoms. COMPARISON STUDY: CT of the brain dated 11/02/2017. TECHNIQUE: Unenhanced axial CT scan of the brain is performed. Subsequently, following the IV administration of 120 of Optiray 320, CT angiogram of the head and neck was performed from the aortic arch to the vertex. Images are reviewed in the axial, sagittal, and coronal planes. 3-D MIPS images are created and assessed. IV contrast was administered without complication. All measurements were calculated based on NASCET criteria. A dose lowering technique was utilized adhering to the principles of ALARA. CT DOSE: 1404.04 mGy.cm FINDINGS: Brain parenchyma: There is age related involutional change noting mild micr oangiopathic disease. There is no hemorrhage, mass effect, or evidence of acute territorial ischemia by CT criteria. There is no evidence of enhancing mass lesion on the angiogram phase images. The ventricles, sulci, and cisterns are prominent secondary to involutional change. Wen-white matter differentiation is preserved. No extra-axial fluid collection is seen. Thoracic aorta: Visualized portions of the thoracic aorta are normal in caliber. The aortic arch demonstrates standard 3-vessel anatomy. Right carotid arterial system: The right common carotid artery is widely patent, as are the right internal and external carotid arteries. Left carotid arterial system: The left common carotid artery is widely patent, as are the left internal and external carotid arteries. Calcified plaque is noted in the carotid bulb. Vertebral arteries: The vertebral arteries are widely patent bilaterally and codominant in the neck. Subclavian arteries: Widely patent bilaterally. Intracranial vasculature: There is atherosclerotic calcification of the cavernous carotid and vertebral arteries. The internal carotid arteries are patent at the skull base, as are the anterior and middle cerebral arteries bilaterally. The vertebrobasilar system and posterior cerebral arteries are widely patent. There is origin of left posterior cerebral artery. The left vertebral artery is slightly dominant. There is no aneurysm, high-grade stenosis, or focal vessel cut off seen throughout the intracranial circulation. Jugular veins: Patent bilaterally. Dural sinuses: Patent. Lung apices: Partially visualized upper lobe lung parenchyma appears clear. Soft tissues: The visualized pharyngeal soft tissues are normal in appearance noting angiographic phase technique. The oropharyngeal airway appears widely patent. The salivary and thyroid glands are normal in appearance. No cervical lymphadenopathy is seen. Skeletal structures: The skeletal structures are osteopenic. The calvarium appears intact. The cervical spine is maintained noted multilevel spondylosis. No lytic or blastic lesion is seen. Orbits: The bony orbits are intact. Orbital contents are normal as visualized noting bilateral ocular lens implants. Sinuses and mastoids: The paranasal sinuses are clear. The mastoid air cells are well pneumatized. IMPRESSION: 1. There is no hemorrhage, mass effect, or evidence of acute territorial ischemia by CT criteria. 2. Unremarkable CT angiogram of the brain. 3. Unremarkable CT angiogram of the neck. ACT 112: Negative or not required by law. Electronically signed by: Israel Simmons M.D. 05/20/2022 8:37 PM Head CTA 05/20/22 20:[address] OF THE BRAIN; CT ANGIOGRAM OF THE BRAIN; CT ANGIOGRAM OF THE NECK CLINICAL HISTORY: Neurological deficit. Stroke like symptoms. COMPARISON STUDY: CT of the brain dated 11/02/2017. TECHNIQUE: Unenhanced axial CT scan of the brain is performed. Subsequently, following the IV administration of 120 of Optiray 320, CT angiogram of the head and neck was performed from the aortic arch to the vertex. Images are reviewed in the axial, sagittal, and coronal planes. 3-D MIPS images are created and assessed. IV contrast was administered without complication. All measurements were calculated based on NASCET criteria. A dose lowering technique was utilized adhering to the principles of ALARA. CT DOSE: 1404.04 mGy.cm FINDINGS: Brain parenchyma: There is age related involutional change noting mild microangiopathic disease. There is no hemorrhage, mass effect, or evidence of acute territorial ischemia by CT criteria. There is no evidence of enhancing mass lesion on the angiogram phase images. The ventricles, sulci, and cisterns are prominent secondary to involutional change. Wen-white matter differentiation is preserved. No extra-axial fluid collection is seen. Thoracic aorta: Visualized portions of the thoracic aorta are normal in caliber. The aortic arch demonstrates standard 3-vessel anatomy. Right carotid arterial system: The right common carotid artery is widely patent, as are the right internal and external carotid arteries. Left carotid arterial system: The left common carotid artery is widely patent, as are the left internal and external carotid arteries. Calcified plaque is noted in the carotid bulb. Vertebral arteries: The vertebral arteries are widely patent bilaterally and codominant in the neck. Subclavian arteries: Widely patent bilaterally. Intracranial vasculature: There is atherosclerotic calcification of the cavernous carotid and vertebral arteries. The internal carotid arteries are patent at the skull base, as are the anterior and middle cerebral arteries bilaterally. The vertebrobasilar system and posterior cerebral arteries are widely patent. There is origin of left posterior cerebral artery. The left vertebral artery is slightly dominant. There is no aneurysm, high-grade stenosis, or focal vessel cut off seen throughout the intracranial circulation. Jugular veins: Patent bilaterally. Dural sinuses: Patent. Lung apices: Partially visualized upper lobe lung parenchyma appears clear. Soft tissues: The visualized pharyngeal soft tissues are normal in appearance noting angiographic phase technique. The oropharyngeal airway appears widely patent. The salivary and thyroid glands are normal in appearance. No cervical lymphadenopathy is seen. Skeletal structures: The skeletal structures are osteopenic. The calvarium appears intact. The cervical spine is maintained noted multilevel spondylosis. No lytic or blastic lesion is seen. Orbits: The bony orbits are intact. Orbital contents are normal as visualized noting bilateral ocular lens implants. Sinuses and mastoids: The paranasal sinuses are clear. The mastoid air cells are well pneumatized. IMPRESSION: 1. There is no hemorrhage, mass effect, or evidence of acute territorial ischemia by CT criteria. 2. Unremarkable CT angiogram of the brain. 3. Unremarkable CT angiogram of the neck. ACT 112: Negative or not required by law. Electronically signed by: Israel Simmons M.D. 05/20/2022 8:37 PM Neck CTA 05/20/22 20:[address] OF THE BRAIN; CT ANGIOGRAM OF THE BRAIN; CT ANGIOGRAM OF THE NECK CLINICAL HISTORY: Neurological deficit. Stroke like symptoms. COMPARISON STUDY: CT of the brain dated 11/02/2017. TECHNIQUE: Unenhanced axial CT scan of the brain is performed. Subsequently, following the IV administration of 120 of Optiray 320, CT angiogram of the head and neck was performed from the aortic arch to the vertex. Images are reviewed in the axial, sagittal, and coronal planes. 3-D MIPS images are created and assessed. IV contrast was administered without complication. All measurements were calculated based on NASCET criteria. A dose lowering technique was utilized adhering to the principles of ALARA. CT DOSE: 1404.04 mGy.cm FINDINGS: Brain parenchyma: There is age related involutional change noting mild microangiopathic disease. There is no hemorrhage, mass effect, or evidence of acute territorial ischemia by CT criteria. There is no evidence of enhancing mass lesion on the angiogram phase images. The ventricles, sulci, and cisterns are prominent secondary to involutional change. Wen-white matter differentiation is preserved. No extra-axial fluid collection is seen. Thoracic aorta: Visualized portions of the thoracic aorta are normal in caliber. The aortic arch demonstrates standard 3-vessel anatomy. Right carotid arterial system: The right common carotid artery is widely patent, as are the right internal and external carotid arteries. Left carotid arterial system: The left common carotid artery is widely patent, as are the left internal and external carotid arteries. Calcified plaque is noted in the carotid bulb. Vertebral arteries: The vertebral arteries are widely patent bilaterally and codominant in the neck. Subclavian arteries: Widely patent bilaterally. Intracranial vasculature: There is atherosclerotic calcification of the cavernous carotid and vertebral arteries. The internal carotid arteries are patent at the skull base, as are the anterior and middle cerebral arteries bilaterally. The vertebrobasilar system and posterior cerebral arteries are widely patent. There is origin of left posterior cerebral artery. The left vertebral artery is slightly dominant. There is no aneurysm, high-grade stenosis, or focal vessel cut off seen throughout the intracranial circulation. Jugular veins: Patent bilaterally. Dural sinuses: Patent. Lung apices: Partially visualized upper lobe lung parenchyma appears clear. Soft tissues: The visualized pharyngeal soft tissues are normal in appearance noting angiographic phase technique. The oropharyngeal airway appears widely patent. The salivary and thyroid glands are normal in appearance. No cervical lymphadenopathy is seen. Skeletal structures: The skeletal structures are osteopenic. The calvarium appears intact. The cervical spine is maintained noted multilevel spondylosis. No lytic or blastic lesion is seen. Orbits: The bony orbits are intact. Orbital contents are normal as visualized noting bilateral ocular lens implants. Sinuses and mastoids: The paranasal sinuses are clear. The mastoid air cells are well pneumatized. IMPRESSION: 1. There is no hemorrhage, mass effect, or evidence of acute territorial ischemia by CT criteria. 2. Unremarkable CT angiogram of the brain. 3. Unremarkable CT angiogram of the neck. ACT 112: Negative or not required by law. Electronically signed by: Israel Simmons M.D. 05/20/2022 8:37 PM Medications Administered Discontinued Medications Tenecteplase 22 mg/ Syringe 4.4 mls @ 52.8 mls/min IV NOW ONE; Protocol Stop: 05/20/22 21:22 Last Admin: 05/20/22 21:14 Dose: 52.8 mls/min Documented By: BS Co-signed By: TYRONE Ioversol (Optiray 320 500ml) 120 ml IV ONCE ONE Stop: 05/20/22 20:30 Last Admin: 05/20/22 20:29 Dose: 120 ml Documented By: SERA Labetalol HCl (Labetalol Hcl Iv 5 Mg/Ml 20ml) 10 mg IV NOW STA Stop: 05/20/22 20:48 Last Admin: 05/20/22 20:51 Dose: 10 mg Documented By: ISAIAH Co-signed By: TYRONE Labetalol HCl (Labetalol Hcl Iv 5 Mg/Ml 20ml) 10 mg IV NOW STA Stop: 05/20/22 21:04 Last Admin: 05/20/22 21:52 Dose: Not Given Documented By: ISAIAH Labetalol HCl (Labetalol Hcl Iv 5 Mg/Ml 20ml) 10 mg IV NOW STA Stop: 05/20/22 21:13 Last Admin: 05/20/22 21:52 Dose: Not Given Documented By: ISAIAH Sodium Chloride (Sodium Chloride 0.9% 10ml Flush) 20 ml IV NOW STA Stop: 05/20/22 21:11 Last Admin: 05/20/22 21:14 Dose: 20 ml Documented By: ISAIAH ECG Additional Comments: Normal sinus rhythm with sinus arrhythmia Left axis deviation Inferior infarct , age undetermined Abnormal ECG When compared with ECG of 07-OCT-2020 09:10, Vent. rate has increased BY 35 BPM Nonspecific T wave abnormality now evident in Anterior leads Coding Level of Care Code Critical Care 1st 30-74 mins Diagnoses Acute stroke due to ischemia I63.9 Hypertension I10 Allergic rhinitis J30.9 Left ventricular diastolic dysfunction I51.9 Mild AI (aortic insufficiency) I35.1 Nocturnal hypoxemia G47.34 Arthritis of right knee M17.11
[2022-05-20 22:07] LABS: Bacteria Urine Automated Negative (Negative); Calcium Oxalate Crystals Urine Present (None Prsent); Cast Urine Automated 0 /lpf (0-5); Epithelial Cell Urine Auto 0-5 /lpf (0-5)
--- NOTE | 2022-05-20 22:18 | History & Physical Report ---
Date of Service May 20, 2022 Assessment & Plan (1) Acute stroke due to ischemia: (2) Hyperlipidemia: (3) Hypertension: (4) Allergic rhinitis: (5) Anxiety: (6) Left ventricular diastolic dysfunction: (7) Mild AI (aortic insufficiency): (8) Mild mitral regurgitation: (9) Moderate obstructive sleep apnea: (10) Restless leg syndrome: (11) Prediabetes: (12) Hypertension: (13) Hyperlipidemia: (14) GERD (gastroesophageal reflux disease): Plan Acute stroke/right facial droop/right arm and leg weakness- Status post TNK begun in the ED The patient will be admitted to the ICU for serial cardiac enzymes, serial EKG's, cardiac rhythm monitoring and a 2-D echocardiogram with Dopplers. 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 According to the family, he was walking across the room and had the sudden onset of garbled speech, right facial droop and discoordination. At the time, he had total paralysis of his right arm and leg. They called EMS, and patient was made a stroke alert prior to arrival. Primary Care Provider: Stanford Marcano DO The patient is a 76-year-old male with a past medical history including hyperlipidemia, hypertension, allergic rhinitis, anxiety, arthritis, chronic rhinitis, LVH, left inguinal hernia, LV dysfunction, erectile dysfunction, mild aortic insufficiency, mild mitral regurgitation, nasal polyps, PVCs, rosacea, moderate KASEY, nasal septal deviation, RLS, right knee osteoarthritis with TKA, and prediabetes. The patient presented to the emergency department as noted above. Work-up in the emergency department for the CT head, CTA head and neck all of which were negative. Patient was then determined to be a candidate for TNK, and IV administration TNK was begun. Patient did start to have relatively quick partial improvement in right upper extremity strength, and attempted to speak but had difficulty with speech. Allergies Allergy/AdvReac Type Severity Reaction Status Date / Time No Known Drug Allergies Allergy Verified 03/22/22 11:34 Home Medications Medication Instructions Recorded Confirmed Type famotidine 20 mg tablet 20 mg PO Q2D 05/13/20 03/22/22 History azelastine 205.5 mcg (0.15 %) 2 spray intranasal BID PRN sinus 01/01/21 03/22/22 Rx nasal spray congestion #30 mL fluticasone propionate 50 2 spray intranasal BID PRN sinus 01/01/21 03/22/22 Rx mcg/actuation nasal congestion #16 grams spray,suspension (Flonase Allergy Relief) sildenafil 100 mg tablet 100 mg PO DAILY PRN sexual 01/01/21 03/22/22 Rx activity #36 tabs atorvastatin 80 mg tablet 80 mg PO QAM #90 tabs 10/15/21 03/22/22 Rx hydrochlorothiazide 25 mg tablet 25 mg PO QAM #90 tabs 10/15/21 03/22/22 Rx montelukast 10 mg tablet 10 mg PO QAM #90 tabs 11/04/21 03/22/22 Rx amoxicillin 875 mg-potassium 1 tab PO BID 10 days #20 tabs 03/22/22 03/22/22 Rx clavulanate 125 mg tablet ropinirole 0.5 mg tablet 1 mg PO DAILY 03/22/22 History tamsulosin 0.4 mg capsule cap PO 03/22/22 03/22/22 History olmesartan 40 mg tablet 40 mg PO DAILY #90 tabs 05/16/22 Rx Past Med/Surg History Medical History (Updated 05/21/22 @ 05:45 by Isai Duncan MD) Cardiac murmur Mild to moderate AR on 05/20/20 ECHO Follows only with cardio PRN GERD (gastroesophageal reflux disease) Well controlled and stable Hearing loss No hearing aids History of anesthesia reaction Lap hernia repair 05/2018 had urinary retention- olson catheter placed- no issues with other surgeries History of fainting NOV 2017- near syncope - had OP eval by neurology and cardiology, ruled vasovagal, no additional w/u needed-NO RECENT ISSUES History of skin cancer S/p removal Hyperlipidemia Hypertension Restless leg syndrome Mild/occasionally Sleep apnea cpap Surgical History History of arthroscopy of right knee History of cataract surgery bilateral History of colonoscopy with polypectomy History of hernia repair X2 S/P laparoscopic hernia repair ventral hernia repair with mesh Family History Father Leukemia Grandfather (Maternal) Myocardial infarction Mother Hearing loss Other No family history of adverse response to anesthesia No family history of bleeding disorder Denies family history of Ovarian cancer Prostate cancer Breast cancer Colorectal cancer Social History Smoking Status: Unknown if ever smoked Tobacco Type: Cigars Cigarettes Per Day: 1 CIGAR A WEEK; Second Hand Exposure: Yes (Parents SMOKED); Hx Alcohol Use: Yes Alcohol type: beer Alcohol Intake Frequency: 4 or More x per/Week Alcohol Intake Frequency Comment: 1 or 2 drinks a day Hx Substance Use: No Preferred Language: Telugu Communication Ability: Impaired Communication Ability Comment: aphasia Visual Impairment: No Limitations Hearing Ability: Normal Fresh Foods Clerk Required: No Beliefs That Will Affect Care: None marital status: Current Living Situation: Spouse current occupational status: retired Other Information That Helps Us Care for You: No Feels Safe at Home: Yes Safety Concerns: Feels Safe At This Time Childhood Exposure to Second-Hand Smoke: Yes Dental Care, Regularly: Yes Physical Activity Frequency: 1-2 Times per Week Physical Activity Frequency Comment: therapy; 60 mins Seatbelt Use: always Sunscreen Use: Yes Assistive Devices: CPAP Review of Systems Review of Systems: The patient's family answered for the patient. They denied that he had chest pain, palpitations, shortness of breath, dyspnea on exertion, cough, lower extremity swelling, sore throat, fevers, chills, sweats, weight change, fatigue, nausea, vomiting, diarrhea , constipation, abdominal pain, pelvic pain, blood in urine or stool, dysuria, urinary frequency or urgency, lightheadedness, dizziness, headache, memory loss, loss of consciousness, rash, abnormal bruising or bleeding, imbalance, focal or generalized weakness, numbness or tingling in arms or legs, generalized arthralgias or myalgias, back or neck pain, or night sweats prior to this event. After the event, they noted his difficulty with speech, paralysis of right arm and leg, and facial droop. The review of systems is otherwise negative other than for that already noted above, and at least 10 systems have been reviewed. Physical Exam Physical Exam: The patient is awake, alert, right facial droop, lying in bed and in no acute distress. HEENT--PERRL, EOMI, mucous membranes and oropharynx mildly dry. Neck--supple. No JVD. No bruits. Thyroid normal, trachea midline, no adenopathy. Heart--normal S1 and S2. No murmurs, rubs or gallops. Lungs--clear bilaterally, no respiratory distress, no accessory muscle use. Abdomen--normal bowel sounds and soft. Nontender. Nondistended, no hernias or masses, no organomegaly. Extremities--no cyanosis or clubbing. No edema. There are good distal pulses b/l. Dermatologic--normal skin turgor, normal color, no abnormal lymph nodes, no rash. Neurologic--exam limited due to acute CVA. Right facial droop evident, and right-sided weakness present Rheumatologic--left arm and leg normal. Right arm and leg 4+ 5 in my exam after being given TNK Psychiatric--intermittently anxious/depressed when having difficulty with attempting speech Results & Data Results & Data ([facility]) Vital Signs (Past 12 Hours) Vital Signs Temp Pulse Pulse Resp BP BP Pulse Ox 05/20/22 20:34 81 05/20/22 21:30 66 24 182/98 H 98 05/20/22 21:25 64 24 170/76 H 99 05/20/22 21:20 65 28 H 174/83 H 99 05/20/22 21:18 63 14 180/73 H 97 05/20/22 21:11 64 19 175/108 H 94 05/20/22 21:04 68 19 182/85 H 94 05/20/22 21:00 66 23 187/79 H 97 05/20/22 20:56 75 26 H 187/74 H 73 L 05/20/22 20:50 81 27 H 224/90 H 97 05/20/22 20:46 81 21 210/83 H 97 05/20/22 20:37 83 21 186/91 H 79 L 05/20/22 20:34 82 24 05/20/22 21:44 64 18 190/73 H 95 05/20/22 21:29 66 18 182/98 H 99 05/20/22 21:14 64 18 174/83 H 99 05/20/22 20:36 37.0 C 82 18 186/91 H 99 O2 Del Method 05/20/22 20:34 05/20/22 21:30 05/20/22 21:25 05/20/22 21:20 05/20/22 21:18 05/20/22 21:11 05/20/22 21:04 05/20/22 21:00 05/20/22 20:56 05/20/22 20:50 05/20/22 20:46 05/20/22 20:37 05/20/22 20:34 05/20/22 21:44 Room Air 05/20/22 21:29 Room Air 05/20/22 21:14 Room Air 05/20/22 20:36 Room Air Laboratory Results Laboratory Results WBC 5.33 K/ul (4.8-10.8) 05/20/22 20:38 RBC 4.64 M/uL (4.70-6.10) L 05/20/22 20:38 Hgb 12.6 g/dl (14.0-18.0) L 05/20/22 20:38 Hct 38.1 % (42.0-52.0) L 05/20/22 20:38 MCV 82.1 fL (80.0-100.0) 05/20/22 20:38 MCH 27.2 pg (25.0-34.0) 05/20/22 20:38 MCHC 33.1 g/dL (32.0-36.0) 05/20/22 20:38 RDW Std Deviation 41.3 fL (36.4-46.3) 05/20/22 20:38 RDW Coeff of Severo 14.1 % (11.5-14.5) 05/20/22 20:38 Plt Count 188 K/uL (130-400) 05/20/22 20:38 MPV 8.9 fL (9.4-12.4) L 05/20/22 20:38 Immature Gran % (Auto) 0.4 % 05/20/22 20:38 Neut % (Auto) 46.4 % 05/20/22 20:38 Lymph % (Auto) 43.2 % 05/20/22 20:38 Dane % (Auto) 7.7 % 05/20/22 20:38 Eos % (Auto) 2.1 % 05/20/22 20:38 Baso % (Auto) 0.2 % 05/20/22 20:38 Neut # (Auto) 2.48 K/uL (1.40-6.50) 05/20/22 20:38 Lymph # (Auto) 2.30 K/uL (1.2-3.4) 05/20/22 20:38 Dane # (Auto) 0.41 K/uL (0.11-0.59) 05/20/22 20:38 Eos # (Auto) 0.11 K/uL (0-0.50) 05/20/22 20:38 Baso # (Auto) 0.01 K/uL (0-0.2) 05/20/22 20:38 Immature Gran # (Auto) 0.02 K/uL (0.01-0.20) 05/20/22 20:38 PT 11.4 Seconds (9.0-12.0) 05/20/22 20:38 INR 1.1 (0.9-1.1) 05/20/22 20:38 APTT 25.8 Seconds (21.0-31.0) 05/20/22 20:38 PTT Ratio 0.9 05/20/22 20:38 Sodium 137 mmol/L (136-145) 05/20/22 20:38 Potassium 3.1 mmol/L (3.5-5.1) L 05/20/22 20:38 Chloride 104 mmol/L (98-107) 05/20/22 20:38 Carbon Dioxide 23 mmol/L (21-32) 05/20/22 20:38 Anion Gap 10 (3-11) 05/20/22 20:38 BUN 11 mg/dl (6-23) 05/20/22 20:38 Creatinine 0.85 mg/dl (0.6-1.4) 05/20/22 20:38 Est Cr Clr Drug Dosing 78.6 ml/min 05/20/22 20:38 Est GFR ( Amer) 98.8 ml/min 05/20/22 20:38 Est GFR (Non-Af Amer) 85.2 ml/min 05/20/22 20:38 BUN/Creatinine Ratio 12.9 (10-20) 05/20/22 20:38 Glucose 95 mg/dl (70-99(Fasting)) 05/20/22 20:38 Calcium 9.1 mg/dl (8.5-10.1) 05/20/22 20:38 Magnesium 2.0 mg/dl (1.7-2.4) 05/20/22 20:38 Total Bilirubin 0.7 mg/dl (0.2-1.0) 05/20/22 20:38 AST 24 U/L (13-39) 05/20/22 20:38 ALT 26 U/L (7-52) 05/20/22 20:38 Alkaline Phosphatase 71 U/L (34-104) 05/20/22 20:38 Troponin I High Sens 8.6 pg/ml (0-20) 05/20/22 20:38 Total Protein 6.3 gm/dl (6.0-8.3) 05/20/22 20:38 Albumin 4.0 gm/dl (3.4-5.0) 05/20/22 20:38 Globulin 2.3 gm/dl (2.5-4.0) L 05/20/22 20:38 Albumin/Globulin Ratio 1.7 (0.9-2) 05/20/22 20:38 Urine Color Yellow 05/20/22 21:35 Urine Appearance Clear (Clear) 05/20/22 21:35 Urine pH 7.5 (4.5-7.5) 05/20/22 21:35 Ur Specific [place] 1.024 (1.000-1.030) 05/20/22 21:35 Urine Protein Negative (Negative) 05/20/22 21:35 Urine Glucose (UA) Negative (Negative) 05/20/22 21:35 Urine Ketones Negative (Negative) 05/20/22 21:35 Urine Blood 2+ (Negative) H 05/20/22 21:35 Urine Nitrite Negative (Negative) 05/20/22 21:35 Urine Bilirubin Negative (Negative) 05/20/22 21:35 Urine Urobilinogen Negative (Negative) 05/20/22 21:35 Ur Leukocyte Esterase Negative (Negative) 05/20/22 21:35 Urine WBC (Auto) 5-10 /hpf (0-5) H 05/20/22 21:35 Urine RBC (Auto) 5-10 /hpf (0-4) H 05/20/22 21:35 U Hyaline Cast (Auto) 0 /lpf (0-5) 05/20/22 21:35 U Epithel Cells (Auto) 0-5 /lpf (0-5) 05/20/22 21:35 Urine Bacteria (Auto) Negative (Negative) 05/20/22 21:35 Calcium Oxalate Crystal Present (None Prsent) A 05/20/22 21:35 Nasal Screen MRSA (PCR) Negative (Negative) 05/20/22 23:10 SARS-CoV-2, RNA, NAAT NEGATIVE (NEGATIVE) 05/20/22 21:17 Blood Type O Positive 05/20/22 20:38 Antibody Screen NEGATIVE 05/20/22 20:[address] 05/20/22 20:[address] OF THE BRAIN; CT ANGIOGRAM OF THE BRAIN; CT ANGIOGRAM OF THE NECK CLINICAL HISTORY: Neurological deficit. Stroke like symptoms. COMPARISON STUDY: CT of the brain dated 11/02/2017. TECHNIQUE: Unenhanced axial CT scan of the brain is performed. Subsequently, following the IV administration of 120 of Optiray 320, CT angiogram of the head and neck was performed from the aortic arch to the vertex. Images are reviewed in the axial, sagittal, and coronal planes. 3-D MIPS images are created and assessed. IV contrast was administered without complication. All measurements were calculated based on NASCET criteria. A dose lowering technique was utilized adhering to the principles of ALARA. CT DOSE: 1404.04 mGy.cm FINDINGS: Brain parenchyma: There is age related involutional change noting mild microangiopathic disease. There is no hemorrhage, mass effect, or evidence of acute territorial ischemia by CT criteria. There is no evidence of enhancing mass lesion on the angiogram phase images. The ventricles, sulci, and cisterns are prominent secondary to involutional change. Wen-white matter differentiation is preserved. No extra-axial fluid collection is seen. Thoracic aorta: Visualized portions of the thoracic aorta are normal in caliber. The aortic arch demonstrates standard 3-vessel anatomy. Right carotid arterial system: The right common carotid artery is widely patent, as are the right internal and external carotid arteries. Left carotid arterial system: The left common carotid artery is widely patent, as are the left internal and external carotid arteries. Calcified plaque is noted in the carotid bulb. Vertebral arteries: The vertebral arteries are widely patent bilaterally and codominant in the neck. Subclavian arteries: Widely patent bilaterally. Intracranial vasculature: There is atherosclerotic calcification of the cavernous carotid and vertebral arteries. The internal carotid arteries are patent at the skull base, as are the anterior and middle cerebral arteries bilaterally. The vertebrobasilar system and posterior cerebral arteries are widely patent. There is origin of left posterior cerebral artery. The left vertebral artery is slightly dominant. There is no aneurysm, high-grade stenosis, or focal vessel cut off seen throughout the intracranial circulation. Jugular veins: Patent bilaterally. Dural sinuses: Patent. Lung apices: Partially visualized upper lobe lung parenchyma appears clear. Soft tissues: The visualized pharyngeal soft tissues are normal in appearance noting angiographic phase technique. The oropharyngeal airway appears widely patent. The salivary and thyroid glands are normal in appearance. No cervical lymphadenopathy is seen. Skeletal structures: The skeletal structures are osteopenic. The calvarium appears intact. The cervical spine is maintained noted multilevel spondylosis. No lytic or blastic lesion is seen. Orbits: The bony orbits are intact. Orbital contents are normal as visualized noting bilateral ocular lens implants. Sinuses and mastoids: The paranasal sinuses are clear. The mastoid air cells are well pneumatized. IMPRESSION: 1. There is no hemorrhage, mass effect, or evidence of acute territorial ischemia by CT criteria. 2. Unremarkable CT angiogram of the brain. 3. Unremarkable CT angiogram of the neck. ACT 112: Negative or not required by law. Electronically signed by: Israel Simmons M.D. 05/20/2022 8:37 PM Head CTA 05/20/22 20:[address] OF THE BRAIN; CT ANGIOGRAM OF THE BRAIN; CT ANGIOGRAM OF THE NECK CLINICAL HISTORY: Neurological deficit. Stroke like symptoms. COMPARISON STUDY: CT of the brain dated 11/02/2017. TECHNIQUE: Unenhanced axial CT scan of the brain is performed. Subsequently, following the IV administration of 120 of Optiray 320, CT angiogram of the head and neck was performed from the aortic arch to the vertex. Images are reviewed in the axial, sagittal, and coronal planes. 3-D MIPS images are created and assessed. IV contrast was administered without complication. All measurements were calculated based on NASCET criteria. A dose lowering technique was utilized adhering to the principles of ALARA. CT DOSE: 1404.04 mGy.cm FINDINGS: Brain parenchyma: There is age related involutional change noting mild microangiopathic disease. There is no hemorrhage, mass effect, or evidence of acute territorial ischemia by CT criteria. There is no evidence of enhancing mass lesion on the angiogram phase images. The ventricles, sulci, and cisterns are prominent secondary to involutional change. Wen-white matter differentiation is preserved. No extra-axial fluid collection is seen. Thoracic aorta: Visualized portions of the thoracic aorta are normal in caliber. The aortic arch demonstrates standard 3-vessel anatomy. Right carotid arterial system: The right common carotid artery is widely patent, as are the right internal and external carotid arteries. Left carotid arterial system: The left common carotid artery is widely patent, as are the left internal and external carotid arteries. Calcified plaque is noted in the carotid bulb. Vertebral arteries: The vertebral arteries are widely patent bilaterally and codominant in the neck. Subclavian arteries: Widely patent bilaterally. Intracranial vasculature: There is atherosclerotic calcification of the cavernous carotid and vertebral arteries. The internal carotid arteries are patent at the skull base, as are the anterior and middle cerebral arteries bilaterally. The vertebrobasilar system and posterior cerebral arteries are widely patent. There is origin of left posterior cerebral artery. The left vertebral artery is slightly dominant. There is no aneurysm, high-grade stenosis, or focal vessel cut off seen throughout the intracranial circulation. Jugular veins: Patent bilaterally. Dural sinuses: Patent. Lung apices: Partially visualized upper lobe lung parenchyma appears clear. Soft tissues: The visualized pharyngeal soft tissues are normal in appearance noting angiographic phase technique. The oropharyngeal airway appears widely patent. The salivary and thyroid glands are normal in appearance. No cervical lymphadenopathy is seen. Skeletal structures: The skeletal structures are osteopenic. The calvarium appears intact. The cervical spine is maintained noted multilevel spondylosis. No lytic or blastic lesion is seen. Orbits: The bony orbits are intact. Orbital contents are normal as visualized noting bilateral ocular lens implants. Sinuses and mastoids: The paranasal sinuses are clear. The mastoid air cells are well pneumatized. IMPRESSION: 1. There is no hemorrhage, mass effect, or evidence of acute territorial ischemia by CT criteria. 2. Unremarkable CT angiogram of the brain. 3. Unremarkable CT angiogram of the neck. ACT 112: Negative or not required by law. Electronically signed by: Israel Simmons M.D. 05/20/2022 8:37 PM Neck CTA 05/20/22 20:[address] OF THE BRAIN; CT ANGIOGRAM OF THE BRAIN; CT ANGIOGRAM OF THE NECK CLINICAL HISTORY: Neurological deficit. Stroke like symptoms. COMPARISON STUDY: CT of the brain dated 11/02/2017. TECHNIQUE: Unenhanced axial CT scan of the brain is performed. Subsequently, following the IV administration of 120 of Optiray 320, CT angiogram of the head and neck was performed from the aortic arch to the vertex. Images are reviewed in the axial, sagittal, and coronal planes. 3-D MIPS images are created and assessed. IV contrast was administered without complication. All measurements were calculated based on NASCET criteria. A dose lowering technique was utilized adhering to the principles of ALARA. CT DOSE: 1404.04 mGy.cm FINDINGS: Brain parenchyma: There is age related involutional change noting mild microangiopathic disease. There is no hemorrhage, mass effect, or evidence of acute territorial ischemia by CT criteria. There is no evidence of enhancing mass lesion on the angiogram phase images. The ventricles, sulci, and cisterns are prominent secondary to involutional change. Wen-white matter differentiation is preserved. No extra-axial fluid collection is seen. Thoracic aorta: Visualized portions of the thoracic aorta are normal in caliber. The aortic arch demonstrates standard 3-vessel anatomy. Right carotid arterial system: The right common carotid artery is widely patent, as are the right internal and external carotid arteries. Left carotid arterial system: The left common carotid artery is widely patent, as are the left internal and external carotid arteries. Calcified plaque is noted in the carotid bulb. Vertebral arteries: The vertebral arteries are widely patent bilaterally and codominant in the neck. Subclavian arteries: Widely patent bilaterally. Intracranial vasculature: There is atherosclerotic calcification of the cavernous carotid and vertebral arteries. The internal carotid arteries are patent at the skull base, as are the anterior and middle cerebral arteries bilaterally. The vertebrobasilar system and posterior cerebral arteries are widely patent. There is origin of left posterior cerebral artery. The left vertebral artery is slightly dominant. There is no aneurysm, high-grade stenosis, or focal vessel cut off seen throughout the intracranial circulation. Jugular veins: Patent bilaterally. Dural sinuses: Patent. Lung apices: Partially visualized upper lobe lung parenchyma appears clear. Soft tissues: The visualized pharyngeal soft tissues are normal in appearance noting angiographic phase technique. The oropharyngeal airway appears widely patent. The salivary and thyroid glands are normal in appearance. No cervical lymphadenopathy is seen. Skeletal structures: The skeletal structures are osteopenic. The calvarium appears intact. The cervical spine is maintained noted multilevel spondylosis. No lytic or blastic lesion is seen. Orbits: The bony orbits are intact. Orbital contents are normal as visualized noting bilateral ocular lens implants. Sinuses and mastoids: The paranasal sinuses are clear. The mastoid air cells are well pneumatized. IMPRESSION: 1. There is no hemorrhage, mass effect, or evidence of acute territorial ischem ia by CT criteria. 2. Unremarkable CT angiogram of the brain. 3. Unremarkable CT angiogram of the neck. ACT 112: Negative or not required by law. Electronically signed by: Israel Simmons M.D. 05/20/2022 8:37 PM Code Status & VTE Plan Code Status Full code VTE Prophylaxis Plan VTE Prophylaxis will be ordered: Yes PG Care Time/CCT Total # of Minutes Spent Total Time Spent with Patient: Total time spent is greater than 50% in coordination of care (as documented) at patient's floor/unit and/or counseling patient: 45 minutes Coding Level of Care Code 26748 INT INP/OBS CARE 3/75MIN Diagnoses Acute stroke due to ischemia I63.9 Hyperlipidemia E78.5 Hyperlipidemia type: unspecified Hypertension I10 Allergic rhinitis J30.9 Anxiety F41.9 Left ventricular diastolic dysfunction I51.9 Mild AI (aortic insufficiency) I35.1 Mild mitral regurgitation I34.0 Moderate obstructive sleep apnea G47.33 Restless leg syndrome G25.81 Prediabetes R73.03 GERD (gastroesophageal reflux disease) K21.9 (2) Hyperlipidemia Hyperlipidemia type: unspecified Qualified Code(s): E78.5 - Hyperlipidemia, unspecified
[2022-05-20] MEDS ORDERED: hydrALAZINE HCL 20 MG/ML VIAL IV STA (23:31)
[2022-05-20] MEDS ORDERED: ALBUT/IPRATROP 3MG/0.5MG NEB 3 ML VIAL INH PRN (23:31)
[2022-05-20] MEDS ORDERED: LABETALOL HCL IV 5 MG/ML 20ML IV PRN (23:31)
[2022-05-20] MEDS ORDERED: STAT IV Infusion **Titration per Protocol STA (23:31)
[2022-05-21] MEDS: NSS + 20MEQ KCL 20 MEQ/1,000 ML BAG IV SCH ×3 (00:30→22:17)
--- NOTE | 2022-05-21 05:50 | Billing Data ---
Date of Service May 21, 2022 Coding Level of Care Code Critical Care 1st - mins
[2022-05-21] MEDS: ICU Protocol for HYPERglycemia SCH ×3 (06:42→20:04)
--- NOTE | 2022-05-21 06:51 | Hospitalist Progress Note ---
Date of Service May 21, 2022 Assessment & Plan (1) Acute stroke due to ischemia: Plan: 76-year-old male with a past medical history including hyperlipidemia, hypertension, allergic rhinitis, anxiety, arthritis, chronic rhinitis, LVH, left inguinal hernia, LV dysfunction, erectile dysfunction, mild aortic insufficiency, mild mitral regurgitation, PVCs, rosacea, moderate KASEY, nasal septal deviation, RLS, right knee osteoarthritis with TKA who presented due to sudden-onset right-sided weakness and speech difficulties. Acute stroke -No evidence of large vessel obstruction on imaging -Status post TNKase begun in the ED -Currently in ICU for monitoring post TNKase -Neuro consulted -MRI brain pending -Echocardiogram pending -NPO until speech eval -PT/OT Hypertension -Permissive hypertension -Goal BP < 170 systolic -Hold HCTZ, olmesartan until cleared by speech Hyperlipidemia -Hold atorvastatin 80 mg while NPO -Check fasting lipid panel in AM DM2 -not on therapy -A1c in AM -Sliding scale with ICU protocol BPH with LUTS -Hold tamsulosin -Han in place -Does have some hematuria, which seems to have been present prior to hospitalization -Consider Urology consult if not improving -Monitor urine output closely GERD -IV famotidine RLS -Hold ropinirole ED -Hold sildenafil CODE STATUS: FULL DVT ppx: SCDs, chemoppx contraindicated for 24h after TNKase Dispo: Remain ICU for at least 24h post TNKase, likely downgrade after Diet: NPO until cleared by speech (2) Hypertension: (3) Hyperlipidemia: (4) GERD (gastroesophageal reflux disease): (5) BPH w urinary obs/LUTS: Admission and Anticipated Discharge Date Admission Date: May 20, 2022 Supervising Physician Co-Signing Physician Notes I personally examined the patient and verified all rodriguez points of history and exam, discussed case, and agree with decision making with Dr Martínez Not really able to obtain meaningful HPI or review of systems. Patient makes eye contact and expresses with his face and his body language good degree of understanding at times. And then seems to be pointing to his face as though to ask me to remove my mask, but then continues to do so after. Vitals noted, in general he is in no distress, right facial droop, expressive aphasia. Seems to understand a good bit but maybe not allmake it hard to gauge receptive aphasia as well. CVAright-sided weakness and aphasiapost TNKcontinue follow-through per protocol. Appreciate neurology and ICU input. PT/OT/speech eval and treat. Anticipate need for rehab after discharge otherwise as above Subjective Seen at bedside with speech therapy in the room. Patient has speech difficulty at this time and is unable to articulate. Gives thumbs up when asked if he is doing okay. Shakes head when asked if any pain. Not totally clear if he fully understands others at this time. Review of Systems Review of Systems: Other (Detailed ROS unobtainable due to aphasia) Physical Exam Physical Exam: GENERAL: WD/WN, NAD HEENT: PERRL, EOMI. Moist mucous membranes. CHEST/LUNGS: CTAB A/P. No crackles, wheezes, rales, rhonchi. HEART: RRR. No m/g/r. No carotid bruits. ABDOMEN: NT/ND, soft. BS+ x4 EXTREMITIES: No cyanosis, no clubbing, no edema SKIN: Warm and dry. No rashes or lesions. PSYCHIATRIC: Euthymic affect, no SI, no pressured speech, no hallucinations NEUROLOGIC: Moving both upper extremities but more limited on right side. More in depth neurologic exam difficult due to aphasia. Results & Data Results & Data ([facility]) Vital Signs (Past 12 Hours) Vital Signs Temp Pulse Pulse Resp BP BP BP 05/21/22 05:59 36.6 C 58 L 14 123/52 L 05/21/22 04:59 36.6 C 65 16 177/79 H 05/21/22 04:29 36.6 C 64 16 155/56 H 05/21/22 03:59 36.6 C 66 19 171/62 H 05/21/22 03:29 36.6 C 63 22 177/69 H 05/21/22 02:59 36.5 C 67 24 125/56 L 05/21/22 02:29 36.5 C 64 16 104/46 L 05/21/22 01:29 36.5 C 72 24 132/54 L 05/21/22 00:48 36.5 C 78 20 152/80 H 05/21/22 00:46 75 05/21/22 00:29 36.5 C 78 20 148/71 H 05/20/22 23:59 36.5 C 75 18 124/52 L 05/20/22 23:29 36.5 C 69 20 156/71 H 05/20/22 22:59 36.5 C 80 20 175/73 H 05/20/22 22:35 62 18 179/71 H 05/20/22 22:44 60 18 179/79 H 05/20/22 22:29 60 18 179/71 H 05/20/22 22:17 65 23 190/71 H 05/20/22 22:00 62 21 181/70 H 05/20/22 21:54 62 23 194/77 H 05/20/22 21:46 63 22 190/73 H 05/20/22 21:42 62 17 155/81 H 05/20/22 22:14 22 05/20/22 21:59 63 18 05/20/22 20:34 81 05/20/22 21:30 66 24 182/98 H 05/20/22 21:25 64 24 170/76 H 05/20/22 21:20 65 28 H 174/83 H 05/20/22 21:18 63 14 180/73 H 05/20/22 21:11 64 19 175/108 H 05/20/22 21:04 68 19 182/85 H 05/20/22 21:00 66 23 187/79 H 05/20/22 20:56 75 26 H 187/74 H 05/20/22 20:50 81 27 H 224/90 H 05/20/22 20:46 81 21 210/83 H 05/20/22 20:37 83 21 186/91 H 05/20/22 20:34 82 24 05/20/22 21:44 64 18 190/73 H 05/20/22 21:29 66 18 182/98 H 05/20/22 21:14 64 18 174/83 H 05/20/22 20:36 37.0 C 82 18 186/91 H Pulse Ox O2 Del Method 05/21/22 05:59 93 Room Air 05/21/22 04:59 96 Room Air 05/21/22 04:29 97 Room Air 05/21/22 03:59 96 Room Air 05/21/22 03:29 97 Room Air 05/21/22 02:59 97 Room Air 05/21/22 02:29 92 Room Air 05/21/22 01:29 94 Room Air 05/21/22 00:48 94 Room Air 02/18/23 00:46 05/21/22 00:29 94 Room Air 05/20/22 23:59 96 Room Air 05/20/22 23:29 98 Room Air 05/20/22 22:59 98 Room Air 05/20/22 22:35 98 05/20/22 22:44 99 Room Air 05/20/22 22:29 99 Room Air 05/20/22 22:17 98 05/20/22 22:00 97 05/20/22 21:54 98 05/20/22 21:46 96 05/20/22 21:42 98 05/20/22 22:14 99 Room Air 05/20/22 21:59 93 Room Air 05/20/22 20:34 05/20/22 21:30 98 05/20/22 21:25 99 05/20/22 21:20 99 05/20/22 21:18 97 05/20/22 21:11 94 05/20/22 21:04 94 05/20/22 21:00 97 05/20/22 20:56 73 L 05/20/22 20:50 97 05/20/22 20:46 97 05/20/22 20:37 79 L 05/20/22 20:34 05/20/22 21:44 95 Room Air 05/20/22 21:29 99 Room Air 05/20/22 21:14 99 Room Air 05/20/22 20:36 99 Room Air Resident Activity Tracking Resident Involvement: Resident Care Provided Care Provided: Adult Hospital Medicine
--- NOTE | 2022-05-21 08:08 | Critical Care Progress Note ---
Date of Service May 21, 2022 Assessment & Plan (1) Acute stroke due to ischemia: (2) Hypertension: (3) Allergic rhinitis: (4) Left ventricular diastolic dysfunction: (5) Mild AI (aortic insufficiency): (6) Nocturnal hypoxemia: (7) Arthritis of right knee: Plan Impression: 76 YOM presents with onset of stroke like symptoms at 19:15. Presented with severe symptoms and NIHSS on presentation ~22. Imagining was obtained and patient was stroke alerted. He was deemed a TNKase candidate and this was administered at 21:14 this evening. Reportedly improvement in symptoms and NIHSS on assessment is 19 although difficult assessment with aphasia and inability to follow commands. For BP control will likely need infusion- follow. 24-hour events: Patient presented to the emergency room. Was administered TNKase. Observed in the ICU. Few doses of antihypertensive medications administered overnight. NIH mildly improved. Recommendations: Neuro - Acute ischemic stroke, no evidence of large vessel obstruction on imaging. Status post thrombolytics. MRI, neurology consultation echocardiogram pending. Follow-up CT scan in 24 hours. If no evidence of bleeding, can likely transfer out of the ICU. Hold antiplatelet agents for now. Will likely need aggressive rehab. Cardiac - HTN, HLD, HFpEF - as above- await [facility] evaluation prior to resuming oral medications - goal BP less than 170 Respiratory - KASEY/Nocturnal hypoxia - cigar smoker occassionally - is compliant with CPAP as above - hold CPAP at this time with his facial droop and inability to communicate GI - GERD/Dyspepsia - Continue IV famotidine RENAL/LYTES - No acute renal needs/ Hypokalemia - replete electrolytes per ICU protocol - LUTS -Has hematuria but this appears to be clearing. Apparently this existed prior to admission. We will hold on urology evaluation and see if it clears. Nothing to do right now as the patient has been administered thrombolytics. ENDO - DM II not on therapy - HGB A1C in morning - BG goal <180mg/dl - insulin sliding scale HEME -mild decrease in hemoglobin on presentation from prior. Continue to follow. ID - no infectious etiology noted at this time LINES/IV ACCESS - PIV, Han Catheter Continue use of these lines DVT PROPHYLAXIS - SCDS, chemical prophylaxis at this time contraindicated 24 hours post TNKAase DISPO: ICU 24 hours post TNKase administration Patient remains critically ill. Significant possibility of clinical deterioration. Total of 35 minutes was spent evaluating managing coordinating care for this patient including discussion with OSMANY and bedside critical care nurse. Admission and Anticipated Discharge Date Admission Date: May 20, 2022 Subjective Patient seen and examined. EMR reviewed. Discussed with critical care nurse at bedside. Patient had some mild hypertension overnight. He remains with both significant expressive and receptive aphasia. May have some hemineglect. His hematuria appears to be slightly clearing. Formal neurology consultation pending. MRI of the brain pending. Review of Systems Review of Systems: Other Unobtainable due to receptive and expressive aphasia Physical Exam Constitutional: WD/WN, vitals as above Neck: trachea midline, no thyromegaly Respiratory: normal respiratory effort, lungs clear to auscultation Cardiovascular: RRR, no murmur, no edema Gastrointestinal (Abdomen): normal bowel sounds, soft, nontender, no hepatosplenomegaly Musculoskeletal: Extremities: extremities normal to inspection Skin: no rashes, warm and dry Neurologic: NIH still remains elevated around 13-14 although difficult to assess due to his receptive aphasia. Pupils reactive. Unable to assess cranial nerves due to receptive aphasia. Moving the right arm some. Genitourinary: Han catheter in place with pink-tinged urine Lymphatic: no cervical lymphadenopathy Results & Data Results & Data ([facility]) Vital Signs (Past 12 Hours) Vital Signs Temp Pulse Pulse Resp BP BP BP 05/21/22 05:59 36.6 C 58 L 14 123/52 L 05/21/22 04:59 36.6 C 65 16 177/79 H 05/21/22 04:29 36.6 C 64 16 155/56 H 05/21/22 03:59 36.6 C 66 19 171/62 H 05/21/22 03:29 36.6 C 63 22 177/69 H 05/21/22 02:59 36.5 C 67 24 125/56 L 05/21/22 02:29 36.5 C 64 16 104/46 L 05/21/22 01:29 36.5 C 72 24 132/54 L 05/21/22 00:48 36.5 C 78 20 152/80 H 05/21/22 00:46 75 05/21/22 00:29 36.5 C 78 20 148/71 H 05/20/22 23:59 36.5 C 75 18 124/52 L 05/20/22 23:29 36.5 C 69 20 156/71 H 05/20/22 22:59 36.5 C 80 20 175/73 H 05/20/22 22:35 62 18 179/71 H 05/20/22 22:44 60 18 179/79 H 05/20/22 22:29 60 18 179/71 H 05/20/22 22:17 65 23 190/71 H 05/20/22 22:00 62 21 181/70 H 05/20/22 21:54 62 23 194/77 H 05/20/22 21:46 63 22 190/73 H 05/20/22 21:42 62 17 155/81 H 05/20/22 22:14 22 05/20/22 21:59 63 18 05/20/22 20:34 81 05/20/22 21:30 66 24 182/98 H 05/20/22 21:25 64 24 170/76 H 05/20/22 21:20 65 28 H 174/83 H 05/20/22 21:18 63 14 180/73 H 05/20/22 21:11 64 19 175/108 H 05/20/22 21:04 68 19 182/85 H 05/20/22 21:00 66 23 187/79 H 05/20/22 20:56 75 26 H 187/74 H 05/20/22 20:50 81 27 H 224/90 H 05/20/22 20:46 81 21 210/83 H 05/20/22 20:37 83 21 186/91 H 05/20/22 20:34 82 24 05/20/22 21:44 64 18 190/73 H 05/20/22 21:29 66 18 182/98 H 05/20/22 21:14 64 18 174/83 H 05/20/22 20:36 37.0 C 82 18 186/91 H Pulse Ox O2 Del Method 05/21/22 05:59 93 Room Air 05/21/22 04:59 96 Room Air 05/21/22 04:29 97 Room Air 05/21/22 03:59 96 Room Air 05/21/22 03:29 97 Room Air 05/21/22 02:59 97 Room Air 05/21/22 02:29 92 Room Air 05/21/22 01:29 94 Room Air 05/21/22 00:48 94 Room Air 05/21/22 00:46 05/21/22 00:29 94 Room Air 05/20/22 23:59 96 Room Air 05/20/22 23:29 98 Room Air 05/20/22 22:59 98 Room Air 05/20/22 22:35 98 05/20/22 22:44 99 Room Air 05/20/22 22:29 99 Room Air 05/20/22 22:17 98 05/20/22 22:00 97 05/20/22 21:54 98 05/20/22 21:46 96 05/20/22 21:42 98 05/20/22 22:14 99 Room Air 05/20/22 21:59 93 Room Air 05/20/22 20:34 05/20/22 21:30 98 05/20/22 21:25 99 05/20/22 21:20 99 05/20/22 21:18 97 05/20/22 21:11 94 05/20/22 21:04 94 05/20/22 21:00 97 05/20/22 20:56 73 L 05/20/22 20:50 97 05/20/22 20:46 97 05/20/22 20:37 79 L 05/20/22 20:34 05/20/22 21:44 95 Room Air 05/20/22 21:29 99 Room Air 05/20/22 21:14 99 Room Air 05/20/22 20:36 99 Room Air Critical Care Results & Data Vital Signs (Past 12 Hours) Vital Signs Temp Pulse Pulse Resp BP BP BP 05/21/22 07:18 36.6 C 62 14 120/47 L 05/21/22 05:59 36.6 C 58 L 14 123/52 L 05/21/22 04:59 36.6 C 65 16 177/79 H 05/21/22 04:29 36.6 C 64 16 155/56 H 05/21/22 03:59 36.6 C 66 19 171/62 H 05/21/22 03:29 36.6 C 63 22 177/69 H 05/21/22 02:59 36.5 C 67 24 125/56 L 05/21/22 02:29 36.5 C 64 16 104/46 L 05/21/22 01:29 36.5 C 72 24 132/54 L 05/21/22 00:48 36.5 C 78 20 152/80 H 05/21/22 00:46 75 05/21/22 00:29 36.5 C 78 20 148/71 H 05/20/22 23:59 36.5 C 75 18 124/52 L 05/20/22 23:29 36.5 C 69 20 156/71 H 05/20/22 22:59 36.5 C 80 20 175/73 H 05/20/22 22:35 62 18 179/71 H 05/20/22 22:44 60 18 179/79 H 05/20/22 22:29 60 18 179/71 H 05/20/22 22:17 65 23 190/71 H 05/20/22 22:00 62 21 181/70 H 05/20/22 21:54 62 23 194/77 H 05/20/22 21:46 63 22 190/73 H 05/20/22 21:42 62 17 155/81 H 05/20/22 22:14 22 05/20/22 21:59 63 18 05/20/22 20:34 81 05/20/22 21:30 66 24 182/98 H 05/20/22 21:25 64 24 170/76 H 05/20/22 21:20 65 28 H 174/83 H 05/20/22 21:18 63 14 180/73 H 05/20/22 21:11 64 19 175/108 H 05/20/22 21:04 68 19 182/85 H 05/20/22 21:00 66 23 187/79 H 05/20/22 20:56 75 26 H 187/74 H 05/20/22 20:50 81 27 H 224/90 H 05/20/22 20:46 81 21 210/83 H 05/20/22 20:37 83 21 186/91 H 05/20/22 20:34 82 24 05/20/22 21:44 64 18 190/73 H 05/20/22 21:29 66 18 182/98 H 05/20/22 21:14 64 18 174/83 H 05/20/22 20:36 37.0 C 82 18 186/91 H Pulse Ox O2 Del Method 05/21/22 07:18 93 Room Air 05/21/22 05:59 93 Room Air 05/21/22 04:59 96 Room Air 05/21/22 04:29 97 Room Air 05/21/22 03:59 96 Room Air 05/21/22 03:29 97 Room Air 05/21/22 02:59 97 Room Air 05/21/22 02:29 92 Room Air 05/21/22 01:29 94 Room Air 05/21/22 00:48 94 Room Air 05/21/22 00:46 05/21/22 00:29 94 Room Air 05/20/22 23:59 96 Room Air 05/20/22 23:29 98 Room Air 05/20/22 22:59 98 Room Air 05/20/22 22:35 98 05/20/22 22:44 99 Room Air 05/20/22 22:29 99 Room Air 05/20/22 22:17 98 05/20/22 22:00 97 05/20/22 21:54 98 05/20/22 21:46 96 05/20/22 21:42 98 05/20/22 22:14 99 Room Air 05/20/22 21:59 93 Room Air 05/20/22 20:34 05/20/22 21:30 98 05/20/22 21:25 99 05/20/22 21:20 99 05/20/22 21:18 97 05/20/22 21:11 94 05/20/22 21:04 94 05/20/22 21:00 97 05/20/22 20:56 73 L 05/20/22 20:50 97 05/20/22 20:46 97 05/20/22 20:37 79 L 05/20/22 20:34 05/20/22 21:44 95 Room Air 05/20/22 21:29 99 Room Air 05/20/22 21:14 99 Room Air 05/20/22 20:36 99 Room Air Lab & Micro Results (Past 24 Hours) RBC 4.64 M/uL (4.70-6.10) L 05/20/22 WBC 5.33 K/ul (4.8-10.8) 05/20/22 Hgb 12.6 g/dl (14.0-18.0) L 05/20/22 Hct 38.1 % (42.0-52.0) L 05/20/22 MCV 82.1 fL (80.0-100.0) 05/20/22 MCH 27.2 pg (25.0-34.0) 05/20/22 MCHC 33.1 g/dL (32.0-36.0) 05/20/22 RDW Standard Deviation 41.3 fL (36.4-46.3) 05/20/22 RDW Coefficient of Variation 14.1 % (11.5-14.5) 05/20/22 Plt Count 188 K/uL (130-400) 05/20/22 MPV 8.9 fL (9.4-12.4) L 05/20/22 Neutrophils (%) (Auto) 46.4 % 05/20/22 Lymphocytes (%) (Auto) 43.2 % 05/20/22 Monocytes # (Auto) 0.41 K/uL (0.11-0.59) 05/20/22 Eosinophils # (Auto) 0.11 K/uL (0-0.50) 05/20/22 Immature Granulocyte % (Auto) 0.4 % 05/20/22 Neutrophils # (Auto) 2.48 K/uL (1.40-6.50) 05/20/22 Lymphocytes # (Auto) 2.30 K/uL (1.2-3.4) 05/20/22 Monocytes # (Auto) 0.41 K/uL (0.11-0.59) 05/20/22 Eosinophils # (Auto) 0.11 K/uL (0-0.50) 05/20/22 Basophils # (Auto) 0.01 K/uL (0-0.2) 05/20/22 Immature Granulocyte # (Auto) 0.02 K/uL (0.01-0.20) 3 Na 137 mmol/L (136-145) 05/20/22 K 3.1 mmol/L (3.5-5.1) L 05/20/22 Cl 104 mmol/L (98-107) 05/20/22 CO2 23 mmol/L (21-32) 05/20/22 Anion Gap 10 (3-11) 05/20/22 BUN 11 mg/dl (6-23) 05/20/22 Creatinine 0.85 mg/dl (0.6-1.4) 05/20/22 Estimated GFR ( Amer) 98.8 ml/min 05/20/22 Estimated GFR (Non-Af Amer) 85.2 ml/min 05/20/22 BUN/Creatinine Ratio 12.9 (10-20) 05/20/22 Glu 95 mg/dl (70-99(Fasting)) 05/20/22 Ca 9.1 mg/dl (8.5-10.1) 05/20/22 Total Bilirubin 0.7 mg/dl (0.2-1.0) 05/20/22 AST 24 U/L (13-39) 05/20/22 ALT 26 U/L (7-52) 05/20/22 Alkaline Phosphatase 71 U/L (34-104) 05/20/22 TP 6.3 gm/dl (6.0-8.3) 05/20/22 Albumin 4.0 gm/dl (3.4-5.0) 05/20/22 Globulin 2.3 gm/dl (2.5-4.0) L 05/20/22 Albumin/Globulin Ratio 1.7 (0.9-2) 05/20/22 Mg 2.0 mg/dl (1.7-2.4) 05/20/22 20:38 Calcium Level 9.1 mg/dl (8.5-10.1) 05/20/22 20:38 Prothromb Time International Ratio 1.1 (0.9-1.1) 05/20/22 20:3 8 Diagnostic Findings (Past 24 Hours) Head CT 05/20/22 20:[address] OF THE BRAIN; CT ANGIOGRAM OF THE BRAIN; CT ANGIOGRAM OF THE NECK CLINICAL HISTORY: Neurological deficit. Stroke like symptoms. COMPARISON STUDY: CT of the brain dated 11/02/2017. TECHNIQUE: Unenhanced axial CT scan of the brain is performed. Subsequently, following the IV administration of 120 of Optiray 320, CT angiogram of the head and neck was performed from the aortic arch to the vertex. Images are reviewed in the axial, sagittal, and coronal planes. 3-D MIPS images are created and assessed. IV contrast was administered without complication. All measurements were calculated based on NASCET criteria. A dose lowering technique was utilized adhering to the principles of ALARA. CT DOSE: 1404.04 mGy.cm FINDINGS: Brain parenchyma: There is age related involutional change noting mild microangiopathic disease. There is no hemorrhage, mass effect, or evidence of acute territorial ischemia by CT criteria. There is no evidence of enhancing mass lesion on the angiogram phase images. The ventricles, sulci, and cisterns are prominent secondary to involutional change. Wen-white matter differentiation is preserved. No extra-axial fluid collection is seen. Thoracic aorta: Visualized portions of the thoracic aorta are normal in caliber. The aortic arch demonstrates standard 3-vessel anatomy. Right carotid arterial system: The right common carotid artery is widely patent, as are the right internal and external carotid arteries. Left carotid arterial system: The left common carotid artery is widely patent, as are the left internal and external carotid arteries. Calcified plaque is noted in the carotid bulb. Vertebral arteries: The vertebral arteries are widely patent bilaterally and codominant in the neck. Subclavian arteries: Widely patent bilaterally. Intracranial vasculature: There is atherosclerotic calcification of the cavernous carotid and vertebral arteries. The internal carotid arteries are patent at the skull base, as are the anterior and middle cerebral arteries bilaterally. The vertebrobasilar system and posterior cerebral arteries are widely patent. There is origin of left posterior cerebral artery. The left vertebral artery is slightly dominant. There is no aneurysm, high-grade stenosis, or focal vessel cut off seen throughout the intracranial circulation. Jugular veins: Patent bilaterally. Dural sinuses: Patent. Lung apices: Partially visualized upper lobe lung parenchyma appears clear. Soft tissues: The visualized pharyngeal soft tissues are normal in appearance noting angiographic phase technique. The oropharyngeal airway appears widely patent. The salivary and thyroid glands are normal in appearance. No cervical lymphadenopathy is seen. Skeletal structures: The skeletal structures are osteopenic. The calvarium appears intact. The cervical spine is maintained noted multilevel spondylosis. No lytic or blastic lesion is seen. Orbits: The bony orbits are intact. Orbital contents are normal as visualized noting bilateral ocular lens implants. Sinuses and mastoids: The paranasal sinuses are clear. The mastoid air cells are well pneumatized. IMPRESSION: 1. There is no hemorrhage, mass effect, or evidence of acute territorial ischemia by CT criteria. 2. Unremarkable CT angiogram of the brain. 3. Unremarkable CT angiogram of the neck. ACT 112: Negative or not required by law. Electronically signed by: Israel Simmons M.D. 05/20/2022 8:37 PM Head CTA 05/20/22 20:[address] OF THE BRAIN; CT ANGIOGRAM OF THE BRAIN; CT ANGIOGRAM OF THE NECK CLINICAL HISTORY: Neurological deficit. Stroke like symptoms. COMPARISON STUDY: CT of the brain dated 11/02/2017. TECHNIQUE: Unenhanced axial CT scan of the brain is performed. Subsequently, following the IV administration of 120 of Optiray 320, CT angiogram of the head and neck was performed from the aortic arch to the vertex. Images are reviewed in the axial, sagittal, and coronal planes. 3-D MIPS images are created and assessed. IV contrast was administered without complication. All measurements were calculated based on NASCET criteria. A dose lowering technique was utilized adhering to the principles of ALARA. CT DOSE: 1404.04 mGy.cm FINDINGS: Brain parenchyma: There is age related involutional change noting mild microangiopathic disease. There is no hemorrhage, mass effect, or evidence of acute territorial ischemia by CT criteria. There is no evidence of enhancing mass lesion on the angiogram phase images. The ventricles, sulci, and cisterns are prominent secondary to involutional change. Wen-white matter differentiation is preserved. No extra-axial fluid collection is seen. Thoracic aorta: Visualized portions of the thoracic aorta are normal in caliber. The aortic arch demonstrates standard 3-vessel anatomy. Right carotid arterial system: The right common carotid artery is widely patent, as are the right internal and external carotid arteries. Left carotid arterial system: The left common carotid artery is widely patent, as are the left internal and external carotid arteries. Calcified plaque is noted in the carotid bulb. Vertebral arteries: The vertebral arteries are widely patent bilaterally and codominant in the neck. Subclavian arteries: Widely patent bilaterally. Intracranial vasculature: There is atherosclerotic calcification of the cavernous carotid and vertebral arteries. The internal carotid arteries are patent at the skull base, as are the anterior and middle cerebral arteries bilaterally. The vertebrobasilar system and posterior cerebral arteries are widely patent. There is origin of left posterior cerebral artery. The left vertebral artery is slightly dominant. There is no aneurysm, high-grade stenosis, or focal vessel cut off seen throughout the intracranial circulation. Jugular veins: Patent bilaterally. Dural sinuses: Patent. Lung apices: Partially visualized upper lobe lung parenchyma appears clear. Soft tissues: The visualized pharyngeal soft tissues are normal in appearance noting angiographic phase technique. The oropharyngeal airway appears widely patent. The salivary and thyroid glands are normal in appearance. No cervical lymphadenopathy is seen. Skeletal structures: The skeletal structures are osteopenic. The calvarium appears intact. The cervical spine is maintained noted multilevel spondylosis. No lytic or blastic lesion is seen. Orbits: The bony orbits are intact. Orbital contents are normal as visualized noting bilateral ocular lens implants. Sinuses and mastoids: The paranasal sinuses are clear. The mastoid air cells are well pneumatized. IMPRESSION: 1. There is no hemorrhage, mass effect, or evidence of acute territorial ischemia by CT criteria. 2. Unremarkable CT angiogram of the brain. 3. Unremarkable CT angiogram of the neck. ACT 112: Negative or not required by law. Electronically signed by: Israel Simmons M.D. 05/20/2022 8:37 PM Neck CTA 05/20/22 20:[address] OF THE BRAIN; CT ANGIOGRAM OF THE BRAIN; CT ANGIOGRAM OF THE NECK CLINICAL HISTORY: Neurological deficit. Stroke like symptoms. COMPARISON STUDY: CT of the brain dated 11/02/2017. TECHNIQUE: Unenhanced axial CT scan of the brain is performed. Subsequently, following the IV administration of 120 of Optiray 320, CT angiogram of the head and neck was performed from the aortic arch to the vertex. Images are reviewed in the axial, sagittal, and coronal planes. 3-D MIPS images are created and assessed. IV contrast was administered without complication. All measurements we re calculated based on NASCET criteria. A dose lowering technique was utilized adhering to the principles of ALARA. CT DOSE: 1404.04 mGy.cm FINDINGS: Brain parenchyma: There is age related involutional change noting mild microangiopathic disease. There is no hemorrhage, mass effect, or evidence of acute territorial ischemia by CT criteria. There is no evidence of enhancing mass lesion on the angiogram phase images. The ventricles, sulci, and cisterns are prominent secondary to involutional change. Wen-white matter differentiation is preserved. No extra-axial fluid collection is seen. Thoracic aorta: Visualized portions of the thoracic aorta are normal in caliber. The aortic arch demonstrates standard 3-vessel anatomy. Right carotid arterial system: The right common carotid artery is widely patent, as are the right internal and external carotid arteries. Left carotid arterial system: The left common carotid artery is widely patent, as are the left internal and external carotid arteries. Calcified plaque is noted in the carotid bulb. Vertebral arteries: The vertebral arteries are widely patent bilaterally and codominant in the neck. Subclavian arteries: Widely patent bilaterally. Intracranial vasculature: There is atherosclerotic calcification of the cavernous carotid and vertebral arteries. The internal carotid arteries are patent at the skull base, as are the anterior and middle cerebral arteries bilaterally. The vertebrobasilar system and posterior cerebral arteries are widely patent. There is origin of left posterior cerebral artery. The left vertebral artery is slightly dominant. There is no aneurysm, high-grade stenosis, or focal vessel cut off seen throughout the intracranial circulation. Jugular veins: Patent bilaterally. Dural sinuses: Patent. Lung apices: Partially visualized upper lobe lung parenchyma appears clear. Soft tissues: The visualized pharyngeal soft tissues are normal in appearance noting angiographic phase technique. The oropharyngeal airway appears widely patent. The salivary and thyroid glands are normal in appearance. No cervical lymphadenopathy is seen. Skeletal structures: The skeletal structures are osteopenic. The calvarium appears intact. The cervical spine is maintained noted multilevel spondylosis. No lytic or blastic lesion is seen. Orbits: The bony orbits are intact. Orbital contents are normal as visualized noting bilateral ocular lens implants. Sinuses and mastoids: The paranasal sinuses are clear. The mastoid air cells are well pneumatized. IMPRESSION: 1. There is no hemorrhage, mass effect, or evidence of acute territorial ischemia by CT criteria. 2. Unremarkable CT angiogram of the brain. 3. Unremarkable CT angiogram of the neck. ACT 112: Negative or not required by law. Electronically signed by: Israel Simmons M.D. 05/20/2022 8:37 PM I & O Totals 24 Hours 05/20/22 05/21/22 05/22/22 06:59 06:59 06:59 Output Total 1000 / 1000 Balance -1000 / -1000 Cumulative 05/20/22 20:09 thru 05/21/22 06:00 Output Total 1000 Balance -1000 RT Ventilator Mngmt (Last Documented) Ventilator Ordered Settings Respiratory Rate 14 05/21/22 07:18 Ventilator - PT Measurements Respiratory Rate 14 Coding Level of Care Code Critical Care 1st 30-74 mins Diagnoses Acute stroke due to ischemia I63.9 Hypertension I10 Allergic rhinitis J30.9 Left ventricular diastolic dysfunction I51.9 Mild AI (aortic insufficiency) I35.1 Nocturnal hypoxemia G47.34 Arthritis of right knee M17.11
--- NOTE | 2022-05-21 11:12 | Neurology Consultation ---
Date of Consultation May 21, 2022 Assessment & Plan (1) Acute stroke due to ischemia: Plan Neurology Consultation Assessment & Plan: Impression: pt with s/p TNKase and left large MCA area ischemic stroke (mostly posterior) with global aphasia and rt hemiparesis that is improving. no suggestion of bleed. Recommendations: * Standard stroke work up as planned * Antiplatelet therapy: hold all blood thinners until tomorrow. restart ASA 81mg po daily tomorrow morning if pt continue to be stable. * continue post TNKase care as now. * Images: TTE with bubble. * Permissive Hypertension next 24-48 hrs. Keep SBP goal range less than 200. Avoid hypotension. * Long-term SBP goal less than 130. * Plenty of hydration including IV fluid (use isotonic solution) next 1-2 days if possible. Avoid hypovolemia and hypotension. * Initiate DVT prevention therapy * Avoid hypoglycemia, serum glucose goal during hospitalization: 140-180 * Long-term HgA1c goal less than 7 * Start statin if not on it.Long-term LDL goal of less than 70. * Head of bed up 30 degree if possible. * Stroke education * Smoke cessation education if a smoker. * Telemetry monitoring.Please order MCOT (mobile cardiac outpatient telemetry) orICM (insertable cardiac monitor technician) if never had shelter cardiac monitoring previously. * Fall precaution and aspiration precaution. * Physical/occupational therapy and speech path evaluations. Chart reviewed I have spent more than 50% educating patient about potential diagnosis and neurological evaluation and coordinating care with patient's treatment team. Total time spent: 80 min (this includes chart review and documentation) Dr. William Foote MD [facility] Neurology Chief Complaint: rt side weakness HISTORY OF PRESENT ILLNESS:pt s/p TNKase last night for rt hemiparesis. mri brain noted today for large left side parietal/occipital area and deep subcortical ischemic infarct. pt aphasic but awake and clinically stable. no suggestion of bleed. Admission/Initial HPI:The patient is a 76-year-old male with a past medical history including hyperlipidemia, hypertension, allergic rhinitis, anxiety, arthritis, chronic rhinitis, LVH, left inguinal hernia, LV dysfunction, erectile dysfunction, mild aortic insufficiency, mild mitral regurgitation, nasal polyps, PVCs, rosacea, moderate KASEY, nasal septal deviation, RLS, right knee osteoarthritis with TKA, and prediabetes. The patient presented to the emergency department as noted above. Work-up in the emergency department for the CT head, CTA head and neck all of which were negative. Patient was then determined to be a candidate for TNK, and IV administration TNK was begun. Patient did start to have relatively quick partial improvement in right upper extremity strength, and attempted to speak but had difficulty with speech. Past Medical History: See chart Meds: See chart Social & Family History: See chart Review of Systems: Per HPI. Physical Exam: General Statement: not in acute distress, Mental Status: awake. follows simple command sometimes. some comprehension problem. unable to speak. nonverbal. No apraxia Cranial Nerves: PERRL.Extraocular movements were full with no nystagmus. Normal pursuit.Facial movements with rt face droop. Hearing was grossly intact..Sternocleidomastoid and trapezius muscles were 5/5 and equal bilaterally. Motor: Strength was 4+/5 t/o on rt side upper and lower. left side grossly 5/5. Sensory:intact to touch bilaterally Coordination: intact bilaterally History of Present Illness Attending Physician: Shivam Santos DO Allergies Allergy/AdvReac Type Severity Reaction Status Date / Time No Known Drug Allergies Allergy Verified 03/22/22 11:34 Home Medications Medication Instructions Recorded Confirmed Type famotidine 20 mg tablet 20 mg PO Q2D 05/13/20 03/22/22 History azelastine 205.5 mcg (0.15 %) 2 spray intranasal BID PRN sinus 01/01/21 03/22/22 Rx nasal spray congestion #30 mL fluticasone propionate 50 2 spray intranasal BID PRN sinus 01/01/21 03/22/22 Rx mcg/actuation nasal congestion #16 grams spray,suspension (Flonase Allergy Relief) sildenafil 100 mg tablet 100 mg PO DAILY PRN sexual 01/01/21 03/22/22 Rx activity #36 tabs atorvastatin 80 mg tablet 80 mg PO QAM #90 tabs 10/15/21 03/22/22 Rx hydrochlorothiazide 25 mg tablet 25 mg PO QAM #90 tabs 10/15/21 03/22/22 Rx montelukast 10 mg tablet 10 mg PO QAM #90 tabs 11/04/21 03/22/22 Rx amoxicillin 875 mg-potassium 1 tab PO BID 10 days #20 tabs 03/22/22 03/22/22 Rx clavulanate 125 mg tablet ropinirole 0.5 mg tablet 1 mg PO DAILY 03/22/22 History tamsulosin 0.4 mg capsule cap PO 03/22/22 03/22/22 History olmesartan 40 mg tablet 40 mg PO DAILY #90 tabs 05/16/22 Rx Patient History Medical History (Updated 05/21/22 @ 09:27 by Davide Haddad MD) Cardiac murmur Mild to moderate AR on 05/20/20 ECHO Follows only with cardio PRN GERD (gastroesophageal reflux disease) Well controlled and stable Hearing loss No hearing aids History of anesthesia reaction Lap hernia repair 05/2018 had urinary retention- olson catheter placed- no issues with other surgeries History of fainting NOV 2017- near syncope - had OP eval by neurology and cardiology, ruled vasovagal, no additional w/u needed-NO RECENT ISSUES History of skin cancer S/p removal Hyperlipidemia Hypertension Restless leg syndrome Mild/occasionally Sleep apnea cpap Surgical History History of arthroscopy of right knee History of cataract surgery bilateral History of colonoscopy with polypectomy History of hernia repair X2 S/P laparoscopic hernia repair ventral hernia repair with mesh Family History Father Leukemia Grandfather (Maternal) Myocardial infarction Mother Hearing loss Other No family history of adverse response to anesthesia No family history of bleeding disorder Denies family history of Ovarian cancer Prostate cancer Breast cancer Colorectal cancer Social History Smoking Status: Unknown if ever smoked Tobacco Type: Cigars Cigarettes Per Day: 1 CIGAR A WEEK; Second Hand Exposure: Yes (Parents SMOKED); Hx Alcohol Use: Yes Alcohol type: beer Alcohol Intake Frequency: 4 or More x per/Week Alcohol Intake Frequency Comment: 1 or 2 drinks a day Hx Substance Use: No Preferred Language: Italian Communication Ability: Impaired Communication Ability Comment: aphasia Visual Impairment: No Limitations Hearing Ability: Normal Tailer In Required: No Beliefs That Will Affect Care: None marital status: Current Living Situation: Spouse current occupational status: retired Other Information That Helps Us Care for You: No Feels Safe at Home: Yes Safety Concerns: Feels Safe At This Time Childhood Exposure to Second-Hand Smoke: Yes Dental Care, Regularly: Yes Physical Activity Frequency: 1-2 Times per Week Physical Activity Frequency Comment: therapy; 60 mins Seatbelt Use: always Sunscreen Use: Yes Assistive Devices: None Results & Data ([facility]) Vital Signs (Past 12 Hours) Vital Signs Temp Pulse Pulse Resp BP BP Pulse Ox 05/21/22 10:00 65 19 98 05/21/22 10:00 144/81 H 05/21/22 09:00 60 24 97 05/21/22 09:00 161/69 H 05/21/22 08:00 66 16 97 05/21/22 08:00 145/72 H 05/21/22 07:30 152/71 H 05/21/22 07:30 61 23 97 05/21/22 07:00 60 22 95 05/21/22 07:00 120/45 L 05/21/22 10:18 36.6 C 65 18 144/81 H 98 05/21/22 09:18 36.6 C 60 20 161/69 H 97 05/21/22 08:18 36.6 C 66 16 145/72 H 97 05/21/22 08:00 59 L 05/21/22 07:18 36.6 C 62 14 120/47 L 93 05/21/22 05:59 36.6 C 58 L 14 123/52 L 93 05/21/22 04:59 36.6 C 65 16 177/79 H 96 05/21/22 04:29 36.6 C 64 16 155/56 H 97 05/21/22 03:59 36.6 C 66 19 171/62 H 96 05/21/22 03:29 36.6 C 63 22 177/69 H 97 05/21/22 02:59 36.5 C 67 24 125/56 L 97 05/21/22 02:29 36.5 C 64 16 104/46 L 92 05/21/22 01:29 36.5 C 72 24 132/54 L 94 05/21/22 00:48 36.5 C 78 20 152/80 H 94 05/21/22 00:46 75 05/21/22 00:29 36.5 C 78 20 148/71 H 94 05/20/22 23:59 36.5 C 75 18 124/52 L 96 05/20/22 23:29 36.5 C 69 20 156/71 H 98 O2 Del Method 05/21/22 10:00 05/21/22 10:00 05/21/22 09:00 05/21/22 09:00 05/21/22 08:00 05/21/22 08:00 05/21/22 07:30 05/21/22 07:30 05/21/22 07:00 05/21/22 07:00 05/21/22 10:18 Room Air 05/21/22 09:18 Room Air 05/21/22 08:18 Room Air 05/21/22 08:00 05/21/22 07:18 Room Air 05/21/22 05:59 Room Air 05/21/22 04:59 Room Air 05/21/22 04:29 Room Air 05/21/22 03:59 Room Air 05/21/22 03:29 Room Air 05/21/22 02:59 Room Air 05/21/22 02:29 Room Air 05/21/22 01:29 Room Air 05/21/22 00:48 Room Air 05/21/22 00:46 05/21/22 00:29 Room Air 05/20/22 23:59 Room Air 05/20/22 23:29 Room Air
--- NOTE | 2022-05-21 11:19 | Electrocardiogram Report ---
Test Reason : Blood Pressure : / mmHG Vent. Rate : 081 BPM Atrial Rate : 081 BPM P-R Int : 170 ms QRS Dur : 082 ms QT Int : 390 ms P-R-T Axes : 051 -45 028 degrees QTc Int : 453 ms Normal sinus rhythm with sinus arrhythmia Left anterior fascicular block Abnormal ECG When compared with ECG of 07-OCT-2020 09:10, Vent. rate has increased BY 35 BPM Nonspecific T wave abnormality now evident in Anterior leads Confirmed by Travis Aguirre ([id number]) on 05/21/2022 11:19:52 AM Referred By: REFERRED SELF Confirmed By:Travis Aguirre
--- NOTE | 2022-05-21 11:45 | Electrocardiogram Report ---
Test Reason : Blood Pressure : / mmHG Vent. Rate : 065 BPM Atrial Rate : 065 BPM P-R Int : 170 ms QRS Dur : 080 ms QT Int : 438 ms P-R-T Axes : 023 -45 -16 degrees QTc Int : 455 ms Normal sinus rhythm Left anterior fascicular block Nonspecific T wave abnormality Abnormal ECG When compared with ECG of 20-MAY-2022 20:33, (unconfirmed) Nonspecific T wave abnormality is now present Confirmed by Travis Aguirre ([id number]) on 05/21/2022 11:44:53 AM Referred By: REFERRED SELF Confirmed By:Travis Aguirre
[2022-05-21] MEDS: niCARdipine 25 MG in SODIUM CHLORIDE 0.9% 240 ML IV SCH ×3 (11:48→20:04)
--- NOTE | 2022-05-21 11:59 | Magnetic Resonance Report ---
MR brain wo con HISTORY: 76 years-old Male CVA s/p TNK acute strokelike symptoms COMPARISON: Head CT and CTA studies 05/20/2022 TECHNIQUE: Multiplanar multisequence MRI of the brain was obtained without the use of IV contrast. FINDINGS: 9.7 x 4.7 cm focus of restricted diffusion involves the left MCA territory, frontal, parietal and tem poral lobes with decreased signal on ADC map and increased T2/FLAIR signal. Mild associated gyral exp ansion with sulcal effacement from the cytotoxic edema. Partially empty sella. Degenerative changes o f the cervical spine. Thrombosed left MCA branch on image 15 series 6. Involutional changes with mild patchy T2/FLAIR hyperintense foci throughout the white matter. Mild encephalomalacia and gliosis of the posterior right cerebral hemisphere from chronic insult. No acute intracranial hemorrhage, abnorm al extra axial collection, hydrocephalus or intra-axial mass. Mass effect with 3 mm rightward midline shift. The remaining cerebral venous sinuses and major arterial flow voids appear patent. Prior bilateral le ns repair. Mild leftward bowing and spurring the nasal septum. Mastoid air cells and paranasal sinuse s are clear. IMPRESSION: 1. Large acute left MCA infarct with thrombosed distal left MCA branch. 2. 3 mm rightward midline shift. 3. No acute intracranial hemorrhage. ACT 112: Negative or not required by law. The above report was generated using voice recognition software. It may contain grammatical, syntax o r spelling errors. Electronically signed by: Robbie Coffey M.D. 05/21/2022 11:57 AM
[2022-05-21] MEDS: PANTOprazole 40 MG in SYRINGE 0 ML IV SCH (12:03)
--- NOTE | 2022-05-21 17:28 | Billing Data ---
Date of Service May 21, 2022 Coding Level of Care Code 06587 SUB INP/OBS CARE
[2022-05-21] MEDS: ACETAMINOPHEN 1000 MG/100 ML IV IV PRN (21:37)
--- NOTE | 2022-05-21 21:39 | CT Scan Report ---
CT head/brain wo con CLINICAL HISTORY: 76 years-old Male with 24 hour post TNKase eval for hemmorhagic conversio. Acute l eft MCA infarct TECHNIQUE: Multiple axial CT images of the head were obtained without contrast. A dose lowering tech nique was utilized adhering to the principles of ALARA. CT DOSE: 537.48 mGy.cm COMPARISON: Brain MRI of same day, head CT and CTA head 05/20/2022 FINDINGS: Large acute left MCA infarct measuring up to approximately 10 cm is noted with progressively worsened cytotoxic edema resolving in associated gyral expansion and sulcal effacement.. Unchanged 4 mm right whitley midline shift. Thrombosed left MCA branches is again noted on images 15 and 16 of series 2. No a cute intracranial hemorrhage, hydrocephalus or abnormal extra-axial collection. Involutional changes with chronic microvascular ischemic disease. No acute calvarial fracture. Mastoid air cells and paranasal sinuses are clear. Unremarkable soft tis sues and orbits. Prior bilateral lens repair. IMPRESSION: 1. Large acute left MCA infarct with progressively worsened cytotoxic edema. 2. Unchanged 4 mm rightward midline shift. 3. Thrombosed distal branch of the left MCA again noted. 4. No acute intracranial hemorrhage. ACT 112: Negative or not required by law. The above report was generated using voice recognition software. It may contain grammatical, syntax o r spelling errors. Electronically signed by: Robbie Coffey M.D. 05/21/2022 9:36 PM
[2022-05-22] MEDS: niCARdipine 25 MG in SODIUM CHLORIDE 0.9% 240 ML IV SCH ×2 (00:07→06:07)
[2022-05-22] MEDS: ICU Protocol for HYPERglycemia SCH ×2 (00:25→06:08)
[2022-05-22 06:21] LABS: Basophils # (auto) 0.02 K/uL (0-0.2); Basophils % (auto) 0.4 %; Eosinophils # (auto) 0.13 K/uL (0-0.50); Eosinophils % (auto) 2.4 %; Hematocrit (blood only) 35.6 % (42.0-52.0); Hemoglobin 11.7 g/dl (14.0-18.0); Immature Granulocytes # (auto) 0.02 K/uL (0.01-0.20); Immature Granulocytes % (auto) 0.4 %; Lymphocytes % (auto) 27.1 %; Mean Corpuscular Hemoglobin 26.8 pg (25.0-34.0); Mean Corpuscular Hgb Conc 32.9 g/dL (32.0-36.0); Mean Corpuscular Volume 81.7 fL (80.0-100.0); Monocytes # (auto) 0.46 K/uL (0.11-0.59); Monocytes % (auto) 8.3 %; Neutrophils % (auto) 61.4 %; Platelet Count 174 K/uL (130-400); RDW Coefficient of Variation 14.4 % (11.5-14.5); RDW Standard Deviation 42.2 fL (36.4-46.3); Red Blood Count 4.36 M/uL (4.70-6.10); White Blood Count 5.53 K/ul (4.8-10.8)
[2022-05-22 06:38] LABS: Albumin Level 3.6 gm/dl (3.4-5.0); BUN Creatinine Ratio 8.3 (10-20); Bilirubin Direct 0.2 mg/dl (0-0.2); Bilirubin,Total 1.4 mg/dl (0.2-1.0); Calcium 8.8 mg/dl (8.5-10.1); Chol HDL Ratio 4.1 (0-5); Creatinine Clr Calc Pharmacy 90.9 ml/min; Est GFR (African American) 105.8 ml/min; Est GFR (Non-African American) 91.3 ml/min; Potassium 3.9 mmol/L (3.5-5.1); Total Protein 5.7 gm/dl (6.0-8.3)
[2022-05-22 06:40] LABS: INR 1.1 (0.9-1.1); Partial Thromboplastin Time 27.3 Seconds (21.0-31.0); Prothrombin Time 12.1 Seconds (9.0-12.0)
--- NOTE | 2022-05-22 06:55 | Hospitalist Progress Note ---
Date of Service May 22, 2022 Assessment & Plan (1) Acute stroke due to ischemia: Plan: 76-year-old male with a past medical history including hyperlipidemia, hypertension, allergic rhinitis, anxiety, arthritis, chronic rhinitis, LVH, left inguinal hernia, LV dysfunction, erectile dysfunction, mild aortic insufficiency, mild mitral regurgitation, PVCs, rosacea, moderate KASEY, nasal septal deviation, RLS, right knee osteoarthritis with TKA who presented due to sudden-onset right-sided weakness and speech difficulties. Acute stroke -Status post TNKase begun in the ED -- no complications -Initial CT-head without evidence of hemorrhage, mass effect, or evidence of acute territorial ischemia -CTA brain/neck unremarkable -MRI brain showing large acute left MCA infarct with thrombosed distal left MCA branch, 3 mm rightward midline shift, no acute intracranial hemorrhage -Repeat CT head 24h post TNK showing large acute left MCA infarct with progressively worsened cytotoxic edema, 4mm rightward midline shift, thrombosed distal branch of left MCA, no acute intracranial hemorrhage -Neuro consulted -ok to continue ASA. would not start DAPT due to high risk for bleed given the size of stroke. -consult cardiology for PFO closure evaluation. -do get repeat noncon CT head again in about 48 hrs. -rehab and PT/OT/speech therapy. -strict BP control with keep SBP below 180. -no longer need for permissive HTN starting tomorrow. 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 -Hold HCTZ, olmesartan as current BP relatively well-controlled off of meds -PRN labetalol for SBP > 180 Hyperlipidemia -Restart atorvastatin 80 mg -Lipid panel showing TG 155, total cholesterol 124, LDL 63, HDL 30 DM2 -not on therapy -A1c pending -Sliding scale with ICU protocol BPH with LUTS -Hold tamsulosin -Han in place -Does have some hematuria, which seems to have been present prior to hospitalization -Consider Urology consult if not improving -Monitor urine output closely GERD -IV Pantoprazole RLS -Hold ropinirole ED -Hold sildenafil CODE STATUS: FULL DVT ppx: SCDs, chemoppx contraindicated for 24h after TNKase Dispo: Telemetry, PT/OT evals pending for DC planning Diet: Heart healthy, mildly thick (nectar), pureed per Speech (2) Hypertension: (3) Hyperlipidemia: (4) GERD (gastroesophageal reflux disease): (5) BPH w urinary obs/LUTS: Admission and Anticipated Discharge Date Admission Date: May 20, 2022 Supervising Physician Co-Signing Physician Notes I personally examined the patient and verified all rodriguez points of history and exam, discussed case, and agree with decision making with Dr Martínez Seen during PT. Able to move right leg, follows commands somewhat but also somewhat irregularly. Vitals noted, in general he is in no distress, right facial droop, right arm weakness, expressive aphasia. Hard to gauge receptiveness. CVAright-sided weakness and aphasiapost TNKcontinue follow-through per protocol. Appreciate neurology and ICU input. PFOand embolic appearing stroke quite concerningliterature would suggest antiplatelet, but certainly overall situation seems at least suspicious to warrant anticoagulationconsult cardiology. PT/OT/speech eval and treat. Anticipate need for rehab after discharge otherwise as above Subjective Seen at bedside. Still with expressive aphasia hard to tell if he is actually able to understand others or not. When asked if he could move his right arm and leg he did move them both but upon more directed commands such as squeezing or wiggling his toes, he seemed to not be able to follow. Shakes head "no" when asked if any pain, CP, palp, SOB, cough, n/v, abd pain, f/c, JACOB, dizziness. Review of Systems Review of Systems: All systems reviewed & are unremarkable except as noted in Subjective Physical Exam Physical Exam: GENERAL: WD/WN, NAD HEENT: PERRL, EOMI. Moist mucous membranes. CHEST/LUNGS: CTAB A/P. No crackles, wheezes, rales, rhonchi. HEART: RRR. No m/g/r. No carotid bruits. EXTREMITIES: No cyanosis, no clubbing, no edema SKIN: Warm and dry. No rashes or lesions. NEUROLOGIC: Moving all extremities but more limited on right side. Expressive aphasia. Results & Data Results & Data ([facility]) Vital Signs (Past 12 Hours) Vital Signs Temp Pulse Pulse Resp BP BP Pulse Ox 05/22/22 06:00 63 22 143/52 H 98 05/22/22 05:00 56 L 13 143/93 H 95 05/22/22 04:00 54 L 16 122/75 95 05/22/22 03:00 59 L 20 145/61 H 95 05/22/22 02:00 52 L 21 142/62 H 96 05/22/22 01:00 59 L 23 132/47 L 94 05/22/22 00:00 56 L 19 97/54 L 93 05/21/22 23:00 65 9 L 138/65 94 05/22/22 00:00 48 L 05/21/22 22:00 63 12 154/66 H 96 05/21/22 21:36 59 L 32 H 156/62 H 98 05/21/22 21:00 64 27 H 149/57 H 95 05/21/22 20:01 58 L 26 H 139/86 96 05/21/22 19:01 62 22 162/70 H 98 05/21/22 19:00 60 05/21/22 21:18 37.0 C 63 23 149/57 H 95 05/21/22 20:18 37.0 C 61 17 139/86 96 05/21/22 19:18 37.0 C 62 20 162/70 H 98 O2 Del Method 05/22/22 06:00 05/22/22 05:00 05/22/22 04:00 05/22/22 03:00 05/22/22 02:00 05/22/22 01:00 05/22/22 00:00 05/21/22 23:00 05/22/22 00:00 05/21/22 22:00 05/21/22 21:36 05/21/22 21:00 05/21/22 20:01 05/21/22 19:01 05/21/22 19:00 05/21/22 21:18 Room Air 05/21/22 20:18 Room Air 05/21/22 19:18 Room Air Resident Activity Tracking Resident Involvement: Resident Care Provided Care Provided: Adult Hospital Medicine
[2022-05-22] MEDS: NSS + 20MEQ KCL 20 MEQ/1,000 ML BAG IV SCH ×2 (08:25→17:42)
[2022-05-22] MEDS ORDERED: ASPIRIN 81 MG ECTAB PO SCH ×2 (09:00)
--- NOTE | 2022-05-22 09:28 | Neurology Progress Note ---
Date of Service May 22, 2022 Assessment & Plan (1) Acute stroke due to ischemia: Plan Neurology Progress Note Assessment & Plan: Impression:pt with large left MCA ischemic stroke, s/p TNKase. pt with rt hemiparesis and global aphasia. his repeat CT head is stable and no suggestion of bleed. expected finding of cytotoxic edema. Clinically stable overall. 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 he is not candidate for thrombectomy or intervention given location and completed stroke. Recommendations: -ok to continue ASA. would not start DAPT due to high risk for bleed given the size of stroke. -consult cardiology for PFO closure evaluation. do get repeat noncon CT head again in about 48 hrs. continue rehab and PT/OT/speech therapy. strict BP control with keep SBP below 180. no longer need for permissive HTN starting tomorrow. Dr. William Foote MD [facility] Neurology Subjective: Patient Seen and Examined. The notes from the last 24 hours were reviewed.pt stable overall. no suggestion of worsening symptoms. Review of Systems: Per HPI and prior note. Physical Exam: Neuro: Level of consciousness:Alert and appropriate, still with dense global aphasia but does seems to understand simple instruction. nonfluent speech with mumbling sounds. Cranial Nerves:rt face droop. PERRL, tongue midline, hearing intact, shrugs shoulders Strength:5/5 throughout left side. RUE: 4-/5 t/o and RLE 4+/5 t/o. Sensation to light touch: Intact bilaterally grossly. Meds: See chart I personally reviewed all of the medications Chart reviewed Total time spent: 50 minutes (this includes chart review); more than 50% time spent in counseling or coordination of care. Admission and Anticipated Discharge Date Admission Date: May 20, 2022 Results & Data ([facility]) Vital Signs (Past 12 Hours) Vital Signs Temp Pulse Resp BP Pulse Ox O2 Del Method 05/22/22 08:00 62 24 98 05/22/22 07:01 48 L 14 98 Room Air 05/22/22 07:01 123/40 L 05/22/22 07:00 47 L 14 95 05/22/22 06:01 143/52 H 05/22/22 06:01 67 12 97 05/22/22 08:12 37 C 05/22/22 07:18 48 L 05/22/22 06:00 63 22 143/52 H 98 05/22/22 05:00 56 L 13 143/93 H 95 05/22/22 04:00 54 L 16 122/75 95 05/22/22 03:00 59 L 20 145/61 H 95 05/22/22 02:00 52 L 21 142/62 H 96 05/22/22 01:00 59 L 23 132/47 L 94 05/22/22 00:00 56 L 19 97/54 L 93 05/21/22 23:00 65 9 L 138/65 94 05/22/22 00:00 48 L 05/21/22 22:00 63 12 154/66 H 96 05/21/22 21:36 59 L 32 H 156/62 H 98
[2022-05-22] MEDS: ATORVASTATIN 40 MG TAB PO SCH (10:12)
[2022-05-22] MEDS: ASPIRIN 81 MG CHEW PO SCH (10:12)
[2022-05-22] MEDS: HEPARIN SOD 5,000 UNIT/0.5 ML VIAL SQ SCH ×2 (10:12→20:51)
[2022-05-22] MEDS: PANTOprazole 40 MG in SYRINGE 0 ML IV SCH (11:45)
--- NOTE | 2022-05-22 12:38 | Cardiology Consultation ---
Date of Consultation May 22, 2022 History of Present Illness Reason for Consultation: PFO seen on echocardiogram status post CVA Attending Physician: Shivam Santos DO History of Present Illness The history is obtained from the chart as well as the patient's family as the patient has an aphasia. The patient underwent ventral hernia repair at [facility] in [place] on approxi mately 20 April of this year. Unfortunately due to complications during the procedure he was unable to swallow which slowly improved but he ended up spending 10 days in the hospital. He came home and late April and his family notes he was not as active as usual as 1 would have anticipated. He started walking on the treadmill which was his usual routine within the last week or so. He was not on anticoagulation when he was discharged from [facility]. There is no family history of DVT or pulmonary embolism nor hypercoagulable state according to the family. Currently he has a pretty significant aphasia with right-sided weakness. He did receive TNK in the emergency room. He is improving from when he came in 2 days ago. His echocardiogram is consistent with at least a moderate if not large size PFO with right to left shunting seen with regular respiration. His history was reviewed and he does have a history of hypertension and hyperlipidemia. His imaging of his carotids and head and neck vessels are negative for any significant plaque. 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 The rest of a complete review systems otherwise negative Allergies Allergy/AdvReac Type Severity Reaction Status Date / Time No Known Drug Allergies Allergy Verified 03/22/22 11:34 Home Medications Medication Instructions Recorded Confirmed Type famotidine 20 mg tablet 20 mg PO Q2D 05/13/20 03/22/22 History azelastine 205.5 mcg (0.15 %) 2 spray intranasal BID PRN sinus 01/01/21 03/22/22 Rx nasal spray congestion #30 mL fluticasone propionate 50 2 spray intranasal BID PRN sinus 01/01/21 03/22/22 Rx mcg/actuation nasal congestion #16 grams spray,suspension (Flonase Allergy Relief) sildenafil 100 mg tablet 100 mg PO DAILY PRN sexual 01/01/21 03/22/22 Rx activity #36 tabs atorvastatin 80 mg tablet 80 mg PO QAM #90 tabs 10/15/21 03/22/22 Rx hydrochlorothiazide 25 mg tablet 25 mg PO QAM #90 tabs 10/15/21 03/22/22 Rx montelukast 10 mg tablet 10 mg PO QAM #90 tabs 11/04/21 03/22/22 Rx amoxicillin 875 mg-potassium 1 tab PO BID 10 days #20 tabs 03/22/22 03/22/22 Rx clavulanate 125 mg tablet ropinirole 0.5 mg tablet 1 mg PO DAILY 03/22/22 History tamsulosin 0.4 mg capsule cap PO 03/22/22 03/22/22 History olmesartan 40 mg tablet 40 mg PO DAILY #90 tabs 05/16/22 Rx Patient History Medical History Cardiac murmur Mild to moderate AR on 05/20/20 ECHO Follows only with cardio PRN GERD (gastroesophageal reflux disease) Well controlled and stable Hearing loss No hearing aids History of anesthesia reaction Lap hernia repair 05/2018 had urinary retention- olson catheter placed- no issues with other surgeries History of fainting NOV 2017- near syncope - had OP eval by neurology and cardiology, ruled vasovagal, no additional w/u needed-NO RECENT ISSUES History of skin cancer S/p removal Hyperlipidemia Hypertension Restless leg syndrome Mild/occasionally Sleep apnea cpap Surgical History History of arthroscopy of right knee History of cataract surgery bilateral History of colonoscopy with polypectomy History of hernia repair X2 S/P laparoscopic hernia repair ventral hernia repair with mesh Family History Father Leukemia Grandfather (Maternal) Myocardial infarction Mother Hearing loss Other No family history of adverse response to anesthesia No family history of bleeding disorder Denies family history of Ovarian cancer Prostate cancer Breast cancer Colorectal cancer Social History Smoking Status: Unknown if ever smoked Tobacco Type: Cigars Cigarettes Per Day: 1 CIGAR A WEEK; Second Hand Exposure: Yes (Parents SMOKED); Hx Alcohol Use: Yes Alcohol type: beer Alcohol Intake Frequency: 4 or More x per/Week Alcohol Intake Frequency Comment: 1 or 2 drinks a day Hx Substance Use: No Preferred Language: [place] Communication Ability: Impaired Communication Ability Comment: aphasia Visual Impairment: No Limitations Hearing Ability: Normal Mill Tender Required: No Beliefs That Will Affect Care: None marital status: Current Living Situation: Spouse current occupational status: retired Other Information That Helps Us Care for You: No Feels Safe at Home: Yes Safety Concerns: Feels Safe At This Time Childhood Exposure to Second-Hand Smoke: Yes Dental Care, Regularly: Yes Physical Activity Frequency: 1-2 Times per Week Physical Activity Frequency Comment: therapy; 60 mins Seatbelt Use: always Sunscreen Use: Yes Assistive Devices: None Results & Data ([facility]) Vital Signs (Past 12 Hours) Vital Signs Temp Pulse Pulse Resp BP BP Pulse Ox 05/22/22 12:17 36.7 C 56 L 18 142/62 H 97 05/22/22 08:00 62 24 98 05/22/22 07:01 48 L 14 98 05/22/22 07:01 123/40 L 05/22/22 07:00 47 L 14 95 05/22/22 06:01 143/52 H 05/22/22 06:01 67 12 97 05/22/22 08:12 37 C 05/22/22 07:18 48 L 05/22/22 06:00 63 22 143/52 H 98 05/22/22 05:00 56 L 13 143/93 H 95 05/22/22 04:00 54 L 16 122/75 95 05/22/22 03:00 59 L 20 145/61 H 95 05/22/22 02:00 52 L 21 142/62 H 96 05/22/22 01:00 59 L 23 132/47 L 94 O2 Del Method 05/22/22 12:17 Room Air 05/22/22 08:00 05/22/22 07:01 Room Air 05/22/22 07:01 05/22/22 07:00 05/22/22 06:01 05/22/22 06:01 05/22/22 08:12 05/22/22 07:18 05/22/22 06:00 05/22/22 05:00 05/22/22 04:00 05/22/22 03:00 05/22/22 02:00 05/22/22 01:00 he is awake and alert and he nods his head to questions and seems to understand the answers HEENT 2+ carotid upstrokes no evidence of carotid bruits Lungs: Clear to auscultation bilaterally no rales rhonchi or wheezing Heart: Regular rate and rhythm no appreciable systolic murmurs abdomen soft and tenderness and a positive bowel sounds extremities: No clubbing cyanosis or edema His inpatient records were reviewed Echocardiogram normal biventricular size and function; trileaflet aortic valve with mild aortic insufficiency, PFO as discussed above IMPRESSIONS: 1. Left MCA stroke status post TNK 2. Recent extended hospitalization for ventral hernia repair with a 10-day hospitalization 3. PFO seen on echocardiogram which is at least moderate if not large in size 4. No evidence of significant carotid or intracranial disease 5. Hypertension 6. Hyperlipidemia As I discussed with the family if you look at PFO closure 1 first needs to rule out secondary causes for the patient having had a stroke. This would include atrial fibrillation and he will need long-term monitoring when he leaves the hospital with at least a 4-week event recorder and possibly an implantable loop recorder. Second there is concern based on his history that he might of had a DVT even though he had no leg discomfort or swelling in his legs but he did have a recent 10-day hospitalization with limited mobility up until the last week or so. This raises the possibility that he had a DVT that ultimately crossed the PFO and led to having a stroke. If this is the case then long-term anticoagulation would be recommended not PFO closure. If you look at the data for PFO closure it only benefits those with large PFO's with no other cause for stroke and the study only looked at patients who are under the age of 65. The absolute risk reduction is in the range of 3 to at most 4% with regards to preventing future strokes with a 3 to 4% risk of atrial fibrillation associated with closure. The feeling has been that if you are over the age of 65 there is usually some thrombotic reason for 1 stroke. I discussed with the family that or what he emotionally wants to find an answer and fix something so that it does not happen again. At this point I would image his legs to rule out a DVT. As I discussed with the family it is quite possible if he had a DVT it is no longer there and unfortunately went to his brain. If radiology feels that they can adequately do a CTV or MRV of his pelvic veins with appropriate contrast timing it would not be unreasonable. I would also consider hypercoagulable work-up. All this was discussed with the primary service, the family and nursing.
--- NOTE | 2022-05-22 13:51 | Billing Data ---
Date of Service May 22, 2022 Coding Level of Care Code 92601 SUB INP/OBS CARE
--- NOTE | 2022-05-22 15:06 | Electrocardiogram Report ---
Test Reason : Blood Pressure : / mmHG Vent. Rate : 054 BPM Atrial Rate : 054 BPM P-R Int : 152 ms QRS Dur : 080 ms QT Int : 468 ms P-R-T Axes : 058 -36 -16 degrees QTc Int : 443 ms Sinus bradycardia Left axis deviation Nonspecific T wave abnormality Abnormal ECG When compared with ECG of 21-MAY-2022 10:14, No significant change was found Confirmed by Travis Aguirre ([id number]) on 05/22/2022 3:05:31 PM Referred By: REFERRED SELF Confirmed By:Travis Aguirre
--- NOTE | 2022-05-22 18:32 | Communication Note ---
Date of Service: May 22, 2022 Received message from RN at 18:00 that patient was having some new onset left leg jerking/twitching, which he denies doing. Evaluated patient at bedside and was able to corroborate/witness the left leg jerking/twitching. Patient intermittently dorsiflexing & plantarflexing at the ben as well as having contractions of the calf muscles only in the left leg. When asked if he was doing this or if it was in response to any pain he shook his head "no" and tried to verbalize something but due to aphasia was unable to. His mental status is unchanged and he was able to follow simple commands including smiling, sticking out tongue, squeezing with his left hand, and moving right arm. His pupils were equal and reactive to light. Due to inability to perform in depth exam or reliably communicate with the patient, we elected to order a stat head CT to rule out potential bleed. Neurology was contacted and recommended Keppra 500mg BID due to possibility of this being focal seizure -- however, benign fasciculations could present similarly. Keppra 500mg IV q12H was ordered. CT head showed A large evolving left MCA territory infarct is similar in ap pearance to yesterday. Surrounding edema is unchanged to minimally increased. Minimal left to right midline shift is again noted. There is no hemorrhagic conversion. Will continue to monitor for now. Patient's made aware by phone and verbalized understanding. Resident Activity Tracking Resident Involvement: Resident Care Provided Care Provided: Adult [facility] Medicine
--- NOTE | 2022-05-22 18:46 | CT Scan Report ---
CT SCAN OF THE BRAIN WITHOUT IV CONTRAST CLINICAL HISTORY: Stroke status post TPA. COMPARISON STUDY: CT and MRI of the brain dated 05/21/2022. TECHNIQUE: Unenhanced axial CT scan of the brain is performed from the vertex to the skull base. A do se lowering technique was utilized adhering to the principles of ALARA. CT DOSE: 537.48 mGy.cm FINDINGS: Brain parenchyma: There is a large evolving left MCA territory infarct. Surrounding edema is unchange d and modestly increased from yesterday. Hyperdense thrombus is suggested within a peripheral branch of the left MCA. There is effacement of the overlying cortical sulci. No hemorrhage is identified. Mi nimal left to right midline shift is similar to previous. There is mild angiographic change. No extra -axial fluid collection is seen. Ventricles, sulci, cisterns: Prominent secondary to involutional change. Intracranial vasculature: There is atherosclerotic calcification of the cavernous carotid arteries.. Calvarium: Unremarkable. Sinuses and mastoids: The visualized paranasal sinuses are clear. The mastoid air cells are well pneu matized. Orbits: The bony orbits are grossly intact. There are bilateral ocular lens implants. IMPRESSION: 1. A large evolving left MCA territory infarct is similar in appearance to yesterday. 2. Surrounding edema is unchanged to minimally increased. Minimal left to right midline shift is agai n noted. 3. There is no hemorrhagic conversion. ACT 112: Negative or not required by law. Electronically signed by: Israel Simmons M.D. 05/22/2022 6:44 PM
[2022-05-22] MEDS: levETIRAcetam 500 MG in 0.9 % SODIUM CHLORIDE 100 ML IV SCH (18:50)
[2022-05-22] MEDS: ACETAMINOPHEN 1000 MG/100 ML IV IV PRN (22:24)
[2022-05-23] MEDS: NSS + 20MEQ KCL 20 MEQ/1,000 ML BAG IV SCH ×3 (03:49→23:22)
[2022-05-23 05:41] LABS: Basophils # (auto) 0.01 K/uL (0-0.2); Basophils % (auto) 0.2 %; Eosinophils # (auto) 0.12 K/uL (0-0.50); Eosinophils % (auto) 2.5 %; Hematocrit (blood only) 35.9 % (42.0-52.0); Hemoglobin 11.8 g/dl (14.0-18.0); Immature Granulocytes # (auto) 0.02 K/uL (0.01-0.20); Immature Granulocytes % (auto) 0.4 %; Lymphocytes # (auto) 1.64 K/uL (1.2-3.4); Mean Corpuscular Hgb Conc 32.9 g/dL (32.0-36.0); Mean Corpuscular Volume 82.2 fL (80.0-100.0); Monocytes # (auto) 0.39 K/uL (0.11-0.59); Monocytes % (auto) 8.1 %; Neutrophils # (auto) 2.65 K/uL (1.40-6.50); Neutrophils % (auto) 54.8 %; Platelet Count 158 K/uL (130-400); RDW Coefficient of Variation 14.3 % (11.5-14.5); RDW Standard Deviation 42.4 fL (36.4-46.3); Red Blood Count 4.37 M/uL (4.70-6.10); White Blood Count 4.83 K/ul (4.8-10.8)
[2022-05-23 06:00] LABS: Albumin Level 3.7 gm/dl (3.4-5.0); BUN Creatinine Ratio 10.8 (10-20); Bilirubin Direct 0.2 mg/dl (0-0.2); Bilirubin,Total 1.3 mg/dl (0.2-1.0); Calcium 8.8 mg/dl (8.5-10.1); Creatinine Clr Calc Pharmacy 100.7 ml/min; Est GFR (African American) 110.3 ml/min; Est GFR (Non-African American) 95.2 ml/min; Magnesium 2.1 mg/dl (1.7-2.4); Phosphorus 3.2 mg/dl (2.5-4.9); Potassium 3.9 mmol/L (3.5-5.1); Total Protein 5.9 gm/dl (6.0-8.3)
[2022-05-23 06:20] LABS: INR 1.1 (0.9-1.1); Partial Thromboplastin Time 27.4 Seconds (21.0-31.0); Prothrombin Time 11.8 Seconds (9.0-12.0)
[2022-05-23] MEDS: levETIRAcetam 500 MG in 0.9 % SODIUM CHLORIDE 100 ML IV SCH ×2 (06:29→18:13)
--- NOTE | 2022-05-23 07:12 | Hospitalist Progress Note ---
Date of Service May 23, 2022 Assessment & Plan (1) Acute stroke due to ischemia: Plan: 76-year-old male with a past medical history including hyperlipidemia, hy pertension, allergic rhinitis, anxiety, arthritis, chronic rhinitis, LVH, left inguinal hernia, LV dysfunction, erectile dysfunction, mild aortic insufficiency, mild mitral regurgitation, PVCs, rosacea, moderate KASEY, nasal septal deviation, RLS, right knee osteoarthritis with TKA who presented due to sudden-onset right-sided weakness and speech difficulties. Acute stroke -Status post TNKase begun in the ED -- no complications -Initial CT-head without evidence of hemorrhage, mass effect, or evidence of acute territorial ischemia -CTA brain/neck unremarkable -MRI brain showing large acute left MCA infarct with thrombosed distal left MCA branch, 3 mm rightward midline shift, no acute intracranial hemorrhage -Repeat CT head 24h post TNK showing large acute left MCA infarct with progressively worsened cytotoxic edema, 4mm rightward midline shift, thrombosed distal branch of left MCA, no acute intracranial hemorrhage -Neuro consulted -continue ASA. ok to start DAPT with Plavix following CT tomorrow -consult cardiology for PFO closure evaluation, recommendation: evaluate for secondary stroke risks (afib, will require 4 wk monitor, no DVT on doppler at this time) -do get repeat noncon CT head again in about 24 hrs. (05/24) -rehab and PT/OT/speech therapy. -strict BP control with keep SBP below 180 w/ PRN labetalol -no longer need for permissive HTN -Continue atorvastatin 80mg daily -- TG 155, chol 124, LDL 63, HDL 30 -ASA 81mg daily -A1c pending -Echocardiogram showing mild concentric LVH, EF 55 to 60%, moderate size PFO with bubbles easily crossing from the right atrium to the left atrium -Consult Cardiology re: PFO - recommends hypercoagulable panel, ordered -PT/OT evals pending -Stable for downgrade from ICU to telemetry Left Leg Fasciculations - Likely benign fasciculations in the setting of post-stroke, concern of possible focal seizures - Per neurology recommendation, Keppra 500 BID for one week Hypertension -Permissive hypertension 24-48 post stroke/TNK -Then goal SBP 130 or below charge lpn -Hold HCTZ, olmesartan as current BP relatively well-controlled off of meds -PRN labetalol for SBP > 180 Hyperlipidemia -Restart atorvastatin 80 mg -Lipid panel showing TG 155, total cholesterol 124, LDL 63, HDL 30 DM2 -not on therapy -A1c pending -Sliding scale with ICU protocol BPH with LUTS -Hold tamsulosin -Han in place -Does have some hematuria, which seems to have been present prior to hospitalization -Consider Urology consult if not improving -Monitor urine output closely GERD -IV Pantoprazole RLS -Hold ropinirole ED -Hold sildenafil CODE STATUS: FULL DVT ppx: SCDs, Heparin 5,000 subq Q12 Dispo: Telemetry, PT/OT evals pending for DC planning, likely to rehab Diet: Heart healthy, mildly thick (nectar), pureed per Speech (2) Hypertension: (3) Hyperlipidemia: (4) GERD (gastroesophageal reflux disease): (5) BPH w urinary obs/LUTS: Admission and Anticipated Discharge Date Admission Date: May 20, 2022 Supervising Physician Co-Signing Physician Notes Attending attestation Pt seen and examined in concert with Dr. Mcfarland, St. Dr. Daniel. In agreement with the documented findings as noted in the documentation with any exceptions or additions as noted here. Sitting in chair at bedside with ongoing aphasia limiting communication but with enthusiasm for same. Patient's daughter at bedside providing interval history an d questions from patient. On examination, S1/S2 nl RRR no MCG. CTAB. Abd NT/ND BS+ve. Str 3/5 on the RUE though question re: instruction following. Left MCA CVA s/p TNKase - cardiology, neurology consult - continue ASA, start Plavix in AM. HTN control w/ restart home meds, labetolol PRN, uptitration of medication regimen w/ frequent PRN need. Hypercoag eval. Telemetry with event monitoring on discharge. PFO in the setting of CVA - agree w/ r/o other causes aside from PFO - reviewed doppler and imaging with family at bedside as well as upcoming evaluation Left leg fasciculations - no recurrent episodes. Agree w/ neurology, continue Keppra x 7 days then D/C Else see resident documentation as noted. Subjective Gene Sierra is 76-year-old male with a past medical history including hyperlipidemia, hypertension, mild aortic insufficiency, mild mitral regurgitation, PVCs, moderate KASEY, RLS, and prediabetes. He is on hospital day 3 presenting with aphasia and right sided arm and leg weakness and hypertensive found to have a Left MCA stroke. HPI is limited by aphasia. Patient appears to comprehend questions and answers with nods/hand gestures. Can mostly follow commands. Feels well and motor symptoms in the arm and leg are improved today. Reports no pain and wishes to go home, aware that he will be going to rehab first. Patient and daughter at bedside counseled on the slow recovery for speech and multidisciplinary approach of rehab/speech/family support necessary. Review of Systems Review of Systems: See HPI Physical Exam Constitutional: WD/WN, vitals as above Eyes: PERRL, conjunctivae normal, anicteric sclerae Respiratory: normal respiratory effort, lungs clear to auscultation Cardiovascular: RRR, no murmur, no edema Gastrointestinal (Abdomen): normal bowel sounds, soft, nontender, no hepatosplenomegaly Musculoskeletal: Right sided arm and leg weakness Neurologic: Right sided facial droop Results & Data Results & Data ([facility]) Vital Signs (Past 12 Hours) Vital Signs Temp Pulse Pulse Resp BP BP Pulse Ox 05/23/22 00:00 37.0 C 59 L 18 167/70 H 97 05/23/22 06:18 37.0 C 60 15 145/49 H 96 05/23/22 00:00 43 L 05/22/22 20:00 37.0 C 59 L 21 159/71 H 96 05/22/22 21:00 63 18 97 05/22/22 20:00 60 20 159/71 H O2 Del Method 05/23/22 00:00 Room Air 05/23/22 06:18 Room Air 05/23/22 00:00 05/22/22 20:00 Room Air 05/22/22 21:00 05/22/22 20:00 Laboratory Results 05/23/22 05:19 05/23/22 05:19
--- NOTE | 2022-05-23 07:19 | Ultrasound Report ---
US venous doppler LE BI CLINICAL HISTORY: cva and PFO TECHNIQUE: Right lower extremity real-time compression venous ultrasound with Color Doppler imaging. Utilizing real-time ultrasonic imaging multiple real time high-resolution ultrasonic images with comp ression and noncompression maneuvers of the deep venous system in addition to color doppler imaging w ere performed from the common femoral vein through the proximal calf veins. COMPARISON: None available at the time of this dictation. FINDINGS/IMPRESSION: Currently there is normal compressibility of the deep venous system from the common femoral vein thro ugh the proximal calf veins. Evaluation of the popliteal vein is limited due to patient positioning. ACT 112: Negative or not required by law. Electronically signed by: Casimiro Hobson M.D. 05/23/2022 7:17 AM
[2022-05-23 07:57] LABS: Estimated Average Glucose 114 mg/dl; Hemoglobin A1C 5.6 % (4.5-5.6)
[2022-05-23] MEDS: ATORVASTATIN 40 MG TAB PO SCH (08:03)
[2022-05-23] MEDS: ASPIRIN 81 MG CHEW PO SCH (08:03)
[2022-05-23] MEDS: HEPARIN SOD 5,000 UNIT/0.5 ML VIAL SQ SCH ×2 (08:03→20:51)
--- NOTE | 2022-05-23 09:09 | Cardiology Progress Note ---
Date of Service May 23, 2022 Assessment & Plan (1) Acute stroke due to ischemia: Plan IMPRESSIONS: 1. Left MCA stroke status post TNK 2. Recent extended hospitalization for ventral hernia repair with a 10-day hospitalization 3. PFO seen on echocardiogram which is at least moderate if not large in size 4. No evidence of significant carotid or intracranial disease 5. Hypertension 6. Hyperlipidemia As was discussed with the family yesterday, prior to considering PFO closure, we first need to rule out secondary causes for the patient having had a stroke. He is having frequent PACs on the monitor and paroxysmal afib will need to be ruled out with long-term monitoring when he leaves the hospital. He will need at least a 4-week event recorder and possibly an implantable loop recorder.There is a possibility he had a DVT given his recent 10 day hospitalization and he possibility fo rebecca to cross the PFO and lead to his stroke. At this point his LE doppler was negative. If you look at the data for PFO closure it only benefits those with large PFO's, with no other cause for stroke, and the study only looked at patients who are under the age of 65. The absolute risk reduction is in the range of 2-3 with regards to preventing future strokes, with a 3 risk of atrial fibrillation associated with closure. The feeling has been that if you are over the age of 65 there is usually some thrombotic reason for a stroke. We will discuss his case with the structural team. Recommend hypercoagulable work-up. SEE ADDENDUM FROM 5:30 PM today. Admission and Anticipated Discharge Date Admission Date: May 20, 2022 Subjective Mr. Sierra has profound aphasia but is able to answer with head nods yes and no and seems to understand me well. He is not in pain. SR/SB on the monitor with frequent PACs. Review of Systems Review of Systems: All systems reviewed & are unremarkable except as noted in HPI & below Physical Exam Constitutional: WD/WN, vitals as above Respiratory: normal respiratory effort, lungs clear to auscultation Cardiovascular: RRR, no murmur, no edema Musculoskeletal: right arm weakness Neurologic: moves all extremities and awake Speech / Cognition: + expressive aphasia Results & Data ([facility]) Vital Signs (Past 12 Hours) Vital Signs Temp Pulse Pulse Resp BP Pulse Ox O2 Del Method 05/23/22 08:00 Room Air 05/23/22 08:00 43 L 05/23/22 00:00 37.0 C 59 L 18 167/70 H 97 Room Air 05/23/22 06:18 37.0 C 60 15 145/49 H 96 Room Air 05/23/22 00:00 43 L
[2022-05-23 09:19] LABS: iSTAT Creatinine 0.8 mg/dl (0.6-1.3); iSTAT Hemoglobin 13.3 g/dl (14.0-18.0); iSTAT Ionized Calcium 1.11 mmol/l (1.12-1.32)
--- NOTE | 2022-05-23 12:22 | Neurology Progress Note ---
Date of Service May 23, 2022 Assessment & Plan (1) Acute stroke due to ischemia: Plan Neurology Progress Note Assessment & Plan: Impression:pt with large left MCA ischemic stroke, s/p TNKase. pt with rt hemiparesis and global aphasia. his repeat CT head is stable and no suggestion of bleed. expected finding of cytotoxic edema. Clinically stable overall. he will require terminal manager rehab. he is not candidate for thrombectomy or intervention given location and completed stroke. PFO noted and cardiology seen pt and will discuss future options. Agree that he will need terminal manager cardiac monitoring. Recommendations: -ok to continue ASA for now. get Repeat CT head tomorrow and it no bleed and stable, ok to start DAPT (ASA and plavix) for at least 90 days. if he found to have arrhythmia/atrial fib, will need assisted anticoagulation as recommended by cardiology. continue rehab and PT/OT/speech therapy. strict BP control with keep SBP below 180. no longer need for permissive HTN Dr. William Foote MD [facility] Neurology Subjective: Patient Seen and Examined. The notes from the last 24 hours were reviewed.pt stable overall. no suggestion of worsening symptoms. Review of Systems: Per HPI and prior note. Physical Exam: Neuro: Level of consciousness:Alert and appropriate, still with dense global aphasia but does seems to understand simple instruction. nonfluent speech with mumbling sounds. Cranial Nerves:rt face droop. PERRL, tongue midline, hearing intact, shrugs shoulders Strength:5/5 throughout left side. RUE: 4-/5 t/o and RLE 4+/5 t/o. Sensation to light touch: Intact bilaterally grossly. Meds: See chart I personally reviewed all of the medications Chart reviewed Total time spent: 50 minutes (this includes chart review); more than 50% time spent in counseling or coordination of care. Admission and Anticipated Discharge Date Admission Date: May 20, 2022 Results & Data ([facility]) Vital Signs (Past 12 Hours) Vital Signs Temp Pulse Pulse Resp BP Pulse Ox O2 Del Method 05/23/22 12:03 36.8 C 64 20 173/52 H 20 L Room Air 05/23/22 08:00 37.0 C 56 L 20 164/90 H 96 Room Air 05/23/22 08:00 Room Air 05/23/22 08:00 43 L 05/23/22 06:18 37.0 C 60 15 145/49 H 96 Room Air
[2022-05-23] MEDS: PANTOprazole 40 MG in SYRINGE 0 ML IV SCH (12:26)
[2022-05-23] MEDS ORDERED: OLMESARTAN MEDOXOMIL 40 MG TAB PO SCH (13:45)
[2022-05-23] MEDS: hydroCHLOROthiazide 25 MG TAB PO SCH (14:44)
[2022-05-23] MEDS: ACETAMINOPHEN 1000 MG/100 ML IV IV PRN (14:44)
[2022-05-23] MEDS: LOSARTAN POTASSIUM 50 MG TAB PO SCH (16:49)
--- NOTE | 2022-05-23 17:36 | Cardiology Progress Note ---
Date of Service May 23, 2022 Assessment & Plan Admission and Anticipated Discharge Date Admission Date: May 20, 2022 Results & Data ([facility]) Vital Signs (Past 12 Hours) Vital Signs Temp Pulse Pulse Resp BP BP Pulse Ox 05/23/22 16:00 63 05/23/22 15:12 37.0 C 59 L 22 184/59 H 98 05/23/22 14:30 37.3 C 55 L 20 174/63 H 97 05/23/22 14:40 37.3 C 56 L 20 154/73 H 97 05/23/22 12:03 36.8 C 64 20 173/52 H 20 L 05/23/22 08:00 37.0 C 56 L 20 164/90 H 96 05/23/22 08:00 05/23/22 08:00 43 L 05/23/22 06:18 37.0 C 60 15 145/49 H 96 O2 Del Method 05/23/22 16:00 05/23/22 15:12 Room Air 05/23/22 14:30 Room Air 05/23/22 14:40 Room Air 05/23/22 12:03 Room Air 05/23/22 08:00 Room Air 05/23/22 08:00 Room Air 05/23/22 08:00 05/23/22 06:18 Room Air Addendum: Spoke to [facility] Structural team 1. R/O Afib after d/c with 4 week event recorder 2. I think we need to consider DOAC and ASA rather than Plavix and ASA as my hunch is that this came from a DVT that is either in his brain or dissolved with TNK 3. If no other source/cause even at 76, structural team would consider closure of large PFO 4.We had discussed YAJAIRA during this hospitalization but he had trauma to his oropharynx 4 weeks ago and no one knows what really happened in [place]; theref ore hold off on YAJAIRA unless ENT wants to look with small camera for any injury first 5. Discussed with family via phone
[2022-05-23] MEDS: rOPINIRole HCL 1 MG TABLET PO SCH (20:51)
[2022-05-24 04:40] LABS: BUN Creatinine Ratio 8.5 (10-20); Basophils # (auto) 0.02 K/uL (0-0.2); Basophils % (auto) 0.4 %; Calcium 8.6 mg/dl (8.5-10.1); Creatinine Clr Calc Pharmacy 92.2 ml/min; Eosinophils # (auto) 0.13 K/uL (0-0.50); Eosinophils % (auto) 2.6 %; Est GFR (African American) 106.4 ml/min; Est GFR (Non-African American) 91.8 ml/min; Hematocrit (blood only) 37.2 % (42.0-52.0); Hemoglobin 12.2 g/dl (14.0-18.0); Immature Granulocytes # (auto) 0.01 K/uL (0.01-0.20); Immature Granulocytes % (auto) 0.2 %; Lymphocytes % (auto) 31.5 %; Magnesium 1.9 mg/dl (1.7-2.4); Mean Corpuscular Hemoglobin 26.8 pg (25.0-34.0); Mean Corpuscular Hgb Conc 32.8 g/dL (32.0-36.0); Mean Corpuscular Volume 81.6 fL (80.0-100.0); Mean Platelet Volume 8.8 fL (9.4-12.4); Monocytes # (auto) 0.37 K/uL (0.11-0.59); Monocytes % (auto) 7.3 %; Neutrophils # (auto) 2.95 K/uL (1.40-6.50); Platelet Count 167 K/uL (130-400); Potassium 3.8 mmol/L (3.5-5.1); RDW Coefficient of Variation 14.3 % (11.5-14.5); RDW Standard Deviation 42.2 fL (36.4-46.3); Red Blood Count 4.56 M/uL (4.70-6.10); White Blood Count 5.08 K/ul (4.8-10.8)
[2022-05-24] MEDS: levETIRAcetam 500 MG in 0.9 % SODIUM CHLORIDE 100 ML IV SCH ×2 (06:37→18:17)
[2022-05-24] MEDS: NSS + 20MEQ KCL 20 MEQ/1,000 ML BAG IV SCH ×2 (06:37→16:43)
--- NOTE | 2022-05-24 07:13 | Hospitalist Progress Note ---
Date of Service May 24, 2022 Assessment & Plan (1) Acute stroke due to ischemia: Plan: 76-year-old male with a past medical history including hyperlipidemia, hy pertension, allergic rhinitis, anxiety, arthritis, chronic rhinitis, LVH, left inguinal hernia, LV dysfunction, erectile dysfunction, mild aortic insufficiency, mild mitral regurgitation, PVCs, rosacea, moderate KASEY, nasal septal deviation, RLS, right knee osteoarthritis with TKA who presented due to sudden-onset right-sided weakness and speech difficulties. Acute stroke -Status post TNKase begun in the ED -- no complications -Initial CT-head without evidence of hemorrhage, mass effect, or evidence of acute territorial ischemia -CTA brain/neck unremarkable -MRI brain showing large acute left MCA infarct with thrombosed distal left MCA branch, 3 mm rightward midline shift, no acute intracranial hemorrhage -Repeat CT head 24h post TNK showing large acute left MCA infarct with progressively worsened cytotoxic edema, 4mm rightward midline shift, thrombosed distal branch of left MCA, no acute intracranial hemorrhage -Neuro consulted -continue ASA, will consider addition of Plavix vs. DOAC for secondary stroke prevention per cardiology's recommendations -consult cardiology for PFO closure evaluation, recommendation: evaluate for secondary stroke risks (afib, will require 4 wk monitor, no DVT on doppler at this time) -Repeat head CT today (48 hours post) showed linear hyperdensities favoring thrombosed vessels >hemorrhagic conversion but continued CT f/u recommended -rehab and PT/OT/speech therapy. -strict BP control with keep SBP below 180 w/ PRN labetalol -no longer need for permissive HTN -Continue atorvastatin 80mg daily -- TG 155, chol 124, LDL 63, HDL 30 -ASA 81mg daily -A1c 5.6 -Echocardiogram showing mild concentric LVH, EF 55 to 60%, moderate size PFO with bubbles easily crossing from the right atrium to the left atrium -Consult Cardiology re: PFO - recommends hypercoagulable panel, ordered -PT/OT evals pending -Stable for downgrade from ICU to telemetry Left Leg Fasciculations - Likely benign fasciculations in the setting of post-stroke, concern of possible focal seizures - Per neurology recommendation, Keppra 500 BID x 7 days Hypertension -Permissive hypertension 24-48 post stroke/TNK -Then goal SBP 130 or below half-way -Hold HCTZ, olmesartan as current BP relatively well-controlled off of meds -PRN labetalol for SBP > 180 Hyperlipidemia -Restart atorvastatin 80 mg -Lipid panel showing TG 155, total cholesterol 124, LDL 63, HDL 30 DM2 -not on therapy -A1c 5.6 -Sliding scale with ICU protocol BPH with LUTS -Hold tamsulosin -Han in place -Does have some hematuria, which seems to have been present prior to hospitalization -Consider Urology consult if not improving -Monitor urine output closely GERD -IV Pantoprazole RLS -Hold ropinirole ED -Hold sildenafil CODE STATUS: FULL DVT ppx: SCDs, Heparin 5,000 subq Q12 Dispo: Telemetry, awaiting rehab approval Diet: Heart healthy, mildly thick (nectar), pureed per Speech (2) Hypertension: (3) Hyperlipidemia: (4) GERD (gastroesophageal reflux disease): (5) BPH w urinary obs/LUTS: Admission and Anticipated Discharge Date Admission Date: May 20, 2022 Supervising Physician Co-Signing Physician Notes Attending attestation Pt seen and examined in concert with Dr. Mcfarland, [facility] Dr[facility]. In agreement with the documented findings as noted in the documentation with any exceptions or additions as noted here. Following commands better with ongoing aphasia but with enthusiastic interaction. On examination, S1/S2 nl RRR no MCG. CTAB. Abd NT/ND BS+ve. Str and res ponsiveness of RUE improved from yesterday's examination Left MCA CVA s/p TNKase with midline shift 2/2 ?cytotoxic edema - cardiology, neurology consult - continue ASA, add Plavix per neurology recommendation. Per neurology, too high risk for addition of DOAC at this time, norma w/ recent CT head. Repeat CT in 24h. HTN - controledl w/ restarted home meds, labetolol PRN PFO in the setting of CVA - agree w/ r/o other causes aside from PFO, hypercoag w/u pending. Left leg fasciculations - no recurrent episodes. continue Keppra x 7 days then D/C Else see resident documentation as noted. Subjective Gene Sierra is 76-year-old male with a past medical history including hyperlipidemia, hypertension, mild aortic insufficiency, mild mitral regur gitation, PVCs, moderate KASEY, RLS, and prediabetes. He is on hospital day 4 presenting with aphasia and right sided arm and leg weakness and hypertensive found to have a Left MCA stroke. HPI is limited by aphasia. Patient appears to comprehend questions and answers with nods/hand gestures. Can mostly follow commands. Feels well and motor symptoms in the arm and leg are improved today. No improvement in speech. Patient and family amenable to rehab vs. long term pending insurance approval. Review of Systems Review of Systems: See HPI Physical Exam Constitutional: WD/WN, vitals as above Eyes: PERRL, conjunctivae normal, anicteric sclerae Respiratory: normal respiratory effort, lungs clear to auscultation Cardiovascular: RRR, no murmur, no edema Gastrointestinal (Abdomen): normal bowel sounds, soft, nontender, no hepatosplenomegaly Neurologic: +Right sided Facial droop, 3/5 right upper extremity, 4/5 right upper extremity Results & Data Results & Data ([facility]) Vital Signs (Past 12 Hours) Vital Signs Temp Pulse Pulse Resp BP Pulse Ox O2 Del Method 05/24/22 04:00 37.0 C 64 19 145/90 H 97 Room Air 05/24/22 00:00 48 L 05/23/22 19:30 Room Air 05/23/22 23:00 37.0 C 93 H 16 154/85 H 93 Room Air Laboratory Results 05/24/22 04:05 05/24/22 04:05
[2022-05-24] MEDS: hydroCHLOROthiazide 25 MG TAB PO SCH (08:07)
[2022-05-24] MEDS: ATORVASTATIN 40 MG TAB PO SCH (08:07)
[2022-05-24] MEDS: HEPARIN SOD 5,000 UNIT/0.5 ML VIAL SQ SCH ×2 (08:08→20:05)
[2022-05-24] MEDS: ASPIRIN 81 MG CHEW PO SCH (08:09)
[2022-05-24] MEDS: LOSARTAN POTASSIUM 50 MG TAB PO SCH (08:31)
--- NOTE | 2022-05-24 09:51 | Cardiology Progress Note ---
Date of Service May 24, 2022 Assessment & Plan (1) Acute stroke due to ischemia: Plan IMPRESSIONS: 1. Left MCA stroke status post TNK 2. Recent extended hospitalization for ventral hernia repair with a 10-day hospitalization 3. PFO seen on echocardiogram which is at least moderate if not large in size 4. No evidence of significant carotid or intracranial disease 5. Hypertension 6. Hyperlipidemia Mr. Sierra's case and PFO was discussed with the [place] structural team resulting in the following recs: 1. R/O Afib after d/c with 4 week event recorder 2. Consider DOAC and ASA rather than Plavix and ASA as my hunch is that this came from a DVT that is either in his brain or dissolved with TNK 3. If no other source/cause even at 76, structural team would consider closure of large PFO 4.We had discussed YAJAIRA during this hospitalization but he had trauma to his rachel pharynx 4 weeks ago and no one knows what really happened in [place]; therefore hold off on YAJAIRA unless ENT wants to look with small camera for any injury first Recommend hypercoagulable work-up. Blood pressure is mildly elevated - per neuro - keep sbp below 180 in the acute period. Admission and Anticipated Discharge Date Admission Date: May 20, 2022 Subjective Mr. Sierra is up to a chair. He appears comfortable. He denies sob, chest pain, palpitations or dizziness. SR on the monitor. No events over night. Review of Systems Review of Systems: All systems reviewed & are unremarkable except as noted in HPI & below Physical Exam Constitutional: WD/WN, vitals as above Respiratory: normal respiratory effort, lungs clear to auscultation Cardiovascular: RRR, no murmur, no edema Neurologic: moves all extremities and awake Speech / Cognition: + expressive aphasia right facial droop right arm weakness Results & Data ([facility]) Vital Signs (Past 12 Hours) Vital Signs Temp Pulse Pulse Resp BP Pulse Ox O2 Del Method 05/24/22 04:00 37.0 C 64 19 145/90 H 97 Room Air 05/24/22 00:00 48 L 05/23/22 23:00 37.0 C 93 H 16 154/85 H 93 Room Air
--- NOTE | 2022-05-24 10:00 | Neurology Progress Note ---
Date of Service May 24, 2022 Assessment & Plan (1) Acute stroke due to ischemia: Plan Neurology Progress Note Assessment & Plan: Impression:pt with large left MCA ischemic stroke, s/p TNKase. pt with rt hemiparesis and global aphasia. Pt clinically doing well and stable. Clinically stable overall. he will require skilled nursing rehab. he is not candidate for thrombectomy or intervention given location and completed stroke. PFO noted and cardiology seen pt and will discuss future options. Agree that he will need joint terminal attack controller cardiac monitoring. Recommendations: -ok to continue ASA for now. get Repeat CT head today and it no bleed and stable, ok to start DAPT (ASA and plavix) for at least 90 days. if he found to have arrhythmia/atrial fib, will need joint terminal attack controller anticoagulation as recommended by cardiology. from neurology stand point, he can move out of ICU. continue rehab and PT/OT/speech therapy. strict BP control with keep SBP below 160. at this point, not much to add from neurology. Dr. William Foote MD [facility] Neurology Subjective: Patient Seen and Examined. The notes from the last 24 hours were reviewed.pt stable overall. no suggestion of worsening symptoms. Review of Systems: Per HPI and prior note. Physical Exam: Neuro: Level of consciousness:Alert and appropriate, still with dense global aphasia but does seems to understand simple instruction. nonfluent speech with mumbling sounds. Cranial Nerves:rt face droop. PERRL, tongue midline, hearing intact, shrugs shoulders Strength:5/5 throughout left side. RUE: 4-/5 t/o and RLE 4+/5 t/o. Sensation to light touch: Intact bilaterally grossly. Meds: See chart I personally reviewed all of the medications Chart reviewed Total time spent: 50 minutes (this includes chart review); more than 50% time spent in counseling or coordination of care. Admission and Anticipated Discharge Date Admission Date: May 20, 2022 Results & Data ([facility]) Vital Signs (Past 12 Hours) Vital Signs Temp Pulse Pulse Resp BP Pulse Ox O2 Del Method 05/24/22 04:00 37.0 C 64 19 145/90 H 97 Room Air 05/24/22 00:00 48 L 05/23/22 23:00 37.0 C 93 H 16 154/85 H 93 Room Air
--- NOTE | 2022-05-24 12:59 | CT Scan Report ---
CT OF THE HEAD WITHOUT CONTRAST CLINICAL HISTORY: stroke s/p TNK, r/o bleed COMPARISON STUDY: Head CT May 22, 2022. CT DOSE: 788.63 mGycm TECHNIQUE: Helical axial images of the head were obtained without IV contrast. Automated exposure con trol was utilized for the study. A dose lowering technique was utilized adhering to the principles o f ALARA. FINDINGS: Note is again made of a large acute left MCA territory infarct. Mass effect is similar to p rior CT with minimal compression of the left lateral ventricle and mild rightward midline shift. Line ar hyperdensity within the infarct likely reflects thrombosed vessel. No definite intracranial hemorr maya is present. Basal cisterns are patent. There are no significant calvarial abnormalities. IMPRESSION: Redemonstration of a large acute left MCA territory infarct. Stable mass effect. Linear hyperdensities within the infarct favor thrombosed vessels. Early hemorrhagic conversion is considere d less likely however continued CT follow-up is recommended to exclude this possibility. ACT 112: Negative or not required by law. Electronically signed by: Rigoberto Keys M.D. 05/24/2022 12:57 PM
[2022-05-24] MEDS: PANTOprazole 40 MG in SYRINGE 0 ML IV SCH (13:39)
[2022-05-24] MEDS: rOPINIRole HCL 1 MG TABLET PO SCH (19:30)
[2022-05-24] MEDS: ACETAMINOPHEN 500 MG TAB PO PRN (21:02)
[2022-05-25] MEDS: NSS + 20MEQ KCL 20 MEQ/1,000 ML BAG IV SCH (02:45)
[2022-05-25] MEDS: ACETAMINOPHEN 500 MG TAB PO PRN ×2 (05:48→20:38)
[2022-05-25] MEDS: levETIRAcetam 500 MG in 0.9 % SODIUM CHLORIDE 100 ML IV SCH (05:48)
[2022-05-25] MEDS: LOSARTAN POTASSIUM 50 MG TAB PO SCH (08:39)
[2022-05-25] MEDS: ATORVASTATIN 40 MG TAB PO SCH (08:39)
[2022-05-25] MEDS: HEPARIN SOD 5,000 UNIT/0.5 ML VIAL SQ SCH ×2 (08:39→20:39)
[2022-05-25] MEDS: hydroCHLOROthiazide 25 MG TAB PO SCH (08:39)
[2022-05-25] MEDS: CLOPIDOGREL BISULFATE 75 MG TAB PO SCH (08:39)
--- NOTE | 2022-05-25 08:41 | Cardiology Progress Note ---
Date of Service May 25, 2022 Assessment & Plan Admission and Anticipated Discharge Date Admission Date: May 20, 2022 Subjective He denies any chest pain chest pressure chest heaviness. [place] any shortness of breath. [place] any palpitations or fluttering. He is a little bit tearful today. It is nice to see that he is moving his right arm and his right leg. He is still suffering from significant speech issues. Results & Data ([facility]) Vital Signs (Past 12 Hours) Vital Signs Temp Pulse Pulse Resp BP BP Pulse Ox 05/25/22 07:38 36.9 C 56 L 22 157/74 H 98 05/25/22 02:37 36.9 C 57 L 15 133/50 L 97 05/24/22 22:00 05/24/22 22:56 57 L 05/24/22 21:58 36.7 C 66 18 162/89 H 96 05/24/22 21:56 50 L 100/50 L 05/24/22 21:33 O2 Del Method 05/25/22 07:38 Room Air 05/25/22 02:37 Room Air 05/24/22 22:00 Room Air 05/24/22 22:56 05/24/22 21:58 Room Air 05/24/22 21:56 05/24/22 21:33 Room Air he is awake and alert and he nods his head to questions and understands the questions HEENT 2+ carotid upstrokes no evidence of carotid bruits Lungs: Clear to auscultation bilaterally no rales rhonchi or wheezing Heart: Regular rate and rhythm no appreciable systolic murmurs abdomen soft and tenderness and a positive bowel sounds extremities: No clubbing cyanosis or edema His inpatient records were reviewed Echocardiogram normal biventricular size and function; trileaflet aortic valve with mild aortic insufficiency, PFO as discussed above IMPRESSIONS: 1. Left MCA stroke status post TNK 2. Recent extended hospitalization for ventral hernia repair with a 10-day hospitalization 3. PFO seen on echocardiogram which is at least moderate if not large in size 4. No evidence of significant carotid or intracranial disease 5. Hypertension 6. Hyperlipidemia As has been previously documented and in discussion with the structural heart disease team at [facility]. they do think he is a potential candidate to close his PFO if we do not find a secondary cause for his stroke. His hypercoagulable profile is currently pending. The initial plan was to attempt a YAJAIRA this admission to further define his anatomy. Unfortunately given his oral trauma in [place] a month ago at this point I would wait. Ultimately the safest option may agree intracardiac echo rather than YAJAIRA. He will need a 4-week event recorder as an outpatient which we can either shipped to him if he is at rehab or arrange for him to be connected in the office. If he were to have atrial fibrillation then chronic anticoagulation will be recommended we would not recommend closing the PFO If he is hypercoagulable again we would recommend chronic anticoagulation and not closing the PFO The question is why did he have a stroke although I cannot prove it I am concerned that he had either a DVT even though he did not have symptoms or he had a pelvic vein clot given his recent surgery and his extended time in the hospital and limited mobility in the first couple of weeks postsurgery. If we think he had a DVT as the cause and he should be anticoagulated and not on dual antiplatelet therapy. Additionally anticoagulation would protect him from a future DVT as he goes through the rehab process. He gets an important conversation between neurology the primary service and cardiology to make this decision. His CAT scan from yesterday does not reveal any hemorrhagic conversion. The goal for now has been a systolic blood pressure under 160 as we switch to more normal blood pressures his losartan could be switched over to valsartan 320 mg daily to provide better blood pressure control without having to add more medication. Once he is discharged we will arrange for follow-up in the office.
[2022-05-25] MEDS: ASPIRIN 81 MG CHEW PO SCH (08:52)
--- NOTE | 2022-05-25 10:22 | Pharmacy Report ---
- Date of Service May 25, 2022 - Pharmacy CVA/TIA Medication Review Medications to Prevent Stroke handout has been added to the patients discharge packet. Antiplatelet(s) * Aspirin 81mg PO daily + clopidogrel 75mg PO daily Cholesterol * High intensity statin: atorvastatin 80 mg daily DVT Prophylaxis * Heparin SQ, SCD knee Therapeutic Anticoagulation * None - currently no evidence/history of AF: decision to anticoagulate pending * Hypercoagulable panel pending * Recent surgery (ventral hernia repair) - possible DVT * Cardiology involved (PFO on echo) * recommend 4 week event recorder as outpatient to rule out A.fib Type 2 Diabetes * Patient does not have T2DM
--- NOTE | 2022-05-25 11:03 | Hospitalist Progress Note ---
Date of Service May 25, 2022 Assessment & Plan (1) Acute stroke due to ischemia: Plan: 76-year-old male with a past medical history including hyperlipidemia, hypertension, allergic rhinitis, anxiety, arthritis, chronic rhinitis, LVH, left inguinal hernia, LV dysfunction, erectile dysfunction, mild aortic insufficiency, mild mitral regurgitation, PVCs, rosacea, moderate KASEY, nasal septal deviation, RLS, right knee osteoarthritis with TKA who presented due to sudden-onset right-sided weakness and speech difficulties. Acute L MCA Ischemic Stroke PFO -s/p TNKase -- no complications -Initial CT head without evidence of hemorrhage, mass effect, or evidence of acute territorial ischemia -CTA brain/neck unremarkable -MRI brain showing large acute left MCA infarct with thrombosed distal left MCA branch, 3 mm rightward midline shift, no acute intracranial hemorrhage -Repeat CT head (05/21): 24h post TNK showing large acute left MCA infarct with progressively worsened cytotoxic edema, 4mm rightward midline shift, thrombosed distal branch of left MCA, no acute intracranial hemorrhage. -Repeat CT head (05/24): Early hemorrhagic conversion is considered less likely however continued CT follow-up is recommended to exclude this possibility. -Repeat CT head (05/25): stable, without hemmorhage -Echocardiogram showing mild concentric LVH, EF 55 to 60%,moderate size PFO with bubbles easily crossing from the right atrium to the left atrium -Neuro consulted -continue ASA. Okay to add plavix. Will cont. DAPT for at least 90 days. -Cardio consulted -evaluate for secondary stroke risks -h/o afib, will require 4 wk monitor, no DVT on doppler at this time -hypercoagulable profile pending -potential candidate to close his PFO if we do not find a secondary cause for his stroke -if he were to have atrial fibrillation or coagulopathy then chronic anticoagulation will be recommended we would not recommend closing the PFO -Cont. high intensity atorvastatin, ASA -PT/OT/speech therapy. Will need half-way rehab. CM working on placement. Left Leg Fasciculations RLS - Likely benign fasciculations in the setting of post-stroke, concern of possible focal seizures - Per neurology recommendation, Keppra 500 BID x7days - Cont. home ropinirole qhs - iron levels low normal, started on iron pills Hypertension -No longer need for permissive hypertension. -Cont. HCTZ, olmesartan -Cardiology consulted: goal for now has been a systolic blood pressure under 160 as we switch to more normal blood pressures his losartan could be switched over to valsartan 320 mg daily to provide better blood pressure control without having to add more medication Hyperlipidemia -Lipid panel showing TG 155, total cholesterol 124, LDL 63, HDL 30 -Cont. atorvastatin 80 mg DM2 -not on therapy -A1c 5.6 -Sliding scale BPH with LUTS -Hold tamsulosin -Previously with mild hematuria, which seems to have been present prior to hospitalization. Consider Urology consult if not improving. -Han removed 05/24 GERD -Transitioned to oral pantoprazole, cont. ED -Hold sildenafil Code Status: full DVT ppx: SCDs, Heparin 5,000 subq Q12 Diet: HH, mildly thick (nectar), pureed Dispo: PCU (2) Hypertension: (3) Hyperlipidemia: (4) BPH w urinary obs/LUTS: (5) GERD (gastroesophageal reflux disease): Admission and Anticipated Discharge Date Admission Date: May 20, 2022 Supervising Physician Co-Signing Physician Notes Attending attestation Pt seen and examined in concert with Dr. Mcfarland, [facility]. Dr. Daniel. In agreement with the documented findings as noted in the documentation with any exceptions or additions as noted here. Following commands with some delay with ongoing aphasia but with enthusiastic interaction. On examination, S1/S2 nl RRR no MCG. CTAB. Abd NT/ND BS+ve. Str and responsiveness of RUE improved from yesterday's examination 4/5 of the RUE excepting the right 2nd digit flexion/ext Left MCA CVA s/p TNKase with midline shift 2/2 ?cytotoxic edema - cardiology, neurology consult - continue ASA, Plavix. Would warrant discussion w/ neurology re: DOAC/ASA vs. DAPT without based on cardiology concerns. HTN - HCTZ, losartan. labetolol PRN PFO in the setting of CVA - agree w/ r/o other causes aside from PFO, hypercoag w/u pending. Left leg fasciculations in the setting of RLS - Continue Keppra x 7 days then D/C, continue home ropinerole qHS and consider alternative management with ongoing symptoms Else see resident documentation as noted. Subjective Pt seen at bedside this morning. Still unable to communicate given acute stroke. Expresses he is doing well with a thumbs up. Review of Systems Review of Systems: Other (acute stroke, expressive aphasia ) Physical Exam Physical Exam: Constitutional: in no acute distress, pleasant. Vitals as above. HEENT: No scleral injection or discharge.Moist mucous membranes. Neck: Supple without lymphadenopathy or thyromegaly. Trachea midline. Lungs: Clear to auscultation bilaterally with good effort. Cardiac: Regular rate and rhythm. No murmurs. Abdomen: Bowel sounds present. Soft, nontender, and nondistended.No guarding. No hepatosplenomegaly. MSK: No cyanosis or clubbing. Extremities motor strength 5/5. Skin: No rashes, warm, dry. Neurologic: +Right sided Facial droop, 3/5 right upper extremity, 4/5 right upper extremity Results & Data Results & Data ([facility]) Vital Signs (Past 12 Hours) Vital Signs Temp Pulse Pulse Resp BP Pulse Ox O2 Del Method 05/25/22 07:38 36.9 C 56 L 22 157/74 H 98 Room Air 05/25/22 02:37 36.9 C 57 L 15 133/50 L 97 Room Air 05/24/22 22:56 57 L Laboratory Results 05/25/22 Range/Units 13:15 Iron 50 (35-175) mcg/dl TIBC 321 (250-450) mcg/dl Unsaturated IBC 271 (155-355) mcg/dl Transferrin % Sat 16 L (20-50) % Ferritin 326.5 (8-388) ng/ml Resident Activity Tracking Resident Involvement: Resident Care Provided Care Provided: Adult Hospital Medicine
--- NOTE | 2022-05-25 11:47 | CT Scan Report ---
CT OF THE HEAD WITHOUT CONTRAST CLINICAL HISTORY: r/o hemorrhagic conversion COMPARISON STUDY: Head CT May 24, 2022. CT DOSE: 691.05 mGy.cm TECHNIQUE: Helical axial images of the head were obtained without IV contrast. Automated exposure con trol was utilized for the study. A dose lowering technique was utilized adhering to the principles o f ALARA. FINDINGS: Large acute left MCA territory infarct is again noted. Mass effect is unchanged with mild c ompression of the left lateral ventricle and minimal rightward midline shift. There is associated sul delilah effacement which is also unchanged. No acute hemorrhage is present. Linear hyperdensities within the infarct are less conspicuous than on prior head CT. Appearance of the brain is unchanged. Basal c isterns are patent. IMPRESSION: Redemonstration of a large left MCA territory acute infarct. Stable mild mass effect. No evidence for hemorrhagic conversion. ACT 112: Negative or not required by law. Electronically signed by: Rigoberto Keys M.D. 05/25/2022 11:46 AM
[2022-05-25] MEDS: PANTOprazole 40 MG TAB PO SCH (12:33)
[2022-05-25 14:09] LABS: Ferritin 326.5 ng/ml (8-388)
[2022-05-25] MEDS ORDERED: FERROUS SULFATE 325 MG TAB PO SCH (15:00)
[2022-05-25] MEDS: levETIRAcetam 500 MG TAB PO SCH (20:39)
[2022-05-25] MEDS: rOPINIRole HCL 1 MG TABLET PO SCH (20:39)
--- NOTE | 2022-05-26 07:03 | Hospitalist Progress Note ---
Date of Service May 26, 2022 Assessment & Plan (1) Acute stroke due to ischemia: Plan: 76-year-old male with a past medical history including hyperlipidemia, hypertension, allergic rhinitis, anxiety, arthritis, chronic rhinitis, LVH, left inguinal hernia, LV dysfunction, erectile dysfunction, mild aortic insufficiency, mild mitral regurgitation, PVCs, rosacea, moderate KASEY, nasal septal deviation, RLS, right knee osteoarthritis with TKA who presented due to sudden-onset right-sided weakness and speech difficulties. Acute L MCA Ischemic Stroke PFO -s/p TNKase -- no complications -Initial CT head without evidence of hemorrhage, mass effect, or evidence of acute territorial ischemia -CTA brain/neck unremarkable -MRI brain showing large acute left MCA infarct with thrombosed distal left MCA branch, 3 mm rightward midline shift, no acute intracranial hemorrhage -Repeat CT head (05/21): 24h post TNK showing large acute left MCA infarct with progressively worsened cytotoxic edema, 4mm rightward midline shift, thrombosed distal branch of left MCA, no acute intracranial hemorrhage. -Repeat CT head (05/24): Early hemorrhagic conversion is considered less likely however continued CT follow-up is recommended to exclude this possibility. -Repeat CT head (05/25): stable, without hemmorhage -Echocardiogram showing mild concentric LVH, EF 55 to 60%,moderate size PFO with bubbles easily crossing from the right atrium to the left atrium -Neuro consulted -continue ASA. Okay to add plavix. Will cont. DAPT for at least 90 days. -Cardio consulted -evaluate for secondary stroke risks -h/o afib, will require 4 wk monitor, no DVT on doppler at this time -hypercoagulable profile pending -potential candidate to close his PFO if we do not find a secondary cause for his stroke -if he were to have atrial fibrillation or coagulopathy then chronic anticoagulation will be recommended we would not recommend closing the PFO -Cont. high intensity atorvastatin, ASA -PT/OT/speech therapy. 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 CM working on placement. Left Leg Fasciculations RLS - Likely benign fasciculations in the setting of post-stroke, concern of possible focal seizures - Per neurology recommendation, Keppra 500 BID x7days - Cont. home ropinirole qhs - iron levels low normal, started on iron pills Hypertension -No longer need for permissive hypertension. -Cont. HCTZ, olmesartan -Cardiology consulted: goal for now has been a systolic blood pressure under 160 as we switch to more normal blood pressures his losartan could be switched over to valsartan 320 mg daily to provide better blood pressure control without having to add more medication Hyperlipidemia -Lipid panel showing TG 155, total cholesterol 124, LDL 63, HDL 30 -Cont. atorvastatin 80 mg DM2 -not on therapy -A1c 5.6 -Sliding scale BPH with LUTS -Hold tamsulosin -Previously with mild hematuria, which seems to have been present prior to hospitalization. Consider Urology consult if not improving. -Han removed 05/24 GERD -Transitioned to oral pantoprazole, cont. ED -Hold sildenafil Code Status: full DVT ppx: SCDs, Heparin 5,000 subq Q12 Diet: HH, mildly thick (nectar), pureed Dispo: PCU (2) Hypertension: (3) Hyperlipidemia: (4) BPH w urinary obs/LUTS: (5) GERD (gastroesophageal reflux disease): Admission and Anticipated Discharge Date Admission Date: May 20, 2022 Subjective Pt seen at bedside this morning. Still unable to communicate given acute stroke. Expresses he is doing well with a thumbs up. Physical Exam Physical Exam: Constitutional: in no acute distress, pleasant. Vitals as above. HEENT: No scleral injection or discharge.Moist mucous membranes. Neck: Supple without lymphadenopathy or thyromegaly. Trachea midline. Lungs: Clear to auscultation bilaterally with good effort. Cardiac: Regular rate and rhythm. No murmurs. Abdomen: Bowel sounds present. Soft, nontender, and nondistended.No guarding. No hepatosplenomegaly. MSK: No cyanosis or clubbing. Extremities motor strength 5/5. Skin: No rashes, warm, dry. Neurologic: +Right sided Facial droop, 3/5 right upper extremity, 4/5 right upper extremity Results & Data Results & Data ([facility]) Vital Signs (Past 12 Hours) Vital Signs Temp Pulse Pulse Resp BP Pulse Ox O2 Del Method 05/26/22 03:35 36.4 C L 57 L 20 167/68 H 96 Room Air 05/25/22 23:26 67 05/25/22 22:29 36.4 C L 54 L 16 149/75 H 97 Room Air
[2022-05-26] MEDS: ATORVASTATIN 40 MG TAB PO SCH (08:03)
[2022-05-26] MEDS: HEPARIN SOD 5,000 UNIT/0.5 ML VIAL SQ SCH (08:04)
[2022-05-26] MEDS: CLOPIDOGREL BISULFATE 75 MG TAB PO SCH (08:04)
[2022-05-26] MEDS: LOSARTAN POTASSIUM 50 MG TAB PO SCH (08:05)
[2022-05-26] MEDS: PANTOprazole 40 MG TAB PO SCH (08:05)
[2022-05-26] MEDS: hydroCHLOROthiazide 25 MG TAB PO SCH (08:05)
[2022-05-26] MEDS: levETIRAcetam 500 MG TAB PO SCH (08:05)
[2022-05-26] MEDS: ASPIRIN 81 MG CHEW PO SCH (08:07)
--- NOTE | 2022-05-26 09:12 | Neurology Progress Note ---
Date of Service May 26, 2022 Assessment & Plan (1) Acute stroke due to ischemia: Plan Neurology Progress Note Assessment & Plan: Impression:pt with large left MCA ischemic stroke, s/p TNKase. pt with very mild rt hemiparesis and global aphasia. Pt clinically doing well and stable. Clinically stable overall. Recommendations: -continue DAPT for at least 90 days. agree with computer terminal operator cardiac monitoring. if pt definitely found to have atrial fib, will require OAC. at this point, pt likely is safe to consider for OAC in about 2 weeks. continue rehab and PT/OT/speech therapy. strict BP control with keep SBP below 150. please call us again if new question. Dr. William Foote MD [facility] Neurology Subjective: Patient Seen and Examined. The notes from the last 24 hours were reviewed.pt stable overall. no suggestion of worsening symptoms. Review of Systems: Per HPI and prior note. Physical Exam: Neuro: Level of consciousness:Alert and appropriate, still with dense global aphasia but does seems to understand simple instruction. nonfluent speech with mumbling sounds. Cranial Nerves:rt face droop. PERRL, tongue midline, hearing intact, shrugs shoulders Strength:5/5 throughout left side. RUE: 4+/5 t/o and RLE 5-/5 t/o. Sensation to light touch: Intact bilaterally grossly. Meds: See chart I personally reviewed all of the medications Chart reviewed Total time spent: 50 minutes (this includes chart review); more than 50% time spent in counseling or coordination of care. Admission and Anticipated Discharge Date Admission Date: May 20, 2022 Results & Data ([facility]) Vital Signs (Past 12 Hours) Vital Signs Temp Pulse Pulse Resp BP Pulse Ox O2 Del Method 05/26/22 07:39 36.6 C 70 18 123/61 96 Room Air 05/26/22 03:35 36.4 C L 57 L 20 167/68 H 96 Room Air 05/25/22 23:26 67 05/25/22 22:29 36.4 C L 54 L 16 149/75 H 97 Room Air
[2022-05-26] MEDS ORDERED: STROKE PATIENT DISCHARGE STA (12:55)
--- NOTE | 2022-05-26 15:15 | Discharge Summary ---
Date of Service May 26, 2022 Admission HPI Per Admitting Provider The patient is a 76-year-old male with a past medical history including hyperlipidemia, hypertension, allergic rhinitis, anxiety, arthritis, chronic rhinitis, LVH, left inguinal hernia, LV dysfunction, erectile dysfunction, mild aortic insufficiency, mild mitral regurgitation, nasal polyps, PVCs, rosacea, moderate KASEY, nasal septal deviation, RLS, right knee osteoarthritis with TKA, and prediabetes. The patient presented to the emergency department as noted above. Work-up in the emergency department for the CT head, CTA head and neck all of which were negative. Patient was then determined to be a candidate for TNK, and IV administration TNK was begun. Patient did start to have relatively quick partial improvement in right upper extremity strength, and attempted to speak but had difficulty with speech. Principal Diagnosis CVA Discharge Exam Constitutional: in no acute distress, pleasant. Vitals as above. HEENT: No scleral injection or discharge.Moist mucous membranes. Neck: Supple without lymphadenopathy or thyromegaly. Trachea midline. Lungs: Clear to auscultation bilaterally with good effort. Cardiac: Regular rate and rhythm. No murmurs. Abdomen: Bowel sounds present. Soft, nontender, and nondistended.No guarding. No hepatosplenomegaly. MSK: No cyanosis or clubbing. Extremities motor strength 5/5. Skin: No rashes, warm, dry. Neurologic: +Right sided Facial droop. Expressive aphasia. Discharge Data Allergies Allergy/AdvReac Type Severity Reaction Status Date / Time No Known Drug Allergies Allergy Verified 03/22/22 11:34 Consultations 05/20/22 21:24 ED Decision to Admit Stat 05/20/22 23:02 Consult Neurology Routine 05/20/22 23:31 Consult Manager Loss Prevention Routine 05/22/22 09:59 Consult Cardiology Routine Ordered Studies Laboratory Results WBC 5.08 K/ul (4.8-10.8) 05/24/22 04:05 RBC 4.56 M/uL (4.70-6.10) L 05/24/22 04:05 Hgb 12.2 g/dl (14.0-18.0) L 05/24/22 04:05 POC Hgb 13.3 g/dl (14.0-18.0) L 05/20/22 20:41 Hct 37.2 % (42.0-52.0) L 05/24/22 04:05 POC Hct 39 % (42-52) L 05/20/22 20:41 MCV 81.6 fL (80.0-100.0) 05/24/22 04:05 MCH 26.8 pg (25.0-34.0) 05/24/22 04:05 MCHC 32.8 g/dL (32.0-36.0) 05/24/22 04:05 RDW Std Deviation 42.2 fL (36.4-46.3) 05/24/22 04:05 RDW Coeff of Severo 14.3 % (11.5-14.5) 05/24/22 04:05 Plt Count 167 K/uL (130-400) 05/24/22 04:05 MPV 8.8 fL (9.4-12.4) L 05/24/22 04:05 Immature Gran % (Auto) 0.2 % 05/24/22 04:05 Neut % (Auto) 58.0 % 05/24/22 04:05 Lymph % (Auto) 31.5 % 05/24/22 04:05 Mercer % (Auto) 7.3 % 05/24/22 04:05 Eos % (Auto) 2.6 % 05/24/22 04:05 Baso % (Auto) 0.4 % 05/24/22 04:05 Neut # (Auto) 2.95 K/uL (1.40-6.50) 05/24/22 04:05 Lymph # (Auto) 1.60 K/uL (1.2-3.4) 05/24/22 04:05 Mercer # (Auto) 0.37 K/uL (0.11-0.59) 05/24/22 04:05 Eos # (Auto) 0.13 K/uL (0-0.50) 05/24/22 04:05 Baso # (Auto) 0.02 K/uL (0-0.2) 05/24/22 04:05 Immature Gran # (Auto) 0.01 K/uL (0.01-0.20) 05/24/22 04:05 PT 11.8 Seconds (9.0-12.0) 05/23/22 05:19 INR 1.1 (0.9-1.1) 05/23/22 05:19 APTT 27.4 Seconds (21.0-31.0) 05/23/22 05:19 PTT Ratio 1.0 05/23/22 05:19 POC Sodium 138 mmol/L (135-144) 05/20/22 20:41 Sodium 136 mmol/L (136-145) 05/24/22 04:05 POC Potassium 3.0 mmol/L (3.3-5.0) L 05/20/22 20:41 Potassium 3.8 mmol/L (3.5-5.1) 05/24/22 04:05 POC Chloride 101 mmol/L (101-112) 05/20/22 20:41 Chloride 106 mmol/L (98-107) 05/24/22 04:05 Carbon Dioxide 23 mmol/L (21-32) 05/24/22 04:05 POC Total CO2 23 mmol/L (24-31) L 05/20/22 20:41 Anion Gap 7 (3-11) 05/24/22 04:05 POC Anion Gap 18.0 mmol/L (16-25) 05/20/22 20:41 POC BUN 10 mg/dl (7-18) 05/20/22 20:41 BUN 6 mg/dl (6-23) 05/24/22 04:05 Creatinine 0.71 mg/dl (0.6-1.4) 05/24/22 04:05 POC Creatinine 0.8 mg/dl (0.6-1.3) 05/20/22 20:41 Est Cr Clr Drug Dosing 92.2 ml/min 05/24/22 04:05 Est GFR ( Amer) 106.4 ml/min 05/24/22 04:05 Est GFR (Non-Af Amer) 91.8 ml/min 05/24/22 04:05 BUN/Creatinine Ratio 8.5 (10-20) L 05/24/22 04:05 Glucose 91 mg/dl (70-99(Fasting)) 05/24/22 04:05 POC Glucose 86 mg/dl (70-99) 05/22/22 00:20 POC Glucose (other) 96 mg/dl (70-99) 05/20/22 20:41 Estimat Average Glucose 114 mg/dl 05/22/22 05:17 Hemoglobin A1c 5.6 % (4.5-5.6) 05/22/22 05:17 Calcium 8.6 mg/dl (8.5-10.1) 05/24/22 04:05 POC Ioniz Calcium [place] 1.11 mmol/l (1.12-1.32) L 05/20/22 20:41 Phosphorus 3.2 mg/dl (2.5-4.9) 05/23/22 05:19 Magnesium 1.9 mg/dl (1.7-2.4) 05/24/22 04:05 Iron 50 mcg/dl (35-175) 05/25/22 13:15 TIBC 321 mcg/dl (250-450) 05/25/22 13:15 Unsaturated IBC 271 mcg/dl (155-355) 05/25/22 13:15 Transferrin % Sat 16 % (20-50) L 05/25/22 13:15 Ferritin 326.5 ng/ml (8-388) 05/25/22 13:15 Total Bilirubin 1.3 mg/dl (0.2-1.0) H 05/23/22 05:19 Direct Bilirubin 0.2 mg/dl (0-0.2) 05/23/22 05:19 AST 19 U/L (13-39) 05/23/22 05:19 ALT 18 U/L (7-52) 05/23/22 05:19 Alkaline Phosphatase 61 U/L (34-104) 05/23/22 05:19 Troponin I High Sens 8.6 pg/ml (0-20) 05/20/22 20:38 Total Protein 5.9 gm/dl (6.0-8.3) L 05/23/22 05:19 Albumin 3.7 gm/dl (3.4-5.0) 05/23/22 05:19 Globulin 2.3 gm/dl (2.5-4.0) L 05/20/22 20:38 Albumin/Globulin Ratio 1.7 (0.9-2) 05/20/22 20:38 Triglycerides 155 mg/dl (0-150) H 05/22/22 05:17 Cholesterol 124 mg/dl (0-200) 05/22/22 05:17 LDL Cholesterol, Calc 63 mg/dl 05/22/22 05:17 VLDL Cholesterol, Calc 31 mg/dl (0-30) H 05/22/22 05:17 HDL Cholesterol 30 mg/dl 05/22/22 05:17 Cholesterol/HDL Ratio 4.1 (0-5) 05/22/22 05:17 Homocysteine 11.2 umol/L (<11.4) 05/24/22 07:39 Urine Color Yellow 05/20/22 21:35 Urine Appearance Clear (Clear) 05/20/22 21:35 Urine pH 7.5 (4.5-7.5) 05/20/22 21:35 Ur Specific [place] 1.024 (1.000-1.030) 05/20/22 21:35 Urine Protein Negative (Negative) 05/20/22 21:35 Urine Glucose (UA) Negative (Negative) 05/20/22 21:35 Urine Ketones Negative (Negative) 05/20/22 21:35 Urine Blood 2+ (Negative) H 05/20/22 21:35 Urine Nitrite Negative (Negative) 05/20/22 21:35 Urine Bilirubin Negative (Negative) 05/20/22 21:35 Urine Urobilinogen Negative (Negative) 05/20/22 21:35 Ur Leukocyte Esterase Negative (Negative) 05/20/22 21:35 Urine WBC (Auto) 5-10 /hpf (0-5) H 05/20/22 21:35 Urine RBC (Auto) 5-10 /hpf (0-4) H 05/20/22 21:35 U Hyaline Cast (Auto) 0 /lpf (0-5) 05/20/22 21:35 U Epithel Cells (Auto) 0-5 /lpf (0-5) 05/20/22 21:35 Urine Bacteria (Auto) Negative (Negative) 05/20/22 21:35 Calcium Oxalate Crystal Present (None Prsent) A 05/20/22 21:35 Nasal Screen MRSA (PCR) Negative (Negative) 05/20/22 23:10 SARS-CoV-2, RNA, NAAT NEGATIVE (NEGATIVE) 05/20/22 21:17 Blood Type O Positive 05/20/22 20:38 Antibody Screen NEGATIVE 05/20/22 20:38 Impressions Head CTA 05/20/22 20:[address] OF THE BRAIN; CT ANGIOGRAM OF THE BRAIN; CT ANGIOGRAM OF THE NECK CLINICAL HISTORY: Neurological deficit. Stroke like symptoms. COMPARISON STUDY: CT of the brain dated 11/02/2017. TECHNIQUE: Unenhanced axial CT scan of the brain is performed. Subsequently, following the IV administration of 120 of Optiray 320, CT angiogram of the head and neck was performed from the aortic arch to the vertex. Images are reviewed i n the axial, sagittal, and coronal planes. 3-D MIPS images are created and assessed. IV contrast was administered without complication. All measurements were calculated based on NASCET criteria. A dose lowering technique was utilized adhering to the principles of ALARA. CT DOSE: 1404.04 mGy.cm FINDINGS: Brain parenchyma: There is age related involutional change noting mild microangiopathic disease. There is no hemorrhage, mass effect, or evidence of acute territorial ischemia by CT criteria. There is no evidence of enhancing mass lesion on the angiogram phase images. The ventricles, sulci, and cisterns are prominent secondary to involutional change. Wen-white matter differentiation is preserved. No extra-axial fluid collection is seen. Thoracic aorta: Visualized portions of the thoracic aorta are normal in caliber. The aortic arch demonstrates standard 3-vessel anatomy. Right carotid arterial system: The right common carotid artery is widely patent, as are the right internal and external carotid arteries. Left carotid arterial system: The left common carotid artery is widely patent, as are the left internal and external carotid arteries. Calcified plaque is noted in the carotid bulb. Vertebral arteries: The vertebral arteries are widely patent bilaterally and codominant in the neck. Subclavian arteries: Widely patent bilaterally. Intracranial vasculature: There is atherosclerotic calcification of the cavernous carotid and vertebral arteries. The internal carotid arteries are patent at the skull base, as are the anterior and middle cerebral arteries bilat erally. The vertebrobasilar system and posterior cerebral arteries are widely patent. There is origin of left posterior cerebral artery. The left vertebral artery is slightly dominant. There is no aneurysm, high-grade stenosis, or focal vessel cut off seen throughout the intracranial circulation. Jugular veins: Patent bilaterally. Dural sinuses: Patent. Lung apices: Partially visualized upper lobe lung parenchyma appears clear. Soft tissues: The visualized pharyngeal soft tissues are normal in appearance noting angiographic phase technique. The oropharyngeal airway appears widely patent. The salivary and thyroid glands are normal in appearance. No cervical lymphadenopathy is seen. Skeletal structures: The skeletal structures are osteopenic. The calvarium appears intact. The cervical spine is maintained noted multilevel spondylosis. No lytic or blastic lesion is seen. Orbits: The bony orbits are intact. Orbital contents are normal as visualized noting bilateral ocular lens implants. Sinuses and mastoids: The paranasal sinuses are clear. The mastoid air cells are well pneumatized. IMPRESSION: 1. There is no hemorrhage, mass effect, or evidence of acute territorial ischemia by CT criteria. 2. Unremarkable CT angiogram of the brain. 3. Unremarkable CT angiogram of the neck. ACT 112: Negative or not required by law. Electronically signed by: Israel Simmons M.D. 05/20/2022 8:37 PM Neck CTA 05/20/22 20:[address] OF THE BRAIN; CT ANGIOGRAM OF THE BRAIN; CT ANGIOGRAM OF THE NECK CLINICAL HISTORY: Neurological deficit. Stroke like symptoms. COMPARISON STUDY: CT of the brain dated 11/02/2017. TECHNIQUE: Unenhanced axial CT scan of the brain is performed. Subsequently, following the IV administration of 120 of Optiray 320, CT angiogram of the head and neck was performed from the aortic arch to the vertex. Images are reviewed in the axial, sagittal, and coronal planes. 3-D MIPS images are created and assessed. IV contrast was administered without complication. All measurements were calculated based on NASCET criteria. A dose lowering technique was utilized adhering to the principles of ALARA. CT DOSE: 1404.04 mGy.cm FINDINGS: Brain parenchyma: There is age related involutional change noting mild microangiopathic disease. There is no hemorrhage, mass effect, or evidence of acute territorial ischemia by CT criteria. There is no evidence of enhancing mass lesion on the angiogram phase images. The ventricles, sulci, and cisterns are prominent secondary to involutional change. Wen-white matter differentiation is preserved. No extra-axial fluid collection is seen. Thoracic aorta: Visualized portions of the thoracic aorta are normal in caliber. The aortic arch demonstrates standard 3-vessel anatomy. Right carotid arterial system: The right common carotid artery is widely patent, as are the right internal and external carotid arteries. Left carotid arterial system: The left common carotid artery is widely patent, as are the left internal and external carotid arteries. Calcified plaque is noted in the carotid bulb. Vertebral arteries: The vertebral arteries are widely patent bilaterally and codominant in the neck. Subclavian arteries: Widely patent bilaterally. Intracranial vasculature: There is atherosclerotic calcification of the cavernous carotid and vertebral arteries. The internal carotid arteries are patent at the skull base, as are the anterior and middle cerebral arteries bilaterally. The vertebrobasilar system and posterior cerebral arteries are widely patent. There is origin of left posterior cerebral artery. The left vertebral artery is slightly dominant. There is no aneurysm, high-grade stenosis, or focal vessel cut off seen throughout the intracranial circulation. Jugular veins: Patent bilaterally. Dural sinuses: Patent. Lung apices: Partially visualized upper lobe lung parenchyma appears clear. Soft tissues: The visualized pharyngeal soft tissues are normal in appearance noting angiographic phase technique. The oropharyngeal airway appears widely patent. The salivary and thyroid glands are normal in appearance. No cervical lymphadenopathy is seen. Skeletal structures: The skeletal structures are osteopenic. The calvarium appears intact. The cervical spine is maintained noted multilevel spondylosis. No lytic or blastic lesion is seen. Orbits: The bony orbits are intact. Orbital contents are normal as visualized noting bilateral ocular lens implants. Sinuses and mastoids: The paranasal sinuses are clear. The mastoid air cells are well pneumatized. IMPRESSION: 1. There is no hemorrhage, mass effect, or evidence of acute territorial ischemia by CT criteria. 2. Unremarkable CT angiogram of the brain. 3. Unremarkable CT angiogram of the neck. ACT 112: Negative or not required by law. Electronically signed by: Israel Simmons M.D. 05/20/2022 8:37 PM Brain MRI 05/21/22 08:49 MR brain wo con HISTORY: 76 years-old Male CVA s/p TNK acute strokelike symptoms COMPARISON: Head CT and CTA studies 05/20/2022 TECHNIQUE: Multiplanar multisequence MRI of the brain was obtained without the use of IV contrast. FINDINGS: 9.7 x 4.7 cm focus of restricted diffusion involves the left MCA territory, frontal, parietal and temporal lobes with decreased signal on ADC map and increased T2/FLAIR signal. Mild associated gyral expansion with sulcal effacement from the cytotoxic edema. Partially empty sella. Degenerative changes of the cervical spine. Thrombosed left MCA branch on image 15 series 6. Involutional changes with mild patchy T2/FLAIR hyperintense foci throughout the white matter. Mild encephalomalacia and gliosis of the posterior right cerebral hemisphere from chronic insult. No acute intracranial hemorrhage, abnormal extra axial collection, hydrocephalus or intra-axial mass. Mass effect with 3 mm rightward midline shift. The remaining cerebral venous sinuses and major arterial flow voids appear patent. Prior bilateral lens repair. Mild leftward bowing and spurring the nasal septum. Mastoid air cells and paranasal sinuses are clear. IMPRESSION: 1. Large acute left MCA infarct with thrombosed distal left MCA branch. 2. 3 mm rightward midline shift. 3. No acute intracranial hemorrhage. ACT 112: Negative or not required by law. The above report was generated using voice recognition software. It may contain grammatical, syntax or spelling errors. Electronically signed by: Robbie Coffey M.D. 05/21/2022 11:57 AM Venous Doppler Study 05/22/22 12:48 US venous doppler LE BI CLINICAL HISTORY: cva and PFO TECHNIQUE: Right lower extremity real-time compression venous ultrasound with Color Doppler imaging. Utilizing real-time ultrasonic imaging multiple real time high-resolution ultrasonic images with compression and noncompression maneuvers of the deep venous system in addition to color doppler imaging were performed from the common femoral vein through the proximal calf veins. COMPARISON: None available at the time of this dictation. FINDINGS/IMPRESSION: Currently there is normal compressibility of the deep venous system from the common femoral vein through the proximal calf veins. Evaluation of the popliteal vein is limited due to patient positioning. ACT 112: Negative or not required by law. Electronically signed by: Casimiro Hobson M.D. 05/23/2022 7:[address] 05/25/22 11:30 CT OF THE HEAD WITHOUT CONTRAST CLINICAL HISTORY: r/o hemorrhagic conversion COMPARISON STUDY: Head CT May 24, 2022. CT DOSE: 691.05 mGy.cm TECHNIQUE: Helical axial images of the head were obtained without IV contrast. Automated exposure control was utilized for the study. A dose lowering technique was utilized adhering to the principles of ALARA. FINDINGS: Large acute left MCA territory infarct is again noted. Mass effect is unchanged with mild compression of the left lateral ventricle and minimal rightward midline shift. There is associated sulcal effacement which is also unchanged. No acute hemorrhage is present. Linear hyperdensities within the infarct are less conspicuous than on prior head CT. Appearance of the brain is unchanged. Basal cisterns are patent. IMPRESSION: Redemonstration of a large left MCA territory acute infarct. Stable mild mass effect. No evidence for hemorrhagic conversion. ACT 112: Negative or not required by law. Electronically signed by: Rigoberto Keys M.D. 05/25/2022 11:46 AM Hospital Course (1) Acute stroke due to ischemia: 76-year-old male with a past medical history including hyperlipidemia, hyper tension, allergic rhinitis, anxiety, arthritis, chronic rhinitis, LVH, left inguinal hernia, LV dysfunction, erectile dysfunction, mild aortic insufficiency, mild mitral regurgitation, PVCs, rosacea, moderate KASEY, nasal septal deviation, RLS, right knee osteoarthritis with TKA who presented due to sudden-onset right-sided weakness and speech difficulties. Acute L MCA Ischemic Stroke PFO -s/p TNKase -- no complications -Initial CT head without evidence of hemorrhage, mass effect, or evidence of acute territorial ischemia -CTA brain/neck unremarkable -MRI brain showing large acute left MCA infarct with thrombosed distal left MCA branch, 3 mm rightward midline shift, no acute intracranial hemorrhage -Repeat CT head (05/21): 24h post TNK showing large acute left MCA infarct with progressively worsened cytotoxic edema, 4mm rightward midline shift, thrombosed distal branch of left MCA, no acute intracranial hemorrhage. -Repeat CT head (05/24): Early hemorrhagic conversion is considered less likely however continued CT follow-up is recommended to exclude this possibility. -Repeat CT head (05/25): stable, without hemorrhage -Echocardiogram showing mild concentric LVH, EF 55 to 60%,moderate size PFO with bubbles easily crossing from the right atrium to the left atrium -Neuro and cardiology consulted -continue asa 81mg daily + eliquis 2.5mg bid; initially on DAPT versus ASA+DOAC due to concern for hemorrhagic conversion but after further discussion with both cardiology and neurology both agreed it was ok to continue with ASA+DOAC going forward in efforts to reduce risk of repeat stroke with thought that stroke was due to previous DVT. Eliquis will be dosed for DVT ppx given doppler US lower extremities showed no signs of active DVT. -h/o afib, will require 4 wk monitor, no DVT on doppler at this time -hypercoagulable profile pending, labs obtained at [facility] -potential candidate to close his PFO if we do not find a secondary cause for his stroke -Cont. 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 - Cont. home ropinirole qhs - iron levels low normal; started on iron pills in hopes of helping symptoms - may consider bid dosing for ropinerole Hypertension -No longer need for permissive hypertension. -Cont. HCTZ, olmesartan -Cardiology consulted: goal for now has been a systolic blood pressure under 160 as we switch to more normal blood pressures his losartan could be switched over to valsartan 320 mg daily to provide better blood pressure control without having to add more medication Hyperlipidemia -Lipid panel showing TG 155, total cholesterol 124, LDL 63, HDL 30 -Cont. atorvastatin 80 mg DM2 -not on therapy -A1c 5.6 BPH with LUTS -Han removed 05/24 -cont. home tamsulosin GERD -cont. home omeprazole ED -cont. home sildenafil (2) Hypertension: (3) Hyperlipidemia: (4) BPH w urinary obs/LUTS: (5) GERD (gastroesophageal reflux disease): Total Time Total Time Spent Total Time Spent (In Minutes): 30 Discharge Plan Discharge Items Patient Disposition: Transfer Inpatient Rehab Fac Reason For Visit: CVA Discharge Diagnosis: CVA Activity: Per Instructions section Non-emergency contact: Primary Care Provider, Junior Staff Accountant and Neurologist Call non-emergency contact if: you have any medication questions Follow-up/Referrals: Travis Aguirre DO [Physician] - Stanford Marcano DO [Primary Care Provider] - William Foote MD [Physician] - Diet: Heart Healthy Addtl Attending Provider Instructions: 76-year-old male with a past medical history including hyperlipidemia, hypertension, allergic rhinitis, anxiety, arthritis, chronic rhinitis, LVH, left inguinal hernia, LV dysfunction, erectile dysfunction, mild aortic insufficiency, mild mitral regurgitation, PVCs, rosacea, moderate KASEY, nasal septal deviation, RLS, right knee osteoarthritis with TKA who presented due to sudden-onset right-sided weakness and speech difficulties. Acute L MCA Ischemic Stroke PFO -s/p TNKase -- no complications -Initial CT head without evidence of hemorrhage, mass effect, or evidence of acute territorial ischemia -CTA brain/neck unremarkable -MRI brain showing large acute left MCA infarct with thrombosed distal left MCA branch, 3 mm rightward midline shift, no acute intracranial hemorrhage -Repeat CT head (05/21): 24h post TNK showing large acute left MCA infarct with progressively worsened cytotoxic edema, 4mm rightward midline shift, thrombosed distal branch of left MCA, no acute intracranial hemorrhage. -Repeat CT head (05/24): Early hemorrhagic conversion is considered less likely however continued CT follow-up is recommended to exclude this possibility. -Repeat CT head (05/25): stable, without hemorrhage -Echocardiogram showing mild concentric LVH, EF 55 to 60%,moderate size PFO with bubbles easily crossing from the right atrium to the left atrium -Neuro and cardiology consulted -continue asa 81mg daily + eliquis 2.5mg bid -h/o afib, will require 4 wk monitor, no DVT on doppler at this time -hypercoagulable profile pending, labs taken at [facility] -potential candidate to close his PFO if we do not find a secondary cause for his stroke -Cont. high intensity atorvastatin -correction rehab at [facility] Left Leg Fasciculations RLS - Likely benign fasciculations in the setting of post-stroke, concern of possible focal seizures - Per neurology recommendation, Keppra 500 BID x7days total - Cont. home ropinirole qhs - iron levels low normal; started on iron pills in hopes of helping symptoms - may consider bid dosing for ropinerole Hypertension -No longer need for permissive hypertension. -Cont. HCTZ, olmesartan -Cardiology consulted: goal for now has been a systolic blood pressure under 160 as we switch to more normal blood pressures his losartan could be switched over to valsartan 320 mg daily to provide better blood pressure control without having to add more medication Hyperlipidemia -Lipid panel showing TG 155, total cholesterol 124, LDL 63, HDL 30 -Cont. atorvastatin 80 mg DM2 -not on therapy -A1c 5.6 BPH with LUTS -Han removed 05/24 -cont. home tamsulosin GERD -cont. home omeprazole ED -cont. home sildenafil Pending Studies at Discharge: Yes (hypercoagulable panel) Stand-Alone Forms: [employer], Smoking Cessation, Medications to Prevent Stroke Skilled Items Patient informed of condition?: Yes DNR: No Discharge Level of Care: Acute rehab Communicable Disease: No Discharge Prognosis: Stable Lines: None Urinary Catheter: No Medications and DC Order Prescriptions: New ferrous sulfate 325 mg (65 mg iron) Tablet,Delayed Release (Dr/Ec) 325 mg PO Q OTHER DAY Qty: 30 0RF aspirin [Children's Aspirin] 81 mg Tablet,Chewable 81 mg PO DAILY Qty: 30 0RF ropinirole 1 mg Tablet 1 mg PO HS Qty: 30 0RF levetiracetam [Keppra] 500 mg Tablet 500 mg PO BID Qty: 9 0RF Rx Instructions: next dose evening 05/26/22 Eliquis 2.5 mg tablet 2.5 mg PO BID Qty: 30 0RF Rx Instructions: next dose morning 05/27/22 Continued sildenafil 100 mg tablet 100 mg PO DAILY PRN (Reason: sexual activity) Qty: 36 0RF Rx Instructions: administer 30 minutes to 4 hours before activity atorvastatin 80 mg tablet 80 mg PO QAM Qty: 90 3RF hydrochlorothiazide 25 mg tablet 25 mg PO QAM Qty: 90 3RF montelukast 10 mg tablet 10 mg PO QAM Qty: 90 3RF olmesartan 40 mg tablet 40 mg PO DAILY Qty: 90 3RF azelastine 205.5 mcg (0.15 %) spray,non-aerosol 2 spray INTNAS BID PRN (Reason: sinus congestion) Qty: 30 11RF Rx Instructions: administer into each nostril fluticasone propionate [Flonase Allergy Relief] 50 mcg/actuation spray,suspension 2 spray INTRANASAL BID PRN (Reason: sinus congestion ) Qty: 16 11RF famotidine 20 mg tablet 20 mg PO Q2D tamsulosin 0.4 mg capsule PO Discontinued ropinirole 0.5 mg tablet 1 mg PO DAILY Rx Instructions: 1 or 2 daily for restless legs amoxicillin-pot clavulanate 875-125 mg tablet 1 tab PO BID 10 Days Qty: 20 0RF Discharge Orders: Discharge Order (Routine); Ordered 05/26/22 Ordered By: Antelmo Mcfarland Admission Data Admit Date/Time: 05/20/22 22:05 Attending Provider: Juan Mayen Admit Provider: Isai Duncan Primary Care Provider: Stanford Marcano Other Providers: Isai Duncan ; William Foote ; Huy Mohamud ; Travis Aguirre ; [facility] Other Interventions: Discharge Summary Assessment (RN) Last Done: 05/26/22 12:15 Supervising Physician Co-Signing Physician Notes Attending attestation Pt seen and examined in concert with Dr. Mcfarland. In agreement with the documented findings as noted in the resident documentation with any exceptions or additions as noted here. Continued improvement in strength and capacity to follow instructions and interact. On examination, S1/S2 nl RRR no MCG. CTAB. Abd NT/ND BS+ve. 4+/5 str of the RUE excepting the right 2nd digit flexion/ext Left MCA CVA s/p TNKase with midline shift 2/2 ?cytotoxic edema - cardiology, neurology consult - after discussion with cardiology and neurology, will continue ASA and d/c Plavix in favor of adding DOAC HTN - HCTZ, losartan. PFO in the setting of CVA - agree w/ r/o other causes aside from PFO, hypercoag w/u pending. Left leg fasciculations in the setting of RLS - Continue Keppra x 7 days then D/C, continue home ropinerole qHS and consider alternative management with ongoing symptoms Else see resident documentation as noted. Total attending physician time spent with this patient's care on the day of discharge: 35 minutes Resident Activity Tracking Resident Involvement: Resident Care Provided Care Provided: Adult Hospital Medicine
[2022-05-27 01:37] LABS: Anti-Thrombin III Activity 90 % normal (80-135); Protein S Functional(Activity) 102 % normal (70-150)
[2022-06-01 15:51] LABS: Factor 5 Mutation NEGATIVE
== END 2022-05-26 13:40 | DRG 61 ==
LOC: ED 20:15 → 1E 22:05 → SUATTDRO 22:05 → 1E 22:46 → 2E 05-24 21:54